=== PATIENT | male | born 1970 | race Caucasian/White ===

== ENCOUNTER 2024-02-09 16:49 | Inpatient (IN) ==
--- NOTE | 2024-02-09 17:11 | ED Triage Note ---
Date of Service February 09, 2024 Provider in Triage Author: Mauricio Patel History of Present Illness This patient was briefly evaluated while in triage. An abbreviated physical exam was performed. This patient is a 54-year-old Male who presents to the ED for evaluation abdominal pain, constipation x 2 weeks only passing gas using stool softeners, laxatives without relief had 2 surgeries this month: 01/25-colonoscopy with polypectomy and 01/31- parathyroidectomy Physical Exam GENERAL: NAD CARDIOVASCULAR: RRR RESPIRATORY: CTA ABDOMEN: BS x 4. Distended, diffusely TTP. Initial orders for labs and / or imaging were placed and patient was placed in the waiting area until a bed is available. Please see further documentation for the full ED course.
[2024-02-09 17:50] LABS: Basophils # (auto) 0.04 K/uL (0.00-0.20); Basophils % (auto) 0.2 %; Eosinophils # (auto) 0.07 K/uL (0.00-0.50); Eosinophils % (auto) 0.4 %; Hematocrit (blood only) 38.1 % (42.0-52.0); Hemoglobin 13.1 g/dl (14.0-18.0); Immature Granulocytes % (auto) 0.5 %; Lymphocytes % (auto) 13.6 %; Mean Corpuscular Hemoglobin 31.1 pg (25.0-34.0); Mean Corpuscular Hgb Conc 34.4 g/dL (32.0-36.0); Mean Corpuscular Volume 90.5 fL (80.0-100.0); Mean Platelet Volume 10.6 fL (9.4-12.4); Monocytes # (auto) 1.53 K/uL (0.11-0.59); Monocytes % (auto) 8.4 %; Neutrophils # (auto) 14.08 K/uL (1.40-6.50); Neutrophils % (auto) 76.9 %; Platelet Count 400 K/uL (130-400); RDW Coefficient of Variation 12.3 % (11.5-14.5); RDW Standard Deviation 40.7 fL (36.4-46.3); Red Blood Count 4.21 M/uL (4.70-6.10); White Blood Count 18.32 K/ul (4.8-10.8)
[2024-02-09 17:57] LABS: Albumin Globulin Ratio 1.3 (0.9-2); BUN Creatinine Ratio 22.1 (10-20); Bilirubin,Total 0.5 mg/dl (0.2-1.0); Calcium 9.7 mg/dl (8.6-10.3); Creatinine Clr Calc Pharmacy 87.6 ml/min; Potassium 3.4 mmol/L (3.5-5.1)
[2024-02-09 18:12] LABS: Thyroid Stimulating Hormone 1.439 uIu/ml (0.300-4.500)
--- NOTE | 2024-02-09 18:37 | XRay Report ---
EXAM: Radiograph of the Abdomen 1 View INDICATION: No bowel movement for 2 weeks. TECHNIQUE: Frontal supine view of the abdomen/pelvis. COMPARISON: 09/20/2015 FINDINGS: Limitations: None. Gastrointestinal tract: Large amounts of stool and redundant loops of right, transverse and proximal descending colon. The majority of the descending and the entire rectosigmoid colon only contains a small amount of gas. Organs: Increased soft tissue density in the pelvis could reflect distention of the urinary bladder. Bones/joints: On 1 view a small linear metallic density which has the appearance of a surgical clip projects over the coccyx. Soft tissues: No abnormality noted. No radiopaque foreign body noted. Vasculature: Stable right pelvic phleboliths. IMPRESSION: Large amounts of formed stool and redundant loops of right, transverse and proximal descending colon. The more distal colon is only filled with a small amount of gas. Developing colonic obstruction should be considered. CT abdomen pelvis with oral and IV contrast recommended. ACT 112: Negative or not required by law. Electronically signed by Ashely Escoto 02-09-2024 6:37 PM
[2024-02-09] MEDS: OPTIRAY 320 100ml IV ONE (18:40)
--- NOTE | 2024-02-09 18:59 | CT Scan Report ---
EXAM: CT Abdomen and Pelvis With Intravenous Contrast INDICATION: Constipation since colonoscopy 2 weeks ago. Polyp removed. TECHNIQUE: Axial computed tomography images of the abdomen and pelvis with intravenous contrast. Sagittal and coronal reformatted images were created and reviewed. This CT exam was performed using one or more of the following dose reduction techniques: automated exposure control, adjustment of the mA and/or kV according to patient size, and/or use of iterative reconstruction technique. CONTRAST: 90ml of Optiray 320 was administered intravenously. COMPARISON: Plain radiographs the same day and CT abdomen pelvis 09/20/2015 FINDINGS: Limitations: None. Lung bases: No abnormality noted. Pleural space: No visualized pleural effusion or pneumothorax. Heart: No abnormality noted. Mediastinum: No abnormality noted. ABDOMEN: Liver: No abnormality noted. Gallbladder and bile ducts: No calcified stones or surrounding fluid. Pancreas: Homogeneous enhancement. No mass, inflammation or ductal dilation. Spleen: No significant abnormality noted. Adrenals: No significant abnormality noted. Kidneys and ureters: There is bilateral heterogeneous renal enhancement and mild perinephric stranding left greater than right. There is mild bilateral hydroureteronephrosis. No stone. No urinary gas. Simple cyst noted in the left kidney. No further assessment required. Stomach and bowel: The collapsed rectum may be mildly thickened and inflamed. No perirectal fluid or gas. Large amounts of stool in the redundant right and transverse colon. The splenic flexure is mildly distended with air. The descending colon is relatively collapsed. Grossly normal appearance of the collapsed stomach suboptimally assessed. No intestinal thickening. No mesenteric inflammation. PELVIS: Appendix: No findings to suggest acute appendicitis. Bladder: The urinary bladder is moderate to severely distended measuring 15.1 cm long by 13.3 cm transverse by 15.4 cm AP. No stones or gas. No. Reproductive: The prostate has enlarged in the interval measuring 6.0 x 6.8 x 5.9 cm. There is a prominent nodule in the median lobe indenting the bladder measuring 1.8 x 2.4 x 1.9 cm. ABDOMEN and PELVIS: Intraperitoneal space: No free air. No significant fluid collection. Bones/joints: No acute changes. Soft tissues: No significant abnormality noted. Vasculature: No abdominal aortic aneurysm. Lymph nodes: No pathologically enlarged lymph nodes. IMPRESSION: 1. Question mild proctitis. 2. Bilateral pyelonephritis and mild hydroureteronephrosis to a moderate to severely distended urinary bladder. The hydronephrosis could reflect increased back pressure from the distended bladder. Correlate with urinalysis. 3. Large amounts of stool in the right and transverse colon without obstructing mass noted. 4. Enlarged prostate with a prominent nodule in the median lobe indenting the bladder. Correlate clinically for neoplasm. ACT 112: Negative or not required by law. Electronically signed by Ashely Escoto 02-09-2024 6:59 PM
[2024-02-09 19:07] LABS: Appearance Urine Clear (Clear); Bacteria Urine Automated None Seen (None Seen); Bilirubin Urine Negative (Negative); Blood Urine 1+ (Negative); Cast Urine Automated 0-2 /lpf (0-2); Color Urine Yellow; Epithelial Cell Urine Auto 0-2 /hpf (0-2); Glucose Urine UA Negative (Negative); Ketones Urine Negative (Negative); Leukocyte Esterase Urine 2+ (Negative); Nitrite Urine Negative (Negative); Protein Urine Negative (Negative); Specific Gravity Urine 1.019 (1.000-1.030); Urobilinogen Urine Negative (Negative); WBC Urine Automated 21-50 /hpf (0-5)
[2024-02-09] MEDS: MAGNESIUM HYDROXIDE SUSP 30 ML UDC PO ONE (19:47)
[2024-02-09] MEDS: cefTRIAXone SODIUM 2,000 MG/50 ML BAG IV STA (21:52)
--- NOTE | 2024-02-09 23:20 | Emergency Department Note ---
Impression & Plan Bladder outlet obstruction, Constipation, Postobstructive diuresis, Acute pyelonephritis ED Provider Note NAME: PARKER GARNER AGE: 54 SEX: M : 1970 ARRIVES VIA: Walk-In INFORMANT: Patient, ED PROVIDER(S): Ganga Hoskins MD CHIEF COMPLAINT: Constipation HPI: This is a 54-year-old male present for constipation. Patient states that he had a colonoscopy done about 2 weeks ago. Since then he has had no significant bowel movement. He had 1 small 1 with a suppository but otherwise no movement with other [id number] medications. He notes he is passing gas otherwise. He notes no trouble urinating. No fever, chills, nausea or vomiting. Does have abdominal pain. ROS: See above HPI for pertinent positives & negatives. A total of 10 systems reviewed and were otherwise negative. PAST MEDICAL HISTORY: See Below PAST SURGICAL HISTORY: See Below FAMILY HISTORY: See Below SOCIAL HISTORY: See Below HOME MEDICATIONS: See Below ALLERGIES: See Below VITALS: See Below PHYSICAL EXAMINATION: General: resting comfortably in no acute distress Head: Normocephalic and atraumatic Eyes: Normal inspection, extraocular muscles intact Ear, nose, throat: Normal external exam Neck: Normal range of motion Respiratory: lungs clear to auscultation bilaterally Cardiovascular: Regular rate/rhythm, no murmur GI: soft, nontender, no guarding or rebound Extremities: nontender, moves all extremities Neuro: The patient awake and alert, appropriately conversive, no focal deficits, symmetric faces Skin: Warm, dry, and intact MEDICAL DECISION MAKING: This is a 54-year-old male present for constipation. Patient has not had a bowel movement in over 2 weeks. KUB ordered at triage which does reveal significant stool burden as interpreted by me. CT imaging already ordered. -Upon independent interpretation the patient has significantly distended bladder. Patient did urinate for urinalysis but was only able to be about half of the urine cup. -Mann catheter placed by nursing staff with immediate 1600 cc returned this is emptied and patient had over 250. CC in the next hour. He has consistent 200 cc of urine per hour over the next 2 hours as well. -Concern for post obstructive diuresis -The CT imaging reveals Mild proctitis, bilateral pyelonephritis with mild hydroureteronephrosis and moderate severely distended urinary bladder. Large amount of stool in the right/transverse colon without obstructing mass. Otherwise there is a large prostate with a nodule which patient was made aware of. -Will give ceftriaxone for the pyelonephritis, urinalysis does confirm signs of UTI -Due to the combination of possible postobstructive diuresis, pyelonephritis bilaterally, elevated white count, will admit to hospital discussed care with Dr. Reid Differential diagnosis: Bowel perforation, bowel obstruction, colitis, diverticulitis, cholecystitis, pancreatitis, Independent History obtained from: [facility] interpreted by me: ECG: None Cardiac Monitoring: An order was placed for continuous cardiac monitoring. The monitor shows a rate of 60 with sinus rhythm. Past Med/Surg History Problem List (Updated 02/10/24 @ 01:04 by Ganga Hoskins MD) Acute pyelonephritis (Acute) Postobstructive diuresis (Acute) Constipation (Acute) Bladder outlet obstruction (Acute) Pyelonephritis Social History (System 12/19/21 @ 08:01 by Abby Mcqueen) Smoking Status: Current every day smoker Feels Safe at Home: Yes Allergies Allergies Allergy/AdvReac Type Severity Reaction Status Date / Time No Known Allergies Allergy Unverified 02/09/24 17:12 Home Meds Home Medications Medication Instructions Recorded Confirmed bisacodyl 10 mg rectal suppository 10 mg AR DAILY PRN Constipation 02/09/24 02/09/24 (Dulcolax (bisacodyl)) docusate sodium 100 mg capsule 100 mg PO UD PRN Constipation 02/09/24 02/09/24 (Colace) magnesium hydroxide 400 mg/5 mL 15 ml PO UD PRN Constipation 02/09/24 02/09/24 oral suspension (Milk of Magnesia) Results & Data (ED) Vital Signs Vital Signs - 24 hr 02/09/24 17:10 02/09/24 18:59 02/09/24 22:00 Temperature 36.4 C L Temperature Source Temporal Artery Scan Pulse Rate 98 H Pulse Rate [Apical] 85 65 Respiratory Rate 16 16 18 Respiratory Effort / Characteristics Non-Labored Spontaneous Respiratory Depth Normal Blood Pressure 155/102 H Blood Pressure [Right Arm] 159/113 H 133/88 Blood Pressure Mean 119 Blood Pressure Mean [Right Arm] 128 103 Blood Pressure Position Sitting Pulse Oximetry 98 98 97 Oxygen Delivery Method Room Air Room Air Sepsis Recent Fever Within 48 Hours No Sepsis New/Unexplained Change in Mental Status N/A Sepsis Action Taken by Nursing No Action Required Laboratory Data 02/09/24 17:22 02/09/24 17:22 Lab Results 02/09/24 Range/Units 17:22 WBC 18.32 H (4.8-10.8) K/ul RBC 4.21 L (4.70-6.10) M/uL Hgb 13.1 L (14.0-18.0) g/dl Hct 38.1 L (42.0-52.0) % MCV 90.5 (80.0-100.0) fL MCH 31.1 (25.0-34.0) pg MCHC 34.4 (32.0-36.0) g/dL RDW Std Deviation 40.7 (36.4-46.3) fL RDW Coeff of [place] 12.3 (11.5-14.5) % Plt Count 400 (130-400) K/uL MPV 10.6 (9.4-12.4) fL Immature Gran % (Auto) 0.5 % Neut % (Auto) 76.9 % Lymph % (Auto) 13.6 % [place] % (Auto) 8.4 % Eos % (Auto) 0.4 % Baso % (Auto) 0.2 % Neut # (Auto) 14.08 H (1.40-6.50) K/uL Lymph # (Auto) 2.50 (1.20-3.40) K/uL [place] # (Auto) 1.53 H (0.11-0.59) K/uL Eos # (Auto) 0.07 (0.00-0.50) K/uL Baso # (Auto) 0.04 (0.00-0.20) K/uL Immature Gran # (Auto) 0.10 (0.01-0.20) K/uL Sodium 138 (136-145) mmol/L Potassium 3.4 L (3.5-5.1) mmol/L Chloride 103 (98-107) mmol/L Carbon Dioxide 26 (21-32) mmol/L Anion Gap 9 (3-11) BUN 19 (6-23) mg/dl Creatinine 0.86 (0.6-1.4) mg/dl Est Cr Clr Drug Dosing 87.6 ml/min eGFR 102.26 BUN/Creatinine Ratio 22.1 H (10-20) Glucose 125 H (70-99(Fasting)) mg/dl Calcium 9.7 (8.6-10.3) mg/dl Total Bilirubin 0.5 (0.2-1.0) mg/dl AST 15 (13-39) U/L ALT 21 (7-52) U/L Alkaline Phosphatase 67 (34-104) U/L Total Protein 7.0 (6.0-8.3) gm/dl Albumin 4.0 (3.4-5.0) gm/dl Globulin 3.0 (2.5-4.0) gm/dl Albumin/Globulin Ratio 1.3 (0.9-2) Lipase 11 (11-82) U/L TSH 1.439 (0.300-4.500) uIu/ml Administered Medications Discontinued Medications Ceftriaxone Sodium (Rocephin) 2,000 mg in 50 mls @ 100 mls/hr IV NOW STA Stop: 02/09/24 21:56 Last Infusion: 02/09/24 22:25 Dose: Infused Documented By: MARIA LUZ Admin: 02/09/24 21:52 Dose: 100 mls/hr Documented By: MARIA LUZ Ioversol (Optiray 320 100ml) 90 ml IV ONCE ONE Stop: 02/09/24 18:40 Last Admin: 02/09/24 18:40 Dose: 90 ml Documented By: GERARD Magnesium Hydroxide (Magnesium Hydroxide Susp 30 Ml Udc) 30 ml PO NOW ONE Stop: 02/09/24 19:35 Last Admin: 02/09/24 19:47 Dose: 30 ml Documented By: MARIA LUZ Imaging Data Radiologist's Impression: Abdomen/Pelvis CT 02/09/24 17:11 EXAM: CT Abdomen and Pelvis With Intravenous Contrast INDICATION: Constipation since colonoscopy 2 weeks ago. Polyp removed. TECHNIQUE: Axial computed tomography images of the abdomen and pelvis with intravenous contrast. Sagittal and coronal reformatted images were created and reviewed. This CT exam was performed using one or more of the following dose reduction techniques: automated exposure control, adjustment of the mA and/or kV according to patient size, and/or use of iterative reconstruction technique. CONTRAST: 90ml of Optiray 320 was administered intravenously. COMPARISON: Plain radiographs the same day and CT abdomen pelvis 09/20/2015 FINDINGS: Limitations: None. Lung bases: No abnormality noted. Pleural space: No visualized pleural effusion or pneumothorax. Heart: No abnormality noted. Mediastinum: No abnormality noted. ABDOMEN: Liver: No abnormality noted. Gallbladder and bile ducts: No calcified stones or surrounding fluid. Pancreas: Homogeneous enhancement. No mass, inflammation or ductal dilation. Spleen: No significant abnormality noted. Adrenals: No significant abnormality noted. Kidneys and ureters: There is bilateral heterogeneous renal enhancement and mild perinephric stranding left greater than right. There is mild bilateral hydroureteronephrosis. No stone. No urinary gas. Simple cyst noted in the left kidney. No further assessment required. Stomach and bowel: The collapsed rectum may be mildly thickened and inflamed. No perirectal fluid or gas. Large amounts of stool in the redundant right and transverse colon. The splenic flexure is mildly distended with air. The descending colon is relatively collapsed. Grossly normal appearance of the collapsed stomach suboptimally assessed. No intestinal thickening. No mesenteric inflammation. PELVIS: Appendix: No findings to suggest acute appendicitis. Bladder: The urinary bladder is moderate to severely distended measuring 15.1 cm long by 13.3 cm transverse by 15.4 cm AP. No stones or gas. No. Reproductive: The prostate has enlarged in the interval measuring 6.0 x 6.8 x 5.9 cm. There is a prominent nodule in the median lobe indenting the bladder measuring 1.8 x 2.4 x 1.9 cm. ABDOMEN and PELVIS: Intraperitoneal space: No free air. No significant fluid collection. Bones/joints: No acute changes. Soft tissues: No significant abnormality noted. Vasculature: No abdominal aortic aneurysm. Lymph nodes: No pathologically enlarged lymph nodes. IMPRESSION: 1. Question mild proctitis. 2. Bilateral pyelonephritis and mild hydroureteronephrosis to a moderate to severely distended urinary bladder. The hydronephrosis could reflect increased back pressure from the distended bladder. Correlate with urinalysis. 3. Large amounts of stool in the right and transverse colon without obstructing mass noted. 4. Enlarged prostate with a prominent nodule in the median lobe indenting the bladder. Correlate clinically for neoplasm. ACT 112: Negative or not required by law. Electronically signed by Ashely Escoto 02-09-2024 6:59 PM KUB X-Ray 02/09/24 17:13 EXAM: Radiograph of the Abdomen 1 View INDICATION: No bowel movement for 2 weeks. TECHNIQUE: Frontal supine view of the abdomen/pelvis. COMPARISON: 09/20/2015 FINDINGS: Limitations: None. Gastrointestinal tract: Large amounts of stool and redundant loops of right, transverse and proximal descending colon. The majority of the descending and the entire rectosigmoid colon only contains a small amount of gas. Organs: Increased soft tissue density in the pelvis could reflect distention of the urinary bladder. Bones/joints: On 1 view a small linear metallic density which has the appearance of a surgical clip projects over the coccyx. Soft tissues: No abnormality noted. No radiopaque foreign body noted. Vasculature: Stable right pelvic phleboliths. IMPRESSION: Large amounts of formed stool and redundant loops of right, transverse and proximal descending colon. The more distal colon is only filled with a small amount of gas. Developing colonic obstruction should be considered. CT abdomen pelvis with oral and IV contrast recommended. ACT 112: Negative or not required by law. Electronically signed by Ashely Escoto 02-09-2024 6:37 PM Discharge Plan Visit Data Chief Complaint: Abdominal Pain Stated Complaint: ABD PAIN, CONSTIPATION, ED Provider: Ganga Hoskins Discharge Problem: Bladder outlet obstruction, Constipation, Postobstructive diuresis, Acute pyelonephritis Discharge Instructions Interventions: ED Discharge Assessment Last Done: 02/09/24 23:55
--- NOTE | 2024-02-09 23:55 | History & Physical Report ---
Date of Service February 09, 2024 Assessment & Plan (1) Pyelonephritis: Plan: 51-year-old male with past medical history significant for primary hyperparathyroidism, parathyroid adenoma, GERD, osteoporosis, ongoing tobacco abuse presents with abdominal pain and constipation. Patient had colonoscopy on January 26, 2024. Patient states since colonoscopy did not moved his bowels. He thinks he is micturating okay. Last few days he is having some pain while m icturating. Denies any blood in the urine. Denies any fevers. He also has abdominal pain which got progressively worse to 8/10 in severity. Has some nausea. No vomiting. Appetite has been down. Denies chest pain or shortness of. No headache. Vision is okay. No runny nose or sore throat. No cough. Hemodynamics are okay. Pyelonephritis 53-year-old male present with abdominal pain, constipation CT scan showing distended bladder and enlarged prostate, bilateral perinephritis and mild hydroureteronephrosis Status post Mann catheter in the ER which drained significant amount of urine UA is positive and has leukocytosis Received Rocephin in the ER Will continue with Zosyn IV fluids Consult urology in a.m. for further recommendations Close monitor Proctitis Constipation possibly from above Empiric Zosyn Patient had colonoscopy on January 26, 2024 and had polypectomy in the rectosigmoid region which showed tubulovillous adenoma with focal surface high- grade dysplasia and plan for repeat colonoscopy 9 months Follow-up with GI History of hyperparathyroidism primary Status post parathyroidectomy Biopsy showed parathyroid adenoma Follow-up with endocrinology and ENT DVT prophylaxis SCDs for now Disposition Medical floor Full code. History of Present Illness Chief Complaint: Constipation and abdominal pain Primary Care Provider: Sylvia Rubin MD 51-year-old male with past medical history significant for primary hyperparathyroidism, parathyroid adenoma, GERD, osteoporosis, ongoing tobacco abuse presents with abdominal pain and constipation. Patient had colonoscopy on January 26, 2024. Patient states since colonoscopy did not moved his bowels. He thinks he is micturating okay. Last few days he is having some pain while micturating. Denies any blood in the urine. Denies any fevers. He also has abdominal pain which got progressively worse to 8/10 in severity. Has some nausea. No vomiting. Appetite has been down. Denies chest pain or shortness of. No headache. Vision is okay. No runny nose or sore throat. No cough. Hemodynamics are okay. Past medical history. As mentioned above Past surgical history. Colonoscopy. EGD. Bilateral parathyroidectomy. Social history. Smokes 0.5 packs a day for last 26 years. No alcohol use currently. No drug use. Family history. Father had diabetes. Allergies Allergy/AdvReac Type Severity Reaction Status Date / Time No Known Allergies Allergy Unverified 02/09/24 17:12 Home Medications Medication Instructions Recorded Confirmed Type bisacodyl 10 mg rectal suppository 10 mg LA DAILY PRN Constipation 02/09/24 02/09/24 History (Dulcolax (bisacodyl)) docusate sodium 100 mg capsule 100 mg PO UD PRN Constipation 02/09/24 02/09/24 History (Colace) magnesium hydroxide 400 mg/5 mL 15 ml PO UD PRN Constipation 02/09/24 02/09/24 History oral suspension (Milk of Magnesia) Past Med/Surg History Problem List (Updated 02/10/24 @ 01:04 by Ganga Hoskins MD) Acute pyelonephritis (Acute) Postobstructive diuresis (Acute) Constipation (Acute) Bladder outlet obstruction (Acute) Pyelonephritis Social History (System 12/19/21 @ 08:01 by Abby Mcqueen) Smoking Status: Light tobacco smoker Tobacco Type: Cigarettes Second Hand Exposure: No; Do You Dip or Chew Tobacco: No; Tobacco Cessation Education Requested by Patient: No Hx Alcohol Use: No Hx Substance Use: No Preferred Language: Serbian Communication Ability: Effective Bin Piler Required: No Beliefs That Will Affect Care: None Current Living Situation: Parent Other Information That Helps Us Care for You: Yes Feels Safe at Home: Yes Safety Concerns: Feels Safe At This Time Assistive Devices: Glasses Review of Systems Review of Systems: All systems reviewed & are unremarkable except as noted in HPI & below Physical Exam Physical Exam: General- Not in distress Head- atraumatic Eyes- PERRL. ENT- oropharynx clear Neck- supple, no JVD. Lungs- clear to auscultation no wheezing or crackles. Heart- regular rhythm; no murmur, no gallop. Abdomen- normal bowel sounds, soft, mild diffuse discomfort, no distension. Extremities- no pretibial edema, no erythema seen. Neuro- alert, oriented , PERRL,no facial palsy; no dysarthria; moves extremi ties. Results & Data Results & Data Vital Signs (Past 12 Hours) Vital Signs Temp Pulse Pulse Resp BP BP Pulse Ox 02/09/24 18:59 85 16 159/113 H 98 02/09/24 17:10 36.4 C L 98 H 16 155/102 H 98 O2 Del Method 02/09/24 18:59 Room Air 02/09/24 17:10 Room Air Diagnostic Findings Laboratory Results WBC 18.32 K/ul (4.8-10.8) H 02/09/24 17:22 RBC 4.21 M/uL (4.70-6.10) L 02/09/24 17:22 Hgb 13.1 g/dl (14.0-18.0) L 02/09/24 17:22 Hct 38.1 % (42.0-52.0) L 02/09/24 17:22 MCV 90.5 fL (80.0-100.0) 02/09/24 17:22 MCH 31.1 pg (25.0-34.0) 02/09/24 17:22 MCHC 34.4 g/dL (32.0-36.0) 02/09/24 17:22 RDW Std Deviation 40.7 fL (36.4-46.3) 02/09/24 17:22 RDW Coeff of Lavon 12.3 % (11.5-14.5) 02/09/24 17:22 Plt Count 400 K/uL (130-400) 02/09/24 17:22 MPV 10.6 fL (9.4-12.4) 02/09/24 17:22 Immature Gran % (Auto) 0.5 % 02/09/24 17:22 Neut % (Auto) 76.9 % 02/09/24 17:22 Lymph % (Auto) 13.6 % 02/09/24 17:22 [place]bach % (Auto) 8.4 % 02/09/24 17:22 Eos % (Auto) 0.4 % 02/09/24 17:22 Baso % (Auto) 0.2 % 02/09/24 17:22 Neut # (Auto) 14.08 K/uL (1.40-6.50) H 02/09/24 17:22 Lymph # (Auto) 2.50 K/uL (1.20-3.40) 02/09/24 17:22 [place] # (Auto) 1.53 K/uL (0.11-0.59) H 02/09/24 17:22 Eos # (Auto) 0.07 K/uL (0.00-0.50) 02/09/24 17:22 Baso # (Auto) 0.04 K/uL (0.00-0.20) 02/09/24 17:22 Immature Gran # (Auto) 0.10 K/uL (0.01-0.20) 02/09/24 17:22 Sodium 138 mmol/L (136-145) 02/09/24 17:22 Potassium 3.4 mmol/L (3.5-5.1) L 02/09/24 17:22 Chloride 103 mmol/L (98-107) 02/09/24 17:22 Carbon Dioxide 26 mmol/L (21-32) 02/09/24 17:22 Anion Gap 9 (3-11) 02/09/24 17:22 BUN 19 mg/dl (6-23) 02/09/24 17:22 Creatinine 0.86 mg/dl (0.6-1.4) 02/09/24 17:22 Est Cr Clr Drug Dosing 87.6 ml/min 02/09/24 17:22 eGFR 102.26 02/09/24 17:22 BUN/Creatinine Ratio 22.1 (10-20) H 02/09/24 17:22 Glucose 125 mg/dl (70-99(Fasting)) H 02/09/24 17:22 Calcium 9.7 mg/dl (8.6-10.3) 02/09/24 17:22 Total Bilirubin 0.5 mg/dl (0.2-1.0) 02/09/24 17:22 AST 15 U/L (13-39) 02/09/24 17:22 ALT 21 U/L (7-52) 02/09/24 17:22 Alkaline Phosphatase 67 U/L (34-104) 02/09/24 17:22 Total Protein 7.0 gm/dl (6.0-8.3) 02/09/24 17:22 Albumin 4.0 gm/dl (3.4-5.0) 02/09/24 17:22 Globulin 3.0 gm/dl (2.5-4.0) 02/09/24 17:22 Albumin/Globulin Ratio 1.3 (0.9-2) 02/09/24 17:22 Lipase 11 U/L (11-82) 02/09/24 17:22 TSH 1.439 uIu/ml (0.300-4.500) 02/09/24 17:22 Urine Color Yellow 02/09/24 Unknown Urine Appearance Clear (Clear) 02/09/24 Unknown Urine pH 5.0 (4.5-7.5) 02/09/24 Unknown Ur Specific Mohawk 1.019 (1.000-1.030) 02/09/24 Unknown Urine Protein Negative (Negative) 02/09/24 Unknown Urine Glucose (UA) Negative (Negative) 02/09/24 Unknown Urine Ketones Negative (Negative) 02/09/24 Unknown Urine Blood 1+ (Negative) H 02/09/24 Unknown Urine Nitrite Negative (Negative) 02/09/24 Unknown Urine Bilirubin Negative (Negative) 02/09/24 Unknown Urine Urobilinogen Negative (Negative) 02/09/24 Unknown Ur Leukocyte Esterase 2+ (Negative) H 02/09/24 Unknown Urine WBC (Auto) 21-50 /hpf (0-5) H 02/09/24 Unknown Urine RBC (Auto) 3-5 /hpf (0-2) H 02/09/24 Unknown U Hyaline Cast (Auto) 0-2 /lpf (0-2) 02/09/24 Unknown U Epithel Cells (Auto) 0-2 /hpf (0-2) 02/09/24 Unknown Urine Bacteria (Auto) None Seen (None Seen) 02/09/24 Unknown Impressions Abdomen/Pelvis CT 02/09/24 17:11 EXAM: CT Abdomen and Pelvis With Intravenous Contrast INDICATION: Constipation since colonoscopy 2 weeks ago. Polyp removed. TECHNIQUE: Axial computed tomography images of the abdomen and pelvis with intravenous contrast. Sagittal and coronal reformatted images were created and reviewed. This CT exam was performed using one or more of the following dose reduction techniques: automated exposure control, adjustment of the mA and/or kV according to patient size, and/or use of iterative reconstruction technique. CONTRAST: 90ml of Optiray 320 was administered intravenously. COMPARISON: Plain radiographs the same day and CT abdomen pelvis 09/20/2015 FINDINGS: Limitations: None. Lung bases: No abnormality noted. Pleural space: No visualized pleural effusion or pneumothorax. Heart: No abnormality noted. Mediastinum: No abnormality noted. ABDOMEN: Liver: No abnormality noted. Gallbladder and bile ducts: No calcified stones or surrounding fluid. Pancreas: Homogeneous enhancement. No mass, inflammation or ductal dilation. Spleen: No significant abnormality noted. Adrenals: No significant abnormality noted. Kidneys and ureters: There is bilateral heterogeneous renal enhancement and mild perinephric stranding left greater than right. There is mild bilateral hydroureteronephrosis. No stone. No urinary gas. Simple cyst noted in the left kidney. No further assessment required. Stomach and bowel: The collapsed rectum may be mildly thickened and inflamed. No perirectal fluid or gas. Large amounts of stool in the redundant right and transverse colon. The splenic flexure is mildly distended with air. The descending colon is relatively collapsed. Grossly normal appearance of the collapsed stomach suboptimally assessed. No intestinal thickening. No mesenteric inflammation. PELVIS: Appendix: No findings to suggest acute appendicitis. Bladder: The urinary bladder is moderate to severely distended measuring 15.1 cm long by 13.3 cm transverse by 15.4 cm AP. No stones or gas. No. Reproductive: The prostate has enlarged in the interval measuring 6.0 x 6.8 x 5.9 cm. There is a prominent nodule in the median lobe indenting the bladder measuring 1.8 x 2.4 x 1.9 cm. ABDOMEN and PELVIS: Intraperitoneal space: No free air. No significant fluid collection. Bones/joints: No acute changes. Soft tissues: No significant abnormality noted. Vasculature: No abdominal aortic aneurysm. Lymph nodes: No pathologically enlarged lymph nodes. IMPRESSION: 1. Question mild proctitis. 2. Bilateral pyelonephritis and mild hydroureteronephrosis to a moderate to severely distended urinary bladder. The hydronephrosis could reflect increased back pressure from the distended bladder. Correlate with urinalysis. 3. Large amounts of stool in the right and transverse colon without obstructing mass noted. 4. Enlarged prostate with a prominent nodule in the median lobe indenting the bladder. Correlate clinically for neoplasm. ACT 112: Negative or not required by law. Electronically signed by Ashely Escoto 02-09-2024 6:59 PM KUB X-Ray 02/09/24 17:13 EXAM: Radiograph of the Abdomen 1 View INDICATION: No bowel movement for 2 weeks. TECHNIQUE: Frontal supine view of the abdomen/pelvis. COMPARISON: 09/20/2015 FINDINGS: Limitations: None. Gastrointestinal tract: Large amounts of stool and redundant loops of right, transverse and proximal descending colon. The majority of the descending and the entire rectosigmoid colon only contains a small amount of gas. Organs: Increased soft tissue density in the pelvis could reflect distention of the urinary bladder. Bones/joints: On 1 view a small linear metallic density which has the appearance of a surgical clip projects over the coccyx. Soft tissues: No abnormality noted. No radiopaque foreign body noted. Vasculature: Stable right pelvic phleboliths. IMPRESSION: Large amounts of formed stool and redundant loops of right, transverse and proximal descending colon. The more distal colon is only filled with a small amount of gas. Developing colonic obstruction should be considered. CT abdomen pelvis with oral and IV contrast recommended. ACT 112: Negative or not required by law. Electronically signed by Ashely Escoto 02-09-2024 6:37 PM Code Status & VTE Plan VTE Prophylaxis Plan VTE Prophylaxis will be ordered: Yes
[2024-02-10] MEDS ORDERED: ONDANSETRON INJ 2 MG/ML 2 ML VIAL IV PRN (01:59)
[2024-02-10] MEDS ORDERED: POLYETHYLENE (MIRALAX) 17 GM PACK PO PRN (01:59)
[2024-02-10] MEDS ORDERED: ACETAMINOPHEN 325 MG TAB PO PRN (01:59)
[2024-02-10] MEDS ORDERED: MoRPHine SULFATE 4 MG/ML 1 ML CARP\\VIAL IV PRN (01:59)
[2024-02-10] MEDS: PIPERACILLIN/TAZOBACTAM 4.5 GM/100 ML BAG IV SCH (02:34)
[2024-02-10] MEDS: SODIUM CHLORIDE 0.9% 1,000 ML IV SCH (02:34)
[2024-02-10] MEDS: POTASSIUM CHLORIDE CRTAB 20 MEQ TABCR PO STA (02:54)
[2024-02-10 05:49] LABS: Basophils # (auto) 0.03 K/uL (0.00-0.20); Basophils % (auto) 0.3 %; Eosinophils # (auto) 0.18 K/uL (0.00-0.50); Eosinophils % (auto) 1.9 %; Hemoglobin 11.5 g/dl (14.0-18.0); Immature Granulocytes # (auto) 0.04 K/uL (0.01-0.20); Immature Granulocytes % (auto) 0.4 %; Lymphocytes % (auto) 30.3 %; Mean Corpuscular Hemoglobin 30.9 pg (25.0-34.0); Mean Corpuscular Hgb Conc 33.8 g/dL (32.0-36.0); Mean Corpuscular Volume 91.4 fL (80.0-100.0); Mean Platelet Volume 10.4 fL (9.4-12.4); Monocytes % (auto) 9.4 %; Neutrophils # (auto) 5.52 K/uL (1.40-6.50); Neutrophils % (auto) 57.7 %; Platelet Count 361 K/uL (130-400); RDW Coefficient of Variation 12.4 % (11.5-14.5); RDW Standard Deviation 41.4 fL (36.4-46.3); Red Blood Count 3.72 M/uL (4.70-6.10); White Blood Count 9.57 K/ul (4.8-10.8)
[2024-02-10 06:04] LABS: Calcium 8.8 mg/dl (8.6-10.3); Creatinine Clr Calc Pharmacy 95.3 ml/min; Potassium 3.6 mmol/L (3.5-5.1)
--- OUTSIDE RECORDS SUMMARY | 2024-02-10 08:51 | External Medical Summary | Summary of Care ---
Author Name Unknown Organization [facility] Address [address] [facility] [place] [address] Phone [phone] Care Team Providers Care Steward/Stewardess Name Role Phone Sylvia Andino MD Primary Care Prov ider Reason for Visit * Reason Onset Date Comments Test Results 02/08/2024 Encounter Details Date Type Department Care Team (Late st Contact Info) Description 02/08/2024 Telephone Otolaryngology [facility] [address] [place] [address] Elliot Marti DO [address] [place] [id number] Test Results Allergies No known active allergiesdocumented as of this encounter (statuses as of 02/08/2024) Medications No known medicationsdocumented as of this encounter (statuses as of 02/08/2024) Active Problems Problem Noted Date Diagnosed Date Hyperparathyroidism, primary 12/14/2023 Parathyroid adenoma 12/07/2023 Other osteoporosis without current pathological fracture 12/07/2023 IgG Gliadin antibody positive 05/26/2023 Bloating 05/26/2023 Gastroesophageal reflux disease without esophagi tis 11/12/2014 Tobacco use disorder documented as of this encounter (statuses as of 02/08/2024) Resolved Problems Problem Noted Date Diagnosed Date Resolved Date ADVANCE DIRECTIVE INFORMATION 02/09/2005 12/27/2023 Overview (02/09/2005): No, Advance Directive brochure given to patient. documented as of this encounter (statuses as of 02/08/2024) Immunizations Name Administration Dates Next Due Pneumococcal Polysaccharide PPV23 (Pneumovax) 05/05/2012,09/03/2008(Deferred: Patient Refused) Seasonal Influenza Vac., MDV , IM, 0.5 mL (Fluzone) 11/12/2014,11/05/2008 TDAP (age 10 and older)(Boostrix) 05/26/2023 TDAP, Age 7 and older, IM (Adacel) 03/13,09/03/2008(Deferred: Patient Refused) Zoster Vaccine Recombinant (Shingrix) 05/26/2023 documented as of this encounter Social History Tobacco Use Types Packs/Day Years Used Date Smoking Tobacco: Every Day Cigarettes 0.5 26 Smokeless Tobacco: Never Comments:age 16 Alcohol Use Standard Drinks/Week Comments Not Currently 0 (1 standard drink = 0.6 oz pur e alcohol) quit 5 years ago ( 2018) Hunger Vital Sign Answer Date Recorded Within the past 12 months, y ou worried that your food would run out before you got the money to buy more. Never true 05/19/19 24 Within the past 12 months, t he food you bought just didn't last and you didn't have money to get more. Never true 05/19/2023 Childcare Answer Date Recorded Do you feel overwhelmed with taking care of a child, family member or friend? No 05/19/2023 Does your family need help f inding childcare? (Household - for ages 0-17 years) Not on file 05/19/2023 Clothing Answer Date Recorded Have you been unable to get clothing when it was really needed? No 05/19/2023 Is your family able to get c lothes or diapers when needed? (Household - for ages 0-17 years) Not on file 05/19/2023 Personal Safety Answer Date Recorded Do you feel unsafe or have concerns for your saf ety? No 05/19/2023 Do you have concerns for you r family's safety? (Household - for ages 0-17 years) Not on file 05/19/2023 Utilities Answer Date Recorded Do you have trouble paying y our heating, water, or electric bill? No 05/19/2023 Is your family able to pay t he heat, water, or electric bill? (Household - for ages 0-17 years) Not on file 05/19/2023 Does your family have access to good internet? (Household - for ages 0-17 years) Not on file 05/19/2023 Employment Status Answer Date Recorded Are you unemployed or without regular income? No 05/19/2023 Does the household have a re gular source of income? (Household - for ages 0-17 years) Not on file 05/19/2023 Social Connections Answer Date Recorded How often do you feel lonely or isolated from th ose around you? Never 05/19/2023 Financial Resource Strain Answer Date R ecorded Do you have any trouble payi ng for your medications, or do you think you might in the future? No 05/19/2023 Does your family have troubl e paying for medicine? (Household - for ages 0-17 years) Not on file 05/19/2023 Transportation Needs Answer Date Record ed READ ONLY Do you have troubl e getting a ride to medical visits or work? Never True 05/19/2023 Does your family have a hard time getting a ride to doctors visits? (Household - for ages 0-17 years) Not on file 05/19/2023 Has lack of transportation k ept you from medical appointments, meetings, work, or from getting things needed for daily living? Check all that apply. (Adult - for ages 18 years and over) Not on file 05/19/2023 Do you (or your family) have trouble finding or paying for a ride (transportation)? (Household - for ages 0-17 years) Not on file 05/19/2023 Housing Stability Answer Date Recorded Do you currently live in a s helter or have no steady place to sleep at night? No 05/19/2023 READ ONLY Do you think you a re at risk of becoming homeless? No 05/19/2023 Does your family worry about paying for your home or becoming homeless? (Household - for ages 0-17 years) Not on file 0 05/19/2023 Are you homeless or worried that you might be in the future? (Adult - for ages 18 years and over) Not on file Are you (or your family) dolores eless or worried that you might be in the future? (Household - for ages 0-17 years) Not on file Food Insecurity Answer Date Recorded Do you need food for this week? No 05/19/2023 Are you able to get enough f ood for your family? (Household - for ages 0-17 years) Not on file 05/19/2023 Does your family need food t his week? (Household - for ages 0-17 years) Not on file 05/19/2023 Do you always have enough fo od for your family? 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 Pt voiced understanding. * Telephone Encounter - Mili Kraft LPN - 02/08/2024 1:12 PM EST LMOM for pt to return call. * Telephone Encounter - Elliot Marti DO - 02/08/2024 12:53 PM EST Please let patient know his calcium is actually slightly high. He can stop taking the Tums. Thanks Elliot Marti DO, [facility] Coding Compliance Specialist, Department of Otolaryngology-Head and Neck Surgery [facility], [place] 02/08/2024 12:53 PM documented in this encounter Plan of Treatment Upcoming Encounters Date Type Department Care Team (Late st Contact Info) Description 05/31/2024 11:00 AM EDT Office Visit Family Medicine [address] [place] [phone] Sylvia Andino MD [address] [place] [address] [place] [phone] Health Maintenance Due Date Last Done Comments Hepatitis B Vaccine (1 of 3 - 19+ 3-dose series) 02/03/1988 Pneumococcal Vaccine: Pediatrics (0 to 5 Years) and At-Risk Patients (6 to 64 Years) (2 of 2 - PCV) 05/05/2013 05/05/2012 Cologuard 2014 Fecal Occult Blood Test 2014 Sigmoidoscopy 2014 Depression Screening 12/01/2015 11/30/2014 Zoster Vaccines (2 of 2) 07/21/2023 05/26/2023 COVID-19 Vaccine (1 - 2023-2 5 season) 2023 Influenza Vaccine (FLU shot) (#1) 2023 11/12/2014, 11/05/2008 *BISPHONATE OR OTHER ACCEPTABLE MEDICATION NEEDED FOR OSTEOPOROSIS (REFER TO SMARTSET #1146) 12/10/2023 DXA Scan 12/05/2025 12/06/2023, 12/06/2023 Lipid Panel 05/25/2028 05/26/2023, 05/05/2012, 02/09/2005 DTap/Tdap Vaccines (3 - Td o r Tdap) 05/25/2033 05/26/2023, 03/13/2011 Colonoscopy 01/25/2034 01/26/2024, 11/01/2023, 11/01/2023 Colorectal Cancer Screening 01/25/2034 VITAMIN D LEVEL ONCE IN A LIFETIME-USE SMARTSET# 11052 Completed 06/28/2023 HPV (Gardasil) Vaccine Aged Out No lo nger eligible based on patient's age to complete this topic MENINGOCOCCAL (MENACTRA/MENVEO) Aged Out No longer eligible b ased on patient's age to complete this topic documented as of this encounter Medical Devices Not on filedocumented as of this encounter Care Teams Steward/Stewardess Relationship Specialty Start Date End Date Sylvia Andino MD [address] [place] [address] [place] [phone] PCP - General Family Medicine 05/26/23 documented as of this encounter
--- OUTSIDE RECORDS SUMMARY | 2024-02-10 08:52 | External Medical Summary | Summary of Care ---
Author Name Unknown Organization [facility] Address [address] [facility] [place] [address] Phone [phone] Care Team Providers Care Kiln Worker Name Role Phone Sylvia Andino MD Primary Care Prov ider Reason for Visit * Reason Comments Outpatient Testing Encounter Details Date Type Department Care Team (Late st Contact Info) Description 02/08/2024 12:00 PM EST Laboratory Laboratory, [facility] [address] [place] [id number] [facility] [address] [place] [address] Hyperparathyroidism, primary (HCC) Allergies No known active allergiesdocumented as of [...] 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 Not on file Not on fi le documented as of this encounter Plan of Treatment Upcoming Encounters Date Type Department Care Team (Late st Contact Info) Description 05/31/2024 11:00 AM EDT Office Visit Family Medicine [address] [phone] Sylvia Andino MD [address] [place] [address] [place] [phone] Pending Results Name Type Priority Associated Diagnoses Date /Time CALCIUM Lab Routine Hyperparathyroidism, primary (HCC) 02/08/2024 11:43 AM EST PTH Lab Routine Hyperparathyroidism, primary (HCC) 02/08/2024 11:43 AM EST Health Maintenance Due Date Last Done Comments [...] D LEVEL ONCE IN A LIFETIME-USE SMARTSET# 13128 Completed 06/28/2023 HPV (Gardasil) Vaccine Aged Out No lo nger eligible based on patient's age to complete this topic MENINGOCOCCAL (MENACTRA/MENVEO) Aged Out No longer eligible b ased on patient's age to complete this topic documented as of this encounter Medical Devices Not on filedocumented as of this encounter Visit Diagnoses Diagnosis Hyperparathyroidism, primary (HCC) Primary hyperparathyroidism documented in this encounter Care Teams Kiln Worker Relationship Specialty Start Date End Date Sylvia Andino MD [address] [place] [address] [place] [phone] PCP - General Family Medicine 05/26/23 documented as of this encounter
--- OUTSIDE RECORDS SUMMARY | 2024-02-10 08:52 | External Medical Summary ---
Author Name Unknown Address Unknown Organization K[place] [place] [address] [place] [address] Laboratory Report Ordering Provider Test Date Status JANIYA SAEED 02/01/2024 09:07:00 Final Observation Date Value Abnormality Reference (Units ) Status Parathyrin.intact [Mass/volume] in Serum or Plasma 02/01/2024 09:07:00 90 Above high normal 10-65 (pg/mL) Final Told OR18 at 0918 Performing Location [facility] [place] [address] [place] [id number]
--- OUTSIDE RECORDS SUMMARY | 2024-02-10 08:52 | External Medical Summary | Summary of Care ---
Author Name Unknown Organization [facility] Address [address] [place] [address] Phone [phone] Care Team Providers Care Manager Material Name Role Phone Sylvia Andino MD Primary Care Prov ider Encounter Details Date Type Department Care Team (Late st Contact Info) Description 01/27/2024 Orders Only Endocrinology Matthew Castillo [place] [address] [place] [address] Liam Kimble MD [address] [place] [address] Allergies No known active allergiesdocumented as of this encounter (statuses as of 01/27/2024) Medications No known medicationsdocumented as of this encounter (statuses as of 01/27/2024) Active Problems Problem Noted Date Diagnosed Date Hyperparathyroidism, primary 12/14/2023 Parathyroid adenoma 12/07/2023 Other osteoporosis without current pathological fracture 12/07/2023 IgG Gliadin antibody positive 05/26/2023 Bloating 05/26/2023 Gastroesophageal reflux disease without esophagi tis 11/12/2014 Tobacco use disorder documented as of this encounter (statuses as of 01/27/2024) Resolved Problems Problem Noted Date Diagnosed Date Resolved Date ADVANCE DIRECTIVE INFORMATION 02/09/2005 12/27/2023 Overview (02/09/2005): No, Advance Directive brochure given to patient. 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 Thanks documented in this encounter Plan of Treatment Upcoming Encounters Date Type Department Care Team (Latest Contact Info) Description 02/01/2024 7:30 AM EST Hospital Encounter [facility], OPERATING ROOM [facility] [address] [facility] [place] [address] Elliot Marti, [address] [place] [id number] 02/01/2024 7:30 AM EST - 02/01/2024 9:52 AM EST Surgery OR [facility], OPERATING ROOM [facility] [address] [facility] [place] [address] Elliot Marti, [address] [place] [id number] PARATHYROIDECTOMY 02/08/2024 11:45 AM EST Office Visit Otolaryngology [facility] [address] [place] [address] Elliot Marti DO [address] [place] [id number] 05/31/2024 11:00 AM EDT Office Visit Family Medicine [address] [place] [phone] Sylvia Andino MD [address] [place] [address] [place] [address] Scheduled Procedures Name Priority Associated Diagnoses Date/Ti me PARATHYROIDECTOMY Hyperparathyroidism, primary (HCC) 02/01/2024 7:30 AM EST Health Maintenance Due Date Last [...] D LEVEL ONCE IN A LIFETIME-USE SMARTSET# [id number] Completed 06/28/2023 HPV (Gardasil) Vaccine Aged Out No lo nger eligible based on patient's age to complete this topic MENINGOCOCCAL (MENACTRA/MENVEO) Aged Out No longer eligible b ased on patient's age to complete this topic documented as of this encounter Medical Devices Not on filedocumented as of this encounter Care Teams Manager Material Relationship Specialty Start Date End Date Sylvia Andino MD [address] [place] [address] [place] [address] PCP - General Family Medicine 05/26/23 documented as of this encounter
--- OUTSIDE RECORDS SUMMARY | 2024-02-10 08:52 | External Medical Summary | Summary of Care ---
Author Name Unknown Organization [facility] Address [address] [place] [address] Phone [phone] Care Team Providers Care Supervisor [employer] Name Role Phone Sylvia Andino MD Primary Care Prov ider Reason for Visit * Auth/Cert Specialty Diagnoses / Procedures Referred By Contac t Referred To Contact Diagnoses Hyperparathyroidism, primary (HCC) Hyperparathyroidism, primary (HCC) [E21.0] Procedures EXPLORE PARATHYROID GLANDS PARATHYROIDECTOMY Elliot Marti DO [address] [place] [address] Phone: tel: fax: [facility] [address] [facility] [place] [address] Phone: tel: Referral ID Status Reason Start Date Expiration Date Visits Re quested Visits Authorized [id number] Encounter Details Date Type Department Care Team (Latest Contact Info) Description 02/01/2024 5:45 AM EST - 02/01/2024 11:41 AM EST Hospital Encounter [facility], O[facility]ATING [facility] [address] [facility] [place] [address] Elliot Marti DO [address] [place] [address] Discharge Disposition: Home - Self Care Allergies No known active allergiesdocumented as of this encounter (statuses as of 02/01/2024) Medications oxyCODONE HCl 5 MG Oral Tablet (Oxy IR) Take 1 Tablet by mouth every 4 hours as needed for Pain, Severe. 11 Tablet 02/01/2024 Active documented as of this encounter (statuses as of 02/01/2024) Active Problems Problem Noted Date Diagnosed Date Hyperparathyroidism, primary 12/14/2023 Parathyroid adenoma 12/07/2023 Other osteoporosis without current pathological fracture 12/07/2023 IgG Gliadin antibody positive 05/26/2023 Bloating 05/26/2023 Gastroesophageal reflux disease without esophagi tis 11/12/2014 Tobacco use disorder documented as of this encounter (statuses as of 02/01/2024) Resolved Problems Problem Noted Date Diagnosed Date Resolved Date ADVANCE DIRECTIVE INFORMATION 02/09/2005 12/27/2023 Overview (02/09/2005): No, Advance Directive brochure given to patient. documented as of this encounter (statuses as of 02/01/2024) Immunizations Name Administration Dates Next Due Pneumococcal [...] 05/19/2023 Does the household have a re lar source of income? 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 file Not on file Not on fi le documented as of this encounter Last Filed Vital Signs Vital Sign Reading Time Taken Comments Blood Pressure 131/87 02/01/2024 11:15 AM EST Pulse 86 02/01/2024 11:30 AM EST Temperature 36.5 C (97.7 F) 02/01/2024 10:[address] Respiratory Rate 17 02/01/2024 11:30 AM EST Oxygen Saturation 98% 02/01/2024 11:30 AM EST Inhaled Oxygen Concentration - - Weight 68.2 kg (150 lb 4.8 oz) 02/01/2024 5:57 A M EST Height 167.6 cm (5' 6") 02/01/2024 5:57 AM EST Body Mass Index 24.26 02/01/2024 5:57 AM EST documented in this encounter Discharge Instructions * Discharge Instr - AVS* Zane Lantigua MD - 02/01/2024 9:56 AM EST You may call Dr. Marti of the department of ENT at [phone] during business hours for any questions or test results. For after-hours emergencies call [phone] and have your doctor paged. The information below provides you with the instructions and the list of medications you need to betaking following discharge from the hospital. If you have any questions, please ask before leaving.Please carry this letter with you when you see your doctor in the clinic. If you have questions, you can reach us at the numbers above. Diet: Regular diet, as tolerated If nausea should occur, have clear liquids only until stomach has settled. Activity: Rest today and tomorrow, and then increase activity as tolerated. No strenuous activity for 3 weeks. Driving: One week and no driving within 24 hours of taking narcotic pain medication Date you may return to work or school: Two weeks These follow-up appointments have been scheduled or are in the process of being scheduled. If you have questions about your appointments, please call . When asked to state the name of the physician, please say "Hospital Discharge". Follow up in one week with Dr. Marti. Special Instructions: Post-Op Instructions - Thyroidectomy/Parathyroidectomy Contact our clinic at the number listed above for any of the following concerns: Bleeding in Your Neck - Some bruising is normal but you should not have rapid or excess bruising and this may be owing to bleeding in your neck. If this is severe or you are panicked owing to troublebreathing, sudden swelling in your throat, or are unable to swallow, call 911 immediately. Low Calcium - If you develop numbness and tingling in your face, lips, fingertips, or toes take twoadditional doses of calcium carbonate (TUMS). The symptoms should go away in 15 to 30 minutes. If the symptoms persist, at 30 minutes you can repeat this. If the symptoms do still do not go away, call the ENT clinic. Infection - If you have a temperature above 100.4F by mouth for 2 readings taken 4 hours apart, increased redness and/or warmth at the incision site, puslike drainage, or pain not relieved by pain pills, there may be an infection in your neck. Please call your the ENT clinic. Care for the Surgical Site You may shower, but pat incision dry with a clean towel. Do NOT apply any ointment or lotion to the incision. Do NOT remove the surgical tape covering your incision. You will be provided with instructions on how to remove the tape gradually after your follow up appointment. documented in this encounter H&P Notes * Zane Lantigua MD - 02/01/2024 7:03 AM EST History & Physical - Otolaryngology [address] [address] Name: Beau Schmidt Location: [facility] Date: 02/01/2024 Time: 7:03 AM CC: Primary hyperparathyroidism HPI: The patient presents today for scheduled surgery. He denies any changes to health since last clinic visit. Denies recent illness. Denies use of aspirin, NSAIDs, or other anticoagulants. Medications: No current outpatient medications Medical History: Patient Active Problem List Diagnosis Tobacco use disorder Gastroesophageal reflux disease without esophagitis IgG Gliadin antibody positive Bloating Parathyroid adenoma Other osteoporosis without current pathological fracture Hyperparathyroidism, primary (HCC) Past Medical History: Diagnosis Date Fracture of ulna, open Gastric ulcer Gastroesophageal reflux disease without esophagitis 11/12/2014 Gluten intolerance 05/05/12 Gliadin IGA elevated Strep throat 03/13/11 Tobacco use disorder Past Surgical History: Procedure Laterality Date ABD / PELVIS CT WITH IV CONTRAST (NO PO) 09/20/2015 heterogenous material in bladder, no inflammatory process COLONOSCOPY WITH SUBMUCOSAL DISSECTION (ESD) N/A 01/26/2024 Colonoscopy with Submucosal Dissection (ESD) performed by Nanda Riggs MD at [facility] COLONOSCOPY, DIAGNOSTIC (RECTUM) 11/01/2023 biopsies show tubulovillous adenoma/COLONOSCOPY FLEXIBLE PROXIMAL DIAGNOSTIC performed by Jackie Ann MD at ENDOSCOPY [facility] EGD, FLEXIBLE, DIAGNOSTIC 11/01/2023 esophagogastric landmarks/biopsies normal/ESOPHAGOGASTRODUODENOSCOPY (EGD), FLEXIBLE, TRANSORAL, DIAGNOSTIC performed by Jackie Ann MD at ENDOSCOPY [facility] Review of patient's allergies indicates: No Known Allergies Social History Tobacco Use Smoking status: Every Day Current packs/day: 0.50 Average packs/day: 0.5 packs/day for 26.0 years (13.0 ttl pk-yrs) Types: Cigarettes Smokeless tobacco: Never Tobacco comments: age 16 Substance Use Topics Alcohol use: Not Currently Comment: quit 5 years ago ( 2017) Vaping/E-Cigarette Use Vaping/E-Cigarette Substances Vaping/E-Cigarette Devices Family History Problem Relation Name Age of Onset Diabetes Father Review of Systems: Negative unless otherwise indicated in HPI. Physical Exam: Vital Signs: BP: 115 mmHg/78 mmHg (02/01/24621) Pulse: 69 (02/01/24621) Resp: 17 (02/01/24621) Temp: 36.89 C (02/01/24621) Temp Summary: Temp Min: 36.9 C (98.4 F) Max: 36.9 C (98.4 F) SpO2: 97 % (02/01/24621) O2 flow rate: Supplemental O2 Delivery: Room Air, None (02/01/24621) No acute distress Regular rate and rhythm without murmur Lungs clear to auscultation bilaterally No hoarseness Impression: Beau Schmidt is a 53 year old male who presents with the above diagnosis for scheduled surgery. Plan: NPO SCDs No antibiotics Proceed with parathyroidectomy Zane Lantigua MD Otolaryngology Resident Cosigned by Elliot Marti DO at 02/01/2024 9:11 AM EST documented in this encounter Nursing Notes * Kira Kelly RN - 02/01/2024 11:30 AM EST Reviewed calcium and PTH results with Dr Lantigua who approved discharge to home * Kira Kelly RN - 02/01/2024 10:15 AM EST Dual Licensed Skin Assessment completed by madeline and Leticia GARCIA. The patient is/has a N/A Skin Breakdown (includes non blanchable erythema): Yes - Surgical/Procedural changes only. ' * Manuel Colvin RN - 02/01/2024 6:42 AM EST Dual Licensed Skin Assessment completed by RADHA Michel and RADHA Varma. The patient is/has a N/A Skin Breakdown (includes non blanchable erythema): No, small burn on right hand 2nd finger knuckle * Sylvain Kendall RN - 01/27/2024 3:10 PM EST NO ANESTHESIA EVAL REQUESTED PER CASE DOCUMENTATION. PREOP PATIENT INFORMATION AND EDUCATION: MEDICATION INSTRUCTIONS: The day of surgery/procedure, you may TAKE the following medications with a sip of water up to 2 hours prior to your arrival time: None STOP taking the following medications the noted number of days prior to surgery/procedure unless otherwise specified by your surgeon: Please follow surgeon's instructions regarding use of Aspirin, Coumadin, Plavix, Eliquis, and any other blood thinner including NSAIDs (non-steroidal anti- inflammatory drugs, eg, Advil, Ibuprofen, Motrin, Aleve, Naproxen); if you have any questions regarding your anticoagulation therapy please contact your surgeon's clinic. Please verify any proposed stoppage of your anticoagulation therapy with the agent's prescribing provider. 10 days prior to surgery/procedure Stop all Herbal supplements, Green Tea, Turmeric, Melatonin, CBD, THC, etc. Stop all Vitamins (including Vitamin E) 24 hours prior to surgery/procedure DO NOT consume any alcohol. DO NOT use medical marijuana. DO NOT smoke or use tobacco products of any kind after midnight prior to surgery. *Using any of these products may increase your risks of procedural complications. IF IT IS LESS THAN RECOMMENDED STOPPAGE TIME PLEASE STOP AT TIME OF NOTIFICATION. FASTING RECOMMENDATIONS: To reduce risk, it is important for all elective surgery patients to follow the specific fasting guidelines listed below. If you have received more stringent guidelines, please follow the MOST RESTRICTIVE guidelines that you have been provided. DO NOT EAT after midnight on the night prior to your surgery date. You are allowed to drink clear liquids up to two hours prior to arrival time to the hospital or surgery center. Examples of clear liquids include water, clear fruit juice without pulp, clear carbonated beverages, clear tea, and black coffee. Any drinks given by your surgical service take as directed. /pediatric patients who currently drink breast milk, infant formula, and non-human milk must not eat after midnight. These patients are allowed to drink only the liquids listed below up to two hours prior to arrival time to the hospital or surgery center: Ingested Material Minimum Fasting Time Clear liquid After midnight up to 2 hours prior to arrival time Breast milk Up to 4 hours prior to arrival time Infant formula Up to 6 hours prior to arrival time Non-human milk Up to 6 hours prior to arrival time THE DAY BEFORE YOUR SURGERY: -Drink plenty of fluid the day before your surgery. Contact your surgeon's office if you develop any of the following within 2 weeks of surgery: A cold Infection Fever Shingles Chicken pox or exposure to chicken pox Open areas such as scrapes, cuts, munguia or other skin conditions Rashes GENERAL INSTRUCTIONS FOR PREPARING FOR SURGERY: BATHING INSTRUCTIONS: Bathe the evening prior to and the morning of surgery/procedure. Cleanse your body using ONLY anti-bacterial soap (eg, Dial, Safeguard) or any specific soap/cleansers and instructions provided by your surgeon (eg, Chlorhexidine). -You should brush your teeth the morning of surgery. Do NOT apply any lotions, powders, sprays, creams, oils, make-up, or deodorants after bathing. No hairspray, or nail guyanese on fingers or toes. Day of surgery/procedure do not use tampons. If you wear contacts wear your eyeglasses if available otherwise bring your contact supplies with you to remove them prior to your surgery/procedure. If you wear glasses or dentures, please bring cases in which you can store them during your surgery. Please remove all piercings and jewelry and leave them at home. Wear comfortable and loose clothing. -Please leave all valuables at home. -If you use a CPAP and are staying overnight, please bring your mask and tubing with you to the hospital. -If you use an assistive mobility device (walker, cane, etc), please label it with your name and bring to hospital. -An escort wrecker driver is required if you are being discharged the same day of the surgery. You should have a responsible adult over the age of 18 [address] you home. This person should be present with youin the hospital at the time of discharge and for the first 24 hours after the surgery to support your needs. If you are taking a taxi home, you must have your responsible republican accompany you in the taxi ride home at the time of discharge. OR times subject to change. Please check [employer] messages the day/evening before your surgery forany updates. PRE-OP: You will be taken to the pre-op area where your vital signs (blood pressure, pulse and temperature)will be taken. Any preparations that need to be done will be done there. When it is time for your surgery, you will be taken to the operating room. PARENTS OF PEDIATRIC PATIENTS WILL BE ALLOWED TO STAY WITH THEIR CHILDREN UNTIL THEY ARE ESCORTED TO THE OPERATING ROOM OUTPATIENT SURGERY PATIENTS: After your surgery you will be taken to the Same Day Surgery Unit when you are awake and will go home from there. You will get instructions about your home care before you leave. Arrange to have someone drive you home from the hospital. You may not drive for 24 hours after anesthesia. You must havean adult stay with you at home for 24 hours after your operation. This is very important. If you are not able to comply with these guidelines, your Short Stay surgery cannot be done. ADMISSION PATIENTS: After your stay in the recovery area, you will be taken to your room. Your family may visit you in your room based on current visitation policy. If a next day discharge is expected, it is important to make arrangements for a wrecker driver to take you home. Please be aware our visitation policies are subject to change Professionals, attendants, caregivers or family members are allowable visitors for patients with intellectual, developmental or cognitive disabilities, communication barriers or behavioral concerns. Because patients' and families' needs vary, they will be taken into account when applying visitation restrictions. [facility]: Contact # [phone] Directions to Surgical Suite in from the Jag Entrance The Surgical Waiting Room can be found in the [facility]. Enter through Main Lobby Entrance and the Waiting Room is directly in front of you. Proceed to check in and give them your name. Directions to Surgical Suite from the East Entrance Enter the East entrance and follow the hallway to the J elevator. Take the J elevator up to Level 1. Continue down the long hallway to the main [facility] Lobby. The Surgical Waiting Room will be on your Right. Proceed to check in and give them your Name. Directions to Surgical Suite from the Parking Garage Enter the [facility] lobby and proceed down the west to the left. At the end of the west, turn right. Continue down the long hallway to the main [facility] Lobby. The Surgical Waiting Room will be on your Right. Proceed to check in and give them your Name. Pre-operative chart review completed-instructions provided based on current medication list in [facility] Presurgery instructions sent to patient via [employer] message. documented in this encounter OR Notes * OR Surgeon - Elliot Marti DO - 02/01/2024 9:16 AM EST OPERATIVE RECORD [place], [place] [address] Beau Schmidt MR # [id number] OUTPATIENT LOCATION: [place] [facility] ([facility] Room 18) SERVICE: Otolaryngology - Head & Neck Surgery - Facial Plastic Surgery DATE OF PROCEDURE: 02/01/2024 9:16 AM PRE-OP DIAGNOSIS: Hyperparathyroidism POST-OP DIAGNOSIS: Same PROCEDURE: Parathyroid exploration SURGEON: Elliot Marti DO, CLIFF ASSISTANTS: Zane Lantigua MD ANESTHESIA: General endotracheal anesthesia OPERATIVE FINDINGS: see below DRAINS and/or PACKS: None ESTIMATED BLOOD LOSS: 5 ML FLUIDS: 1500mL URINE: 0mL SPECIMEN(s) OBTAINED and DISPOSITION: right descended superior parathyroid gland sent for frozen consistent with parathyroid adenoma INDICATIONS & HISTORY: 53 yo male with hyperparathyroidism DESCRIPTION OF OPERATION: A timeout was held and the patient was identified and the procedure verified. The patient was identified as Beau Schmidt and a formal time-out was held. With the patient in the supine position, general anesthesia was induced via an orally placed endotracheal tube with nerve integrity monitor leads. Bilateral lower extremity sequential compression device stockings were placed. Patient's neck was extended. The positioning of the endotracheal tube was verified after positioningwith a Glidescope. Patient was prepped and draped in the usual fashion for anterior neck surgery. Aperipheral preoperative blood draw was performed which reported a rapid parathyroid hormone level of 392. A low Maxwell incision was delineated on the neck. This was subsequently injected with 1% lidocaine with 1:100,000 epinephrine. It was then incised with a cold knife and the incision deepened using Bovie electrocautery. Superior and inferior subplatysmal flaps were then carefully elevated. Themidline raphe was identified. The right sternohyoid muscle was elevated and retracted laterally. The sternothyroid muscle on the right was then identified and carefully elevated off the thyroid capsule. The sternothyroid was not split as good exposure was obtained. The thyroid gland was carefully inspected and palpated. The parathyroid of interest was identified in a descended right superior position. This was carefully freed from the adjacent tissue and appeared consistent with a parathyroid adenoma. The right recurrent nerve was plastered to the parathyroid adenoma and was meticulously dissected off the gland with blunt dissection and the harmonic. The mass was sent for frozen section analysis which did report a parathyroid tissue, which was noted to be hypercellular by the pathologist.A 15- minute postexcision rapid parathyroid hormone level reported a level of 90. The wound was irrigated. Hemostasis was assured. The right recurrent nerve had a brisk stimulation at the end of the case. There was no significant bleeding during the case. Snow hemostatic agent was applied to the wound. The incision was then closed in a multilayered fashion using 3-0 Vicryl deeps, 5-0 monocryl suture for the subcuticular layer and Dermabond on the skin. A steri strip was placed. The patient was allowed to emerge from anesthesia and taken to the In and Out Care Unit in stable condition DISPOSITION: The patient was transferred to the In & Out Surgery. APPARENT INTRAOPERATIVE COMPLICATIONS: none PATIENT CONDITION: stable ATTESTATION: I performed the procedure Elliot Marti DO, [facility] Funeral Service Manager, Department of Otolaryngology-Head and Neck Surgery [facility], [place] 02/01/2024 9:23 AM cc: Professional Reimbursement and Compliance documented in this encounter Plan of Treatment Upcoming Encounters Date Type Department Care Team (Late st Contact Info) Description 02/08/2024 11:45 AM EST Office Visit Otolaryngology [facility] [address] [place] [address] Elliot Marti DO [address] [place] [address] 05/31/2024 11:00 AM EDT Office Visit Family [address] [phone] Sylvia Andino MD [address] [place] [address] [place] [address] Pending Results Name Type Priority Associated Diagnoses Date /Time SURGICAL PATHOLOGY Pathology Routine Hyperparathyroidism, primary (HCC) 02/01/2024 8:50 AM EST Scheduled Orders Name Type Priority Associated Diagnoses Order Schedule GLUCOSE METER, POINT OF CARE (COMMUNICATION ORDER) Point of Care Testing STAT Perform Now for 1 Occurrences starting 02/01/2024 until 02/01/2024 SURGICAL PATHOLOGY Pathology Routine Hyperparathyroidism , primary (HCC) Release Upon Ordering for 1 Occurrences starting 02/01/2024 Scheduled Procedures Name Priority Associated Diagnoses Date/Ti me PARATHYROIDECTOMY Hyperparathyroidism, primary (HCC) 02/01/2024 7:00 AM EST Health Maintenance Due Date Last [...] D LEVEL ONCE IN A LIFETIME-USE SMARTSET# [id number] Completed 06/28/2023 HPV (Gardasil) Vaccine Aged Out No lo nger eligible based on patient's age to complete this topic MENINGOCOCCAL (MENACTRA/MENVEO) Aged Out No longer eligible b ased on patient's age to complete this topic documented as of this encounter Medical Devices Not on filedocumented as of this encounter Procedures Procedure Name Priority Date/Time Associated Diagnosis Comments PTH STAT 02/01/2024 10:17 AM EST CALCIUM STAT 02/01/2024 10:17 AM EST PTH, INTRAOPERATIVE ([facility] ONLY) Routine 02/01/2024 9:07 AM EST Hyperparathyroidis m, primary (HCC) PTH, INTRAOPERATIVE ([facility] ONLY) Routine 02/01/2024 7:48 AM EST Hyperparathyroidis m, primary (HCC) GLUCOSE METER, POINT OF CARE HUNTER 02/01/2024 6:30 AM EST GLUCOSE METER, POINT OF CARE HUNTER 01/26/2024 10:56 AM EST documented in this encounter Results * CALCIUM (02/01/2024 10:17 AM EST) CALCIUM 9.4 8.4 - 10.2 mg/dL 02/01/2024 10:46 AM EST LABORATORY [facility] Blood Venous blood specimen / Unknown Venipuncture / Unknown 02/01/2024 10:17 AM EST 02/01/2024 10:26 AM EST Zane Lantigua MD LAB BLOOD ORDERABLES Final Result Performing Organization Address [facility]/ZIP Co de [place] [address] * PTH (02/01/2024 10:17 AM EST) Pathologist [facility] PTH 19 15 - 65 pg/mL 02/01/2024 11:18 AM EST LABORATORY [facility] Blood Venous blood specimen / Unknown Venipuncture / Unknown 02/01/2024 10:17 AM EST 02/01/2024 10:26 AM EST Zane Lantigua MD LAB BLOOD ORDERABLES Final Result Performing Organization Address [facility] Co de [place] [address] * (ABNORMAL) PTH, INTRAOPERATIVE ([facility] ONLY) (02/01/2024 9:07 AM EST) PTH, Intraoperative 90(H) 10 - 65 pg/mL 02/01/2024 9:18 AM EST LABORATORY [facility] Comment:Told OR18 at 0918 Blood Venous blood specimen / Unknown Venipuncture / Unknown 02/01/2024 9:07 AM EST 02/01/2024 9:09 AM EST Elliot Marti DO LAB BLOOD ORDERABLES Final Result Performing Organization Address City/[facility] Co de Phone Number LABORATORY [facility] [address] [place] [address] * (ABNORMAL) PTH, INTRAOPERATIVE ([facility]) (02/01/2024 7:48 AM EST) PTH, Intraoperative 392(H) 10 - 65 pg/mL 02/01/2024 8:31 AM EST LABORATORY [facility] Comment:Told OR18 at 0831 Blood Venous blood specimen / Unknown Venipuncture / Unknown 02/01/2024 7:48 AM EST 02/01/2024 8:22 AM EST Elliot Marti DO LAB BLOOD ORDERABLES Final Result Performing Organization Address [facility] Co de Phone Number [facility] [address] [place] [address] * GLUCOSE METER, POINT OF CARE (02/01/2024 6:30 AM EST) Pathologist [facility] GLUCOSE - POCT 109 70 - 120 mg/dL 02/01/2024 6:48 AM EST [employer] [facility] Blood Whole blood specimen / Unknown 02/01/2024 6:30 AM EST 02/01/2024 6:48 AM EST Elliot Marti DO LAB POINT OF CARE T EST DOCKED DEVICE UNSOLICITED RESULTS Final Result Performing Organization Address [facility] Co de Phone Number [facility] [address] [place] [address] * GLUCOSE METER, POINT OF CARE (01/26/2024 10:56 AM EST) GLUCOSE - POCT 104 70 - 120 mg/dL 01/26/2024 10:58 AM EST [facility] Blood Whole blood specimen / Unknown 01/26/2024 10:56 AM EST 01/26/2024 10:58 AM EST Elliot Marti DO LAB POINT OF CARE T EST DOCKED DEVICE UNSOLICITED RESULTS Final Result [facility] [address] [place] [address] documented in this encounter Visit Diagnoses Diagnosis Hyperparathyroidism, primary (HCC)- Primary Primary hyperparathyroidism documented in this encounter Administered Medications Inactive Administered Medications - up to 3 most recent administrations Medication Order MAR Action Action Date Dose Rate Site fentaNYL (PF) inj 25 mcg 25 mcg, IV Push, Q5 MIN PRN Pain, Moderate, Pain, Severe, Starting on Wed02/01/24 at 0918, Until Wed02/01/24 at 1541, For 4 doses, Administer up to a total of 100 mcg. Administer only postop in PACU When given IV Push its recommended that the dose be given over 3 to 5 minutes., PACU Haloperidol Lactate (Haldol) 5 MG/ML inj 1 mg 1 mg, IV Push, ONCE PRN Other, nausea, vomiting, Starting on Wed02/01/24 at 0919, Until Wed02/01/24 at 1541, For 1 dose, PACU Isolyte-S pH 7.4 infusion Intravenous, at 25 mL/hr, All Patients EXCEPT Dialysis patients Plasma-LYTE 148, isolyte-S, and isolyte-S pH 7.4 are considered equivalent - including for MAR barcode scanning., CONTINUOUS, Starting on Wed02/01/24 at 0645, Until Wed02/01/24 at 1541, Pre-Op lidocaine 1 % inj 1 mg 1 mg (0.1 mL), Percutaneous, ONCE PRN Other, Difficult IV starts requiring > 20 guage catheter and/ or by patient request, Starting on Wed02/01/24 at 0610, Until Wed02/01/24 at 1541, For 1 dose, Pre-Op oxygen GAS Inhalation, OXYGEN, First dose on Wed02/01/24 at 1000, Until Discontinued, Device/Managed by: Low Flow Device, Goal SPO2 (%): 91-95, Starting Device: Nasal Cannula, Initial Flow Rate (LPM): 2, Lowest Support: Nasal Cannula: Flow 0-6 LPM. Titrate up/down by 1 LPM., Higher Support: Non-Rebreather (NRB) Mask: Minimum of 10 LPM. Titrate to maintain bag inflation., Titration Interval: Q2 minutes and as needed., Notify Provider: Other, Notify Provider [other]: If SpO2 less than 88% or NOT maintaining SpO2 greater than 92% notify physician immediately., Until awake OR SpO2 greater than 95% for 15 minutes, then Titrate O2 flow rate down to maintain SpO2 greater than 92% If SpO2 is less than 88% place patient on NRB mask at 10 LPM documented in this encounter Active and Recently Administered Medications Times are shown in EST. Scheduled Medication Order 01/30/2024 01/31/2024 02/01/2024 oxygen GAS Inhalation, OXYGEN, First dose on Wed02/01/24 at 1000, Until Discontinued, Device/Managed by: Low Flow Device, Goal SPO2 (%): 91-95, Starting Device: Nasal Cannula, Initial Flow Rate (LPM): 2, Lowest Support: Nasal Cannula: Flow 0-6 LPM. Titrate up/down by 1 LPM., Higher Support: Non-Rebreather (NRB) Mask: Minimum of 10 LPM. Titrate to maintain bag inflation., Titration Interval: Q2 minutes and as needed., Notify Provider: Other, Notify Provider [other]: If SpO2 less than 88% or NOT maintaining SpO2 greater than 92% notify physician immediately., Until awake OR SpO2 greater than 95% for 15 minutes, then Titrate O2 flow rate down to maintain SpO2 greater than 92% If SpO2 is less than 88% place patient on NRB mask at 10 LPM 1000 (Due) Continuous Medication Order 01/30/2024 01/31/2024 02/01/2024 Isolyte-S pH 7.4 infusion Intravenous, at 25 mL/hr, All Patients EXCEPT Dialysis patients Plasma-LYTE 148, isolyte-S, and isolyte-S pH 7.4 are considered equivalent - including for MAR barcode scanning., CONTINUOUS, Starting on Wed02/01/24 at 0645, Until Wed02/01/24 at 1541, Pre-Op 0645 (Due) PRN Medication Order 01/30/2024 01/31/2024 02/01/2024 EPINEPHrine 2 mg in sodium chloride 0.9 % 10 mL (CANCELED) ONCE PRN INTRA PROCEDURE, Starting on Wed02/01/24 at 0827, Until Wed02/01/24 at 0950, Intra-Op 0827 (Given - Provid er: Elliot Levy Harlor, DO - Comment: PRN to cottonoids) fentaNYL (PF) inj 25 mcg 25 mcg, IV Push, Q5 MIN PRN Pain, Moderate, Pain, Severe, Starting on Wed02/01/24 at 0918, Until Wed02/01/24 at 1541, For 4 doses, Administer up to a total of 100 mcg. Administer only postop in PACU When given IV Push its recommended that the dose be given over 3 to 5 minutes., PACU Haloperidol Lactate (Haldol) 5 MG/ML inj 1 mg 1 mg, IV Push, ONCE PRN Other, nausea, vomiting, Starting on Wed02/01/24 at 0919, Until Wed02/01/24 at 1541, For 1 dose, PACU lidocaine 1 % inj 1 mg 1 mg (0.1 mL), Percutaneous, ONCE PRN Other, Difficult IV starts requiring > 20 guage catheter and/ or by patient request, Starting on Wed02/01/24 at 0610, Until Wed02/01/24 at 1541, For 1 dose, Pre-Op Lidocaine-EPINEPHrine 1 %-1:[id number] inj (CANCELED) ONCE PRN INTRA PROCEDURE, Starting on Wed02/01/24 at 0827, Until Wed02/01/24 at 0950, Intra-Op 0827 (Given - Provid er: Elliot Marti DO) sodium chloride IR 0.9 % irrigation (CANCELED) ONCE PRN INTRA PROCEDURE, Starting on Wed02/01/24 at 0828, Until Wed02/01/24 at 0950, Intra-Op 0828 (Given - Provid er: Elliot Marti DO) documented in this encounter Care Teams Supervisor Major Appliance Assembly Relationship Specialty Start Date End Date Sylvia Andino MD [address] [place] [address] [place] [phone] PCP - General Family Medicine 05/26/23 documented as of this encounter
--- OUTSIDE RECORDS SUMMARY | 2024-02-10 08:52 | External Medical Summary | Summary of Care ---
Author Name Unknown Organization [facility] Address [address] [place] [address] Phone [phone] Care Team Providers Care Landscape Maintenance Internship Name Role Phone Sylvia Andino MD Primary Care Prov ider Encounter Details Date Type Department Care Team (Late st Contact Info) Description 12/13/2023 Telephone Endocrinology, [place] [address], [place] [phone] Liam Kimble MD [address] [place], [place] [phone] Allergies No known active allergiesdocumented as of this encounter (statuses as of 12/20/2023) Medications No known medicationsdocumented as of this encounter (statuses as of 12/20/2023) Active Problems Problem Noted Date Diagnosed Date Hyperparathyroidism, primary 12/14/2023 Parathyroid adenoma 12/07/2023 Other osteoporosis without current pathological fracture 12/07/2023 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 Tobacco use disorder documented as of this encounter (statuses as of 12/20/2023) Immunizations Name Administration Dates Next Due Pneumococcal [...] Assigned at Male 05/19/2023 10:16 AM EDT Gender Identity Male 05/19/2023 10:16 AM EDT Sexual Orientation Grant 05/19/2023 10 :28 AM EDT Job Start Date Occupation Industry Not on file Not on file Not on file documented as of this encounter Miscellaneous Notes * Telephone Encounter - Carmina De La Cruz LPN - 12/13/2023 7:46 AM EDT Pt with severe osteoporosis and will be undergoing parathyroid surgery soon. I will like to start him on once yearly IV Reclast atleast for 2 infusions post parathyroidectomy. We can tentatively schedule him in about 3 months from now ( anticipating that his parathyroid surgery will be done by then) Reminder placed for 3 months from today to ensure pt is scheduled post parathyroidectomy' Carmina De La Cruz LPN 12/13/2023 7:49 AM documented in this encounter Plan of Treatment Upcoming Encounters Date Type Department Care Team (Latest Contact Info) Description 01/26/2024 9:48 AM EST Hospital Encounter OR [facility], Operating Room, [facility] - 4th Floor [address] [place] [phone] Nanda Riggs MD [address] [place] [address] 01/26/2024 9:48 AM EST - 01/26/2024 11:48 AM EST Surgery OR [facility], Operating Room, [facility] - 4th Floor [address] [place] [phone] Nanda Riggs MD [address] [place] [address] COLONOSCOPY, FLEXIBLE; WITH ENDOSCOPIC MUCOSAL RESECTION 02/01/2024 7:30 AM EST Hospital Encounter [place] [facility] OPER[place] ROOM [facility] [address] [facility] [place] [phone] Elliot Marti, DO [address] [place] [address] 02/01/2024 7:30 AM EST - 02/01/2024 10:12 AM EST Surgery OR [facility] OPER[place] ROOM [facility] [address] [facility] [place], [place] [phone] Elliot Marti, DO [address] [place] [address] PARATHYROIDECTOMY 02/08/2024 11:45 AM EST Office Visit Otolaryngology [facility] [address] [place] [address] Elliot Marti, DO [address] [place] [address] 05/31/2024 11:00 AM EDT Office Visit Family Medicine [address] [place] [phone] Sylvia Andino MD [address] [place] [address] [place] [phone] Scheduled Orders Name Type Priority Associated Diagnoses Orde r Schedule BASIC METABOLIC PANEL Lab Routine Other osteoporosis without current pathological fracture Expected: 12/14/2023 (Approximate), Expires: 12/13/2024 25-HYDROXY VITAMIN D Lab Routine Other osteoporosis without current pathological fracture Expected: 12/14/2023 (Approximate), Expires: 12/13/2024 Scheduled Procedures Name Priority Associated Diagnoses Date/Ti me COLONOSCOPY, FLEXIBLE; WITH ENDOSCOPIC MUCOSAL RESECTION Colon polyp 01/26/2024 9:48 AM EST PARATHYROIDECTOMY Hyperparathyroidism, primary (HCC) 02/01/2024 7:30 AM [...] o r Tdap) 05/25/2033 05/26/2023, 03/13/2011 Colonoscopy 10/31/2033 11/01/2023, 11/01/2023 Colorectal Cancer Screening 10/31/2033 VITAMIN D LEVEL ONCE IN A LIFETIME-USE SMARTSET# [id number] Completed 06/28/2023 HPV (Gardasil) Vaccine Aged Out No lo nger eligible based on patient's age to complete this topic MENINGOCOCCAL (MENACTRA/MENVEO) Aged Out No longer eligible b ased on patient's age to complete this topic documented as of this encounter Medical Devices Not on filedocumented as of this encounter Visit Diagnoses Diagnosis Other osteoporosis without current pathological fracture- Primary Colon polyp Benign neoplasm of colon Hyperparathyroidism, primary (HCC) Primary hyperparathyroidism documented in this encounter Care Teams Landscape Maintenance Internship Relationship Specialty Start Date End Date Sylvia Andino MD [address] [place] [address] [place] [phone] PCP - General Family Medicine 05/26/23 documented as of this encounter
--- OUTSIDE RECORDS SUMMARY | 2024-02-10 08:52 | External Medical Summary ---
Author Name Unknown Address Unknown Organization : Laboratory Report Ordering Provider Test Date Status LATHA PATEL 01/26/2024 07:40:53 Final Observation Date Value Abnormality Reference (Units ) Status Glucose Point of Care 01/26/2024 07:40:53 95 70-120 (mg/dL) Final Performing Location
--- OUTSIDE RECORDS SUMMARY | 2024-02-10 08:52 | External Medical Summary | Summary of Care ---
Author Name Unknown Organization [facility] Address [address] [facility] [address] Phone [phone] Care Team Providers Care Wader Boot Top Assembler Name Role Phone Sylvia Andino MD Primary Care Prov ider Reason for Visit * Reason Onset Date Comments Advice 2024 Encounter Details Date Type Department Care Team (Late st Contact Info) Description 2024 Telephone Otolaryngology [facility] [address] [place] [address] Elliot Marti DO [address] [place] [address] Advice Allergies No known active allergiesdocumented as of this encounter (statuses as of 2024) Medications oxyCODONE HCl 5 MG Oral Tablet (Oxy IR) Take 1 Tablet by mouth every 4 hours as needed for Pain, Severe. 11 Tablet 02/01/2024 Active documented as of this encounter (statuses as of 2024) Active Problems Problem Noted Date Diagnosed Date Hyperparathyroidism, primary 12/14/2023 Parathyroid adenoma 12/07/2023 Other osteoporosis without current pathological fracture 12/07/2023 IgG Gliadin antibody positive 05/26/2023 Bloating 05/26/2023 Gastroesophageal reflux disease without esophagi tis 11/12/2014 Tobacco use disorder documented as of this encounter (statuses as of 2024) Resolved Problems Problem Noted Date Diagnosed Date Resolved Date ADVANCE DIRECTIVE INFORMATION 02/09/2005 12/27/2023 Overview (02/09/2005): No, Advance Directive brochure given to patient. 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 He klelie colace. He has only ate one time since surgery- scrambled eggs. He has sensation of fullness. Hehas been burping not passing gas. Spoke to Dr. Marti he advised to follow what he is doing and can add reflux medication if needed. Anesthesia can slow down the GI system some. Patient verbalized understanding. documented in this encounter Plan of Treatment Upcoming Encounters Date Type Department Care Team (Late st Contact Info) Description 02/08/2024 11:45 AM EST Office Visit Otolaryngology [address] [place] [address] Elliot Marti, DO [address] [place] [address] 05/31/2024 11:00 AM EDT Office Visit Family Medicine [address] [place] [phone] Sylvia Andino MD [address] [place] [address] [place] [phone] Health Maintenance Due Date Last Done Comments [...] D LEVEL ONCE IN A LIFETIME-USE SMARTSET# [id number] Completed 06/28/2023 HPV (Gardasil) Vaccine Aged Out No lo nger eligible based on patient's age to complete this topic MENINGOCOCCAL (MENACTRA/MENVEO) Aged Out No longer eligible b ased on patient's age to complete this topic documented as of this encounter Medical Devices Not on filedocumented as of this encounter Care Teams Wader Boot Top Assembler Relationship Specialty Start Date End Date Sylvia Andino MD [address] [place] [address] [place] [phone] PCP - General Family Medicine 05/26/23 documented as of this encounter
--- OUTSIDE RECORDS SUMMARY | 2024-02-10 08:52 | External Medical Summary | Summary of Care ---
Author Name Unknown Organization [facility] Address [address] [place] [address] Phone [phone] Care Team Providers Care Software Verification Engineer Name Role Phone Sylvia Andino MD Primary Care Prov ider Encounter Details Date Type Department Care Team (Late st Contact Info) Description 12/13/2023 Telephone Endocrinology, [place] [address] [place], [place] [phone] Liam Kimble MD [address] [place], [place] [phone] Allergies No known active allergiesdocumented as of this encounter (statuses as of 12/21/2023) Medications No known medicationsdocumented as of this encounter (statuses as of 12/21/2023) Active Problems Problem Noted Date Diagnosed Date Hyperparathyroidism, primary 12/14/2023 Parathyroid adenoma 12/07/2023 Other osteoporosis without current pathological fracture 12/07/2023 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 Tobacco use disorder documented as of this encounter (statuses as of 12/21/2023) Immunizations Name Administration Dates Next Due Pneumococcal [...] - Carmina De La Cruz LPN - 12/21/2023 9:48 AM EDT Spoke to patient. He is aware he will be scheduled for Reclast infusion 6-8 weeks after 6-8 weeks after the parathyroid surgery. Surgery date 02/01/2024. Reminder placed to ensure he is scheduled 6-8 week after surgery. Carmina De La Cruz LPN 12/21/2023 9:50 AM * Telephone Encounter - Carmina De La [...] 01/26/2024 9:48 AM EST Hospital Encounter OR [facility], Operating Room, [facility] - 4th Floor [address] [place] [phone] Nanda Riggs MD [address] [place] [address] 01/26/2024 9:48 AM EST - 01/26/2024 11:48 AM EST Surgery OR [facility], Operating Room, [facility] - 4th Floor [address] [place] [facility] [phone] Nanda Riggs MD [address] [place] [address] COLONOSCOPY, FLEXIBLE; WITH ENDOSCOPIC MUCOSAL RESECTION 02/01/2024 7:30 AM EST Hospital Encounter OR [facility], OPERATING ROOM [facility] [address] [place] [facility] [place] [phone] Elliot Marti, [address] [place] [address] 02/01/2024 7:30 AM EST - 02/01/2024 10:12 AM EST Surgery OR [facility], OPERATING ROOM [facility] [address] [place] [facility] [place] [phone] Elliot Marti, [address] [place] [address] PARATHYROIDECTOMY 02/08/2024 11:45 AM EST Office Visit Otolaryngology [facility] [address] [place] [address] Elliot Marti, [address] [place] [address] 05/31/2024 11:00 AM EDT Office Visit Family Medicine [address] [place] [phone] Sylvia Andino MD [address] [place] [address] [place] [phone] Scheduled Orders Name Type Priority Associated Diagnoses [...] D LEVEL ONCE IN A LIFETIME-USE SMARTSET# [id number] Completed 06/28/2023 HPV (Gardasil) Vaccine Aged Out No lo nger eligible based on patient's age to complete this topic MENINGOCOCCAL (MENACTRA/MENVEO) Aged Out No longer eligible b ased on patient's age to complete this topic documented as of this encounter Medical Devices Not on filedocumented as of this encounter Visit Diagnoses Diagnosis Other osteoporosis without current pathological fracture- Primary Hyperparathyroidism, primary (HCC)- Primary Primary hyperparathyroidism Colon polyp Benign neoplasm of colon Hyperparathyroidism, primary (HCC) Primary hyperparathyroidism documented in this encounter Care Teams Software Verification Engineer Relationship Specialty Start Date End Date Sylvia Andino MD [address] [place] [address] [place] [phone] PCP - General Family Medicine 05/26/23 documented as of this encounter
--- OUTSIDE RECORDS SUMMARY | 2024-02-10 08:52 | External Medical Summary | Summary of Care ---
Author Name Unknown Organization [facility] Address [address] [place] [address] Phone [phone] Care Team Providers Care Ela Teacher Name Role Phone Sylvia Andino MD Primary Care Prov ider Reason for Visit * Reason Onset Date Comments Medication Pre-auth 12/14/2023 Reclast Encounter Details Date Type Department Care Team (Late st Contact Info) Description 12/14/2023 Telephone Hematology/Oncology Treatment, [place] [address] [place] [address] Liam Kimble MD [address] [place] [address] Medication Pre-auth (Reclast) Allergies No known active allergiesdocumented as of [...] encounter Miscellaneous Notes * Telephone Encounter - Dylan Hendricks RN - 12/20/2023 1:[address] Kimble routing comment: "Yes, okay to hold off on starting Reclast till parathyroid surgery is done on 02/01/2024 Start him on Reclast about 6-8 weeks after parathyroid surgery Proposed duration of use: 2 years Thanks " Will pend encounter until 02/01 and will plan for treatment 6-8 weeks after surgery if completed on01/31 as scheduled. * Telephone Encounter - Dylan Hendricks RN - 12/15/2023 3:56 PM EDT Per PFC review with patient: "Does patient want to be scheduled? (Y/N) YES, HOWEVER PATIENT STATES HE HAS TO HAVE HIS PARATHYROID REMOVED PRIOR TO RECLAST INFUSION. PROCEDURE SCHEDULED FOR 02/01/2024. " Dr. Kimble- daja, ok to wait until after surgery to schedule? * Telephone Encounter - Allison Metcalf RN - 12/14/2023 4:25 PM EDT Referral entered, waiting for PFC review. * Telephone Encounter - Ina Carrero LPN - 12/14/2023 12:54 PM EDT Order received for Reclast [place] plan built and routed to provider Awaiting provider signature, completed lab results, and prior authorization before scheduling patient. documented in this encounter Plan of Treatment Upcoming Encounters Date Type Department Care Team (Latest Contact Info) Description 01/26/2024 9:48 AM EST Hospital Encounter OR [facility], Operating Room, [facility] - 4th Floor [address] [facility] [phone] Nanda Riggs MD [address] [place] [address] 01/26/2024 9:48 AM EST - 01/26/2024 11:48 AM EST Surgery OR [facility], Operating Room, [facility] - 4th Floor [address] [place] [phone] Nanda Riggs MD [address] [place] [address] COLONOSCOPY, FLEXIBLE; WITH ENDOSCOPIC MUCOSAL RESECTION 02/01/2024 7:30 AM EST Hospital Encounter OR [facility], OPERATING ROOM [facility] [address] [facility] [place] [phone] Elliot Marti, [address] [place] [address] 02/01/2024 7:30 AM EST - 02/01/2024 10:12 AM EST Surgery OR [facility], OPERATING ROOM [facility] [address] [facility] [place] [phone] Elliot Marti, [address] [place] [address] PARATHYROIDECTOMY 02/08/2024 11:45 AM EST Office Visit Otolaryngology [facility] [address] [place] [address] Elliot Marti, [address] [place] [address] 05/31/2024 11:00 AM EDT Office Visit Family Medicine [address] [place] [phone] Sylvia Andino MD [address] [place] [address] [place] [address] Scheduled Procedures Name Priority Associated Diagnoses Date/Ti [...] D LEVEL ONCE IN A LIFETIME-USE SMARTSET# [id number] Completed 06/28/2023 HPV (Gardasil) Vaccine Aged Out No lo nger eligible based on patient's age to complete this topic MENINGOCOCCAL (MENACTRA/MENVEO) Aged Out No longer eligible b ased on patient's age to complete this topic documented as of this encounter Medical Devices Not on filedocumented as of this encounter Care Teams Ela Teacher Relationship Specialty Start Date End Date Sylvia Andino MD [address] [place] [address] [place] [phone] PCP - General Family Medicine 05/26/23 documented as of this encounter
--- OUTSIDE RECORDS SUMMARY | 2024-02-10 08:52 | External Medical Summary ---
Author Name Unknown Address Unknown Organization : Laboratory Report Ordering Provider Test Date Status JANIYA SAEED 01/26/2024 10:56:10 Final Observation Date Value Abnormality Reference (Units ) Status Glucose Point of Care 01/26/2024 10:56:10 104 70-120 (mg/dL) Final Performing Location
--- OUTSIDE RECORDS SUMMARY | 2024-02-10 08:52 | External Medical Summary | Summary of Care ---
Author Name Unknown Organization [facility] Address [address] [place] [address] Phone [phone] Care Team Providers Care Piano Mechanic Name Role Phone Sylvia Andino MD Primary Care Prov ider Reason for Visit * Auth/Cert Specialty Diagnoses / Procedures Referred By Contkristie t Referred To Contact Diagnoses Colon polyp Colon polyp [K63.5] Procedures COLONOSCOPY, FLEX, W/ ENDOSCOPIC MUCOSAL RESECTION COLONOSCOPY, FLEXIBLE; WITH ENDOSCOPIC MUCOSAL RESECTION Nanda Riggs MD [address] [place] [address] Phone: tel: fax: [facility] [address] [place] [address] Phone: tel: Referral ID Status Reason Start Date Expiration Date Visits Re quested Visits Authorized [id number] Encounter Details Date Type Department Care Team (Latest Contact Info) Description 01/26/2024 7:20 AM EST - 01/26/2024 12:13 PM EST Hospital Encounter OR [facility], Operating Room, [facility] - 4th Floor [address] [facility] [place] [address] Nanda Riggs MD [address] [place] [address] Colonoscopy Discharge Disposition: Home - Self Care Allergies [...] No 05/19/2023 Does the household have a [facility] source of income? 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 Not on file Not on fi le documented as of this encounter Last Filed Vital Signs Vital Sign Reading Time Taken Comments Blood Pressure 107/73 01/26/2024 11:58 AM EST Pulse 59 01/26/2024 11:58 AM EST Temperature 36.3 C (97.3 F) 01/26/2024 11:[address] Respiratory Rate 16 01/26/2024 11:58 AM EST Oxygen Saturation 94% 01/26/2024 11:58 AM EST Inhaled Oxygen Concentration - - Weight 69.4 kg (153 lb) 01/26/2024 7:32 AM EST Height 170.2 cm (5' 7") 01/26/2024 7:32 AM EST Body Mass Index 23.96 01/26/2024 7:32 AM EST documented in this encounter H&P Notes * Nanda Riggs MD - 01/26/2024 8:37 AM EST Endoscopy Pre-Procedure Assessment Name: Beau Schmidt Date: 01/26/2024 Time: 8:37 AM Procedure(s): Colonoscopy; with Indication(s) of resection of colon polyp Endoscopy Pre-Procedure Assessment: Prior to the procedure, the patient was identified. The patient's history, medications and allergies were reviewed as per the Anesthesia Assessment. The patient is competent. The risks and benefits of the proposed procedure and the planned sedation were discussed with the patient. All questions were answered and informed consent for the procedure was obtained. BP 131/90 | Pulse 66 | Temp 36.3 C (97.3 F) (Temporal Artery) | Resp 18 | Ht 1.702 m (5' 7") | Wt 69.4 kg (153 lb) | SpO2 98% | BMI 23.96 kg/m | BSA 1.81 m Review of patient's allergies indicates: No Known Allergies Prior to Admission medications Not on File Physical Exam: Mental Status Examination: alert and oriented. Airway Examination: normal oropharyngeal airway and neck mobility. Respiratory Examination: clear to auscultation. CV Examination: Regular rate and rythm, no murmurs. ASA Grade: II - A patient with mild systemic disease. After reviewing the risks and benefits, the patient was deemed in satisfactory condition to undergothe procedure. The anesthesia plan was to use general anesthesia. Patient was explained in detail regarding risks, benefits, limitations and alternatives of the above endoscopic procedure. Risks of intravenous sedation used for procedure were also explained. Risks include, but not limited to perforation, bleeding, infection, respiratory distress, cardiac arrest and . Risk of acute pancreatitis and necrosis if ERCP is done. Patient is also aware about the possibility of missed lesion. Patient's questions were answered. The patient verbalized understandingthe information and agreed to undergo the procedure. Discussed with the patient that he/she is at an explicit higher risk for complications in comparison to other patients Patient with a complex colon polyp requiring endoscopic resection, utilizing any of the potential modalities of EMR, ESD or FTRD. The proposed procedure was discussed in detail with the patient and family. All feasible options were reviewed with the appropriate indications and expected outcomes. While the usual outcome of elective endoscopic polyp resection is an uncomplicated procedure, advancedpolypectomy is not without risk to the patient. This procedure is considered of a significantly higher risk of complications. The technique of EMR, ESD and FTRD was discussed. The benefit of the procedure is to remove the polyp which otherwise could potentially turn into invasive malignancy. The alternative options including to not perfrom the procedure were discussed. The option of referral to surgery with segmental, love or total coloctomy with or without need for colostomy was discussed. The risks including but not limited to: Immediate and delayed perforation requiring repeat endoscopy, urgent or nonurgent surgical intervention with colonic resection and creation of a colostomy and need for multiple surgical interventions, immediate and delayed bleeding causing hemodynamic instability requiring blood transfusion or consulting with IR for embolization, infections, postpolypectomysyndrome, leakage requiring IR drain placement, admission to the hospital, recurrence of the polyp (non-therapeutic procedure), chronic pain syndromes and problems associated with perforation causingpneumoperitoneum such as shoulder pain, pneumothorax, hypercarbia or air embolis. After thorough consideration of the above, the patient and/or the appropriate legal circulation representative gave written and verbal informed consent to the procedure. Nanda Riggs MD 01/26/2024 documented in this encounter Procedure Notes * Sylvia Andino MD - 01/26/2024 8:37 AM ESTAssociated Order(s): COLONOSCOPY [facility] Patient Name: Beau Schmidt Procedure Date: 01/26/2024 8:37 AM Date of : 1970 Admit Type: Outpatient Note Status: Finalized Date of : 1970 Admit Type: Outpatient Age: 53 Room: OR 5 Gender: Male Note Status: Finalized Procedure: Colonoscopy Indications: Therapeutic procedure for colon polyps Providers: Nanda Riggs MD (Doctor), Didi Espinosa RN Referring MD: Sylvia Martinez, Jackie Ann MD Medicines: General Anesthesia Complications: No immediate complications. Procedure: Pre-Anesthesia Assessment: - Prior to the procedure, a History and Physical was performed, and patient medications, allergies and sensitivities were reviewed. The patient's tolerance of previous anesthesia was reviewed. - The risks and benefits of the procedure and the sedation options and risks were discussed with the patient. All questions were answered and informed consent was obtained. - Patient identification and proposed procedure were verified prior to the procedure by the physician and the nurse. The procedure was verified in the procedure room. - Pre-procedure physical examination revealed no contraindications to sedation. After I obtained informed consent, the scope was passed under direct vision. All instruments were visually inspected immediately before and after removal from the patient to ensure they are fully intact. Throughout the procedure, the patient's blood pressure, pulse, and oxygen saturations were monitored continuously. The was introduced through the anus and advanced to the sigmoid colon to examine a mass. This was the intended extent. The colonoscopy was performed without difficulty. The patient tolerated the procedure well. The quality of the bowel preparation was good. Findings & Specimens: A greater than 50 mm polyp was found in the recto-sigmoid colon at 12 cm proximal to the anus. The polyp was multi-lobulated, Daniella classification Is (protruding, sessile), Daniella classification IIa (superficial, elevated) and mixed lateral spreading and and found to be Kudo Pit Pattern Type IV (as viewed with Narrow Band Imaging). Preparations were made for endoscopic submucosal dissection. Chromoscopy with indigo carmine using irrigation chromoendoscopy technique was done to rachana the borders of the lesion. Demarcation of the lesion was performed to clearly identify boundaries of the lesion. 50 mL of a 1:40,000 solution of epinephrine with indigo carmine was injected with adequate lift of the lesion from the muscularis propria. A circumferential incision around the lesion into the submucosawas performed with a Hybrid Flex knife. The lesion was then dissected from the underlying deep layers with the electrocautery knife and retrieved with a snare. Resection and retrieval were complete. Verification of patient identification for the specimen was done by the physician and nurse using the patient's name and date. The pathology specimen was placed into Bottle A. There was an area of adherence to the MP in the center of the lesion, likely fibrosis however this was resected full thickness with a snare and cap technique. The pathology specimen was placed into Bottle B. The decision was made to use sutures to close a defect after mucosal resection. The endoscope was removed, the OverStitch device was attached to the proximal and distal ends of the endoscope. The scope was reinserted. The device was loaded with 2.0 polypropylene suture. A total of one sutures in a running fashion were placed with cinches on both ends. Excellent tissue approximation was noted. Area was tattooed with an injection of 1 mL of Spot (carbon black). Impression: - One 70 mm polyp at the recto-sigmoid colon at 12 cm proximal to the anus, removed with endoscopic submucosal dissection. Resected and retrieved. Endoscopic suturing performed. Tattooed. Recommendation: - Discharge patient to home. - Await pathology results. - Repeat colonoscopy for surveillance based on pathology results. - Soft diet for 3 days. - No aspirin, ibuprofen, naproxen, or other non-steroidal anti-inflammatory drugs for 5 days. - Colace capsule(s) orally BID for 2 weeks. - Return to referring physician. Nanda Riggs MD 01/26/2024 11:26:27 AM This report has been signed electronically. Estimated Blood Loss: Estimated blood loss: none. documented in this encounter Nursing Notes * Mary Green RN - 01/26/2024 11:06 AM EST Colonoscopy with ESD completed in [facility] OR5. Pt ji procedure well. Sedated by LOG CHIPPER. See anesthesia record for VS and medications given. Abd soft. Airway patent. Pt to recovery on L side with HOB elevated. Report to recovery room nurse. Bedside cleaning done. documented in this encounter Plan of Treatment Upcoming Encounters Date Type Department Care Team (Latest Contact Info) Description 02/01/2024 7:30 AM EST Hospital Encounter OR [facility], OPERATING ROOM [facility], [facility] [address] [place] [facility] [place] [address] Elliot Marti, DO [address] [place] [address] 02/01/2024 7:30 AM EST - 02/01/2024 10:12 AM EST Surgery OR [facility], OPERATING ROOM [facility], [facility] [address] [facility] [place] [address] Elliot Marti, DO [address] [place] [address] PARATHYROIDECTOMY 02/08/2024 11:45 AM EST Office Visit Otolaryngology [facility] [address] [place] [address] Elliot Marti, [address] [place] [address] 05/31/2024 11:00 AM EDT Office Visit Family Medicine [address] [phone] Sylvia Andino MD [address] [place] [address] [place] [address] Pending Results Name Type Priority Associated Diagnoses Date /Time SURGICAL PATHOLOGY Pathology Routine 2023 10:48 AM EST Scheduled Orders Name Type Priority Associated Diagnoses Order Schedule GLUCOSE METER, POINT OF CARE (COMMUNICATION ORDER) Point of Care Testing STAT Perform Now for 1 Occurrences starting 01/26/2024 until 01/26/2024 SURGICAL PATHOLOGY Pathology Routine One Ti me for 1 Occurrences starting 01/26/2024 until 01/26/2024, 1 completed Scheduled Procedures Name Priority Associated Diagnoses Date/Ti [...] D LEVEL ONCE IN A LIFETIME-USE SMARTSET# [id number] Completed 06/28/2023 HPV (Gardasil) Vaccine Aged Out No lo nger eligible based on patient's age to complete this topic MENINGOCOCCAL (MENACTRA/MENVEO) Aged Out No longer eligible b ased on patient's age to complete this topic documented as of this encounter Medical Devices Not on filedocumented as of this encounter Procedures Procedure Name Priority Date/Time Associated Diagnosis Comments COLONOSCOPY 01/26/2024 8:37 AM EST GLUCOSE METER, POINT OF CARE HUNTER 01/26/2024 7:40 AM EST documented in this encounter Results * COLONOSCOPY (01/26/2024 8:37 AM EST) 01/26/2024 8:37 AM EST Narrative Procedure Note Sylvia Andino MD - 01/26/2024 8:37 AM EST [facility] Patient Name: Beau Schmidt Procedure Date: 01/26/2024 8:37 AM Date of : 1970 Admit Type: Outpatient Note Status:Finalized Date of : 1970 Admit Type: Outpatient Age: 53 Room: OR 5 Gender: Male Note Status: Finalized Procedure: Colonoscopy Indications: Therapeutic procedure for colon polyps Providers: Nanda Riggs MD (Doctor), Didi Espinosa RN Referring MD: Sylvia Martinez, Jackie Ann MD Medicines: General Anesthesia Complications: No immediate complications. Procedure: Pre-Anesthesia Assessment: - Prior to the procedure, a History and Physicalwas performed, and patient medications, allergies and sensitivities werereviewed. The patient's tolerance of previous anesthesia was reviewed. - The risks and benefits of the procedure and thesedation options and risks were discussed with the patient. All questions wereanswered and informed consent was obtained. - Patient identification and proposed procedurewere verified prior to the procedure by the physician and the nurse. The procedure wasverified in the procedure room. - Pre-procedure physical examination revealed nocontraindications to sedation. After I obtained informed consent, the scope waspassed under direct vision. All instruments were visually inspected immediatelybefore and after removal from the patient to ensure they are fully intact. Throughout the procedure, the patient's bloodpressure, pulse, and oxygen saturations were monitored continuously. The was introducedthrough the anus and advanced to the sigmoid colon to examine a mass. This was theintended extent. The colonoscopy was performed without difficulty. The patient toleratedthe procedure well. The quality of the bowel preparation was good. Findings & Specimens: A greater than 50 mm polyp was found in the recto-sigmoid colon at 12cm proximal to the anus. The polyp was multi-lobulated, Daniella classification Is (protruding,sessile), Daniella classification IIa (superficial, elevated) and mixed lateral spreading and and found sumaya Kudo Pit Pattern Type IV (as viewed with Narrow Band Imaging). Preparations were made forendoscopic submucosal dissection. Chromoscopy with indigo carmine using irrigation chromoendoscopytechnique was done to rachana the borders of the lesion. Demarcation of the lesion was performed to clearlyidentify boundaries of the lesion. 50 mL of a 1:40,000 solution of epinephrine with indigo carmine wasinjected with adequate lift of the lesion from the muscularis propria. A circumferential incision aroundthe lesion into the submucosa was performed with a Hybrid Flex knife. The lesion was then dissectedfrom the underlying deep layers with the electrocautery knife and retrieved with a snare. Resection andretrieval were complete. Verification of patient identification for the specimen was done bythe physician and nurse using the patient's name and date. The pathology specimen was placed intoBottle A. There was an area of adherence to the MP in the center of the lesion, likely fibrosishowever this was resected full thickness with a snare and cap technique. The pathology specimen wasplaced into Bottle B. The decision was made to use sutures to close a defect after mucosal resection.The endoscope was removed, the OverStitch device was attached to the proximal and distal ends of theendoscope. The scope was reinserted. The device was loaded with 2.0 polypropylene suture. Atotal of one sutures in a running fashion were placed with cinches on both ends. Excellent tissueapproximation was noted. Area was tattooed with an injection of 1 mL of Spot (carbon black). Impression: - One 70 mm polyp at the recto-sigmoid colon at 12cm proximal to the anus, removed with endoscopic submucosal dissection. Resected andretrieved. Endoscopic suturing performed. Tattooed. Recommendation: - Discharge patient to home. - Await pathology results. - Repeat colonoscopy for surveillance based onpathology results. - Soft diet for 3 days. - No aspirin, ibuprofen, naproxen, or othernon-steroidal anti-inflammatory drugs for 5 days. - Colace capsule(s) orally BID for 2 weeks. - Return to referring physician. Nanda Riggs MD 01/26/2024 11:26:27 AM This report has been signed electronically. Estimated Blood Loss: Estimated blood loss: none. Sylvia Martinez MD GASTRO LOWER Fi nal Result * GLUCOSE METER, POINT OF CARE (01/26/2024 7:40 AM EST) GLUCOSE - POCT 95 70 - 120 mg/dL 01/26/2024 7:48 AM EST [facility] Blood Whole blood specimen / Unknown 01/26/2024 7:40 AM EST 01/26/2024 7:48 AM EST us Nanda Riggs MD LAB POINT OF CARE T EST DOCKED DEVICE UNSOLICITED RESULTS Final Result [facility] [address] [facility] [place] [address] documented in this encounter Administered Medications Inactive Administered Medications - up to 3 most recent administrations Medication Order MAR Action Action Date Dose Rate Site Isolyte-S pH 7.4 infusion Intravenous, at 25 mL/hr, All Patients EXCEPT Dialysis patients Plasma-LYTE 148, isolyte-S, and isolyte-S pH 7.4 are considered equivalent - including for MAR barcode scanning., CONTINUOUS, Starting on Wed01/26/24 at 0800, Until Wed01/26/24 at 1613, Pre-Op New Bag 01/26/2024 8:50 AM EST documented in this encounter Active and Recently Administered Medications Times are shown in EST. Scheduled Medication Order 01/24/2024 01/25/2024 01/26/2024 cefOXitin in dextrose (Mefoxin) ivpb 2 g (COMPLETED) 2 g, IV Piggyback, ONCE, 1 dose, On Wed01/26/24 at 0915 0857 (Given - Provid er: Shay Boles CRNA) Continuous Medication Order 01/24/2024 01/25/2024 01/26/2024 Isolyte-S pH 7.4 infusion Intravenous, at 25 mL/hr, All Patients EXCEPT Dialysis patients Plasma-LYTE 148, isolyte-S, and isolyte-S pH 7.4 are considered equivalent - including for MAR barcode scanning., CONTINUOUS, Starting on Wed01/26/24 at 0800, Until Wed01/26/24 at 1613, Pre-Op 0850 (New Bag - Prov ider: Shay Boles CRNA - Comment: IV insitu)1113 (Stopped - Provider: Shay Boles CRNA) documented in this encounter Care Teams Piano Mechanic Relationship Specialty Start Date End Date Sylvia Andino MD [address] [place] [address] [place] [address] PCP - General Family Medicine 05/26/23 documented as of this encounter
--- OUTSIDE RECORDS SUMMARY | 2024-02-10 08:52 | External Medical Summary ---
Author Name Unknown Address Unknown Organization K0G:[facility] [place] [address] [place] [id number] Laboratory Report Ordering Provider Test Date Status JANIYA SAEED 02/08/2024 11:43:10 Final Observation Date Value Abnormality Reference (Units ) Status Calcium 02/08/2024 11:43:10 10.4 Above high normal 8. 4-10.2 (mg/dL) Final Performing Location [facility] [place] [address] [place] [id number]
--- OUTSIDE RECORDS SUMMARY | 2024-02-10 08:52 | External Medical Summary | Summary of Care ---
Author Name Unknown Organization [facility] Address [address] [place] [address] Phone [phone] Care Team Providers Care Electronic Engineering Draftsperson Name Role Phone Sylvia Andino MD Primary Care Prov ider Reason for Visit * Reason Onset Date Comments Medication Pre-auth 12/14/2023 Reclast Encounter Details Date Type Department Care Team (Late st Contact Info) Description 12/14/2023 Telephone Hematology/Oncology Treatment, [facility] [address] [place] [address] Liam Kimble MD [address] [place] [address] Medication Pre-auth (Reclast) Allergies No known active allergiesdocumented as of this encounter (statuses as of 12/15/2023) Medications No known medicationsdocumented as of this encounter (statuses as of 12/15/2023) Active Problems Problem Noted Date Diagnosed Date Hyperparathyroidism, primary 12/14/2023 Parathyroid adenoma 12/07/2023 Other osteoporosis without current pathological fracture 12/07/2023 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 Tobacco use disorder documented as of this encounter (statuses as of 12/15/2023) Immunizations Name Administration Dates Next Due Pneumococcal [...] INFUSION. PROCEDURE SCHEDULED FOR 02/01/2024. " Dr. Ignacio farnsworth, ok to wait until after surgery to schedule? * Telephone Encounter - Allison Metcalf RN - 12/14/2023 4:25 PM EDT Referral entered, waiting for PFC review. * Telephone Encounter - Ina Carrero LPN - 12/14/2023 12:54 PM EDT Order received for Reclast [place] plan built and routed to provider Awaiting provider signature, completed lab results, and prior authorization before scheduling patient. documented in this encounter Plan of Treatment Upcoming Encounters Date Type Department Care Team (Latest Contact Info) Description 01/26/2024 9:48 AM EST Hospital Encounter OR [facility], Operating Room, [facility] - 4th Floor [address] [place] [address] Nanda Riggs MD [address] [place] [address] 01/26/2024 9:48 AM EST - 01/26/2024 11:48 AM EST Surgery OR [facility], Operating Room, [facility] - 4th Floor [address] [place] [address] Nanda Riggs MD [address] [place] [address] COLONOSCOPY, FLEXIBLE; WITH ENDOSCOPIC MUCOSAL RESECTION 02/01/2024 7:30 AM EST Hospital Encounter OR [facility], OPERATING ROOM [facility] [address] [place] [facility] [place] [phone] Elliot Marti, [address] [place] [address] 02/01/2024 7:30 AM EST - 02/01/2024 10:12 AM EST Surgery OR [facility], OPERATING ROOM [facility], [facility] [address] [facility] [place] [address] Elliot Marti DO [address] [place] [address] PARATHYROIDECTOMY 02/08/2024 11:45 AM EST Office Visit Otolaryngology [facility] [address] [place] [address] Elliot Marti DO [address] [place] [address] 05/31/2024 11:00 AM EDT Office Visit Family Medicine [address] [phone] Sylvia Andino MD [address] [place] [address] [place] [address] Scheduled Procedures Name Priority Associated Diagnoses Date/Ti [...] TO SMARTSET #1146) 12/10/2023 DXA Scan 12/05/2025 12/06/2023 Lipid Panel 05/25/2028 05/26/2023, 05/05/2012, 02/09/2005 DTap/Tdap Vaccines (3 - Td o r Tdap) 05/25/2033 05/26/2023, 03/13/2011 Colonoscopy 10/31/2033 11/01/2023, 11/01/2023 Colorectal Cancer Screening 10/31/2033 VITAMIN D LEVEL ONCE IN A LIFETIME-USE SMARTSET# [id number] Completed 06/28/2023 HPV (Gardasil) Vaccine Aged Out No lo nger eligible based on patient's age to complete this topic MENINGOCOCCAL (MENACTRA/MENVEO) Aged Out No longer eligible b ased on patient's age to complete this topic documented as of this encounter Medical Devices Not on filedocumented as of this encounter Care Teams Electronic Engineering Draftsperson Relationship Specialty Start Date End Date Sylvia Andino MD [address] [place] [address] [place] [address] PCP - General Family Medicine 05/26/23 documented as of this encounter
--- OUTSIDE RECORDS SUMMARY | 2024-02-10 08:52 | External Medical Summary ---
Author Name Unknown Address Unknown Organization : Laboratory Report Ordering Provider Test Date Status JANIYA SAEED 02/01/2024 06:30:23 Final Observation Date Value Abnormality Reference (Units ) Status Glucose Point of Care 02/01/2024 06:30:23 109 70-120 (mg/dL) Final Performing Location
--- OUTSIDE RECORDS SUMMARY | 2024-02-10 08:52 | External Medical Summary ---
Author Name Unknown Address Unknown Organization [id number]:[facility] - [address] [place] [address] Laboratory Report Ordering Provider Test Date Status ANA TOLEDO 02/01/2024 10:17:00 Final Observation Date Value Abnormality Reference (Units ) Status Parathyrin.intact [Mass/volume] in Serum or Plasma 02/01/2024 10:17:00 19 15-65 (pg/mL) Final Performing Location [facility] - [address] [place] [address]
--- OUTSIDE RECORDS SUMMARY | 2024-02-10 08:52 | External Medical Summary ---
Author Name Unknown Address Unknown Organization [id number]:[facility] [place] [address] [place] [address] Laboratory Report Ordering Provider Test Date Status JANIYA SAEED 02/08/2024 11:43:10 Final Observation Date Value Abnormality Reference (Units ) Status Parathyrin.intact [Mass/volume] in Serum or Plasma 02/08/2024 11:43:10 27 15-65 (pg/mL) Final Performing Location [facility] [place] [address] [place] [address]
--- OUTSIDE RECORDS SUMMARY | 2024-02-10 08:52 | External Medical Summary ---
Author Name Unknown Address Unknown Organization [id number]:[facility] - [address] [place] [address] Laboratory Report Ordering Provider Test Date Status ANA TOLEDO 02/01/2024 10:17:00 Final Observation Date Value Abnormality Reference (Units ) Status Calcium 02/01/2024 10:17:00 9.4 8.4-10.2 ( mg/dL) Final Performing Location [facility] - [address] [place] [address]
--- OUTSIDE RECORDS SUMMARY | 2024-02-10 08:52 | External Medical Summary ---
Author Name Unknown Address Unknown Organization [id number]:[facility] [place] [address] [place] [address] Laboratory Report Ordering Provider Test Date Status JANIYA SAEED 02/01/2024 07:48:00 Final Observation Date Value Abnormality Reference (Units ) Status Parathyrin.intact [Mass/volume] in Serum or Plasma 02/01/2024 07:48:00 392 Above high normal 10-65 (pg/mL) Final Told OR18 at 0831 Performing Location [facility] [place] [address] [place] [address]
--- OUTSIDE RECORDS SUMMARY | 2024-02-10 08:52 | External Medical Summary | Summary of Care ---
Author Name Unknown Organization [facility] Address [address] [address] Phone [phone] Care Team Providers Care Pilot Fuel Engineer Name Role Phone Sylvia Andino MD Primary Care Prov ider Reason for Visit * Reason Comments Post-Op Encounter Details Date Type Department Care Team (Late st Contact Info) Description 02/08/2024 11:45 AM EST Office Visit Otolaryngology [facility] [address] [place] [address] Elliot Marti DO [address] [place] [address] Hyperparathyroidism, primary ([facility])* Allergies No known active allergiesdocumented as of this encounter (statuses as of 02/08/2024) Medications oxyCODONE HCl 5 MG Oral Tablet (Oxy IR) Take 1 Tablet by mouth every 4 hours as needed for Pain, Severe. 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 Not on file Not on fi le documented as of this encounter Last Filed Vital Signs Vital Sign Reading Time Taken Comments Blood Pressure - - Pulse - - Temperature 36.6 C (97.8 F) 02/08/2024 11:[address] Respiratory Rate - - Oxygen Saturation - - Inhaled Oxygen Concentration - - Weight 68.3 kg (150 lb 9.6 oz) 02/08/2024 11:12 AM EST Height 167.6 cm (5' 6") 02/08/2024 11:12 AM EST Body Mass Index 24.31 02/08/2024 11:12 AM EST documented in this encounter Progress Notes * Elliot Marti, - 02/08/2024 11:13 AM EST ENT Post Op Clinic Note 02/08/2024 Beau Schmidt is a 54 year old male who presents to clinic for post surgical follow up. The patient denies any problems with his neck since discharge. Denies numbness, tingling, parasthesia, or signs of infection. Has been constipated. Is taking MiraLax and stool softener. Also has had issues with his taste since surgery Physical Exam: Gen: Good voice quality HEENT: Incision is clean, dry, and intact without evidence of infection or fluid collection Procedure: Due to patient's inability to cooperate with mirror exam or concern for structures otherwise not evaluated, fiberoptic examination of the larynx was performed. The nose was first topically decongested with topical oxymetazoline 0.05% spray and topically anesthetized with topical Lidocaine 4% spray. Nasopharynx was visualized and was without masses or lesions. Fiberoptic examination revealed no mass lesions. Vocal cord mobility was normal without paralysis or paresis. There was no significant edema or erythema of the larynx. No vocal cord masses were visualized. Exam was negative for post cricoid or pyriform sinuses lesions. The patient tolerated the procedure well. Patient should refrain from eating or drinking for 30-45 minutes due to anesthesia of the pharynx and possible interference with swallowing. Path: parathyroid adenoma Assessment: S/p PTX Plan: - Pathology reviewed and all questions answered. - May now shower and drive as long as not on pain medication. - No strenuous activity for one more week. - Scar formation was discussed. Advised to avoid sun exposure to the healing wound for up to a year. Also recommended that six weeks after surgery to massage the wound with Cocco butter or Vitamin E cream to soften the healing scar. - reassurance provided his parathyroid surgery should have no anatomic or physiologic effect on histaste. - discuss bowel regimen with PCP - follow up with endocrinology - PTH and calcium today - RTC PRN Elliot Marti DO, [facility] Rural Health Consultant, Department of Otolaryngology-Head and Neck Surgery [facility], [place] 02/08/2024 11:50 AM documented in this encounter Nursing Notes * Mili Kraft LPN - 02/08/2024 11:09 AM EST Patient presents today for post op. Pt notes having altered taste, can only eat a little at a time as it causes nausea. States still having trouble with going to the bathroom, taking colace. No pain medication needed. Left foot only has been going numb, is using tums for this. No numbness or tingling in hands or face. DATE OF PROCEDURE: 02/01/2024 9:16 AM PRE-OP DIAGNOSIS: Hyperparathyroidism POST-OP DIAGNOSIS: Same PROCEDURE: Parathyroid exploration SURGEON: Elliot Marti DO, FACS documented in this encounter Plan of Treatment Upcoming Encounters Date Type Department Care Team (Late st Contact Info) Description 05/31/2024 11:00 AM EDT Office Visit Family [address] [place] [address] Sylvia Andino MD [address] [place] [address] [place] [address] Pending Results Name Type Priority Associated Diagnoses Date /Time CALCIUM Lab Routine Hyperparathyroidism, primary (HCC) 02/08/2024 11:43 AM EST PTH Lab Routine Hyperparathyroidism, primary (HCC) 02/08/2024 11:43 AM EST Scheduled Orders Name Type Priority Associated Diagnoses Orde r Schedule CALCIUM Lab Routine Hyperparathyroidism, primary (HCC) Expected: 02/08/2024, Expires: 02/07/2025 PTH Lab Routine Hyperparathyroidism, primary (HCC) Expected: 02/08/2024, Expires: 02/07/2025 Health Maintenance Due Date Last Done Comments [...] D LEVEL ONCE IN A LIFETIME-USE SMARTSET# [id number] Completed 06/28/2023 HPV (Gardasil) Vaccine Aged Out No lo nger eligible based on patient's age to complete this topic MENINGOCOCCAL (MENACTRA/MENVEO) Aged Out No longer eligible b ased on patient's age to complete this topic documented as of this encounter Medical Devices Not on filedocumented as of this encounter Visit Diagnoses Diagnosis Hyperparathyroidism, primary (HCC)- Primary Primary hyperparathyroidism documented in this encounter Care Teams Pilot Fuel Engineer Relationship Specialty Start Date End Date Sylvia Andino MD [address] [place] [address] [place] [phone] PCP - General Family Medicine 05/26/23 documented as of this encounter
--- OUTSIDE RECORDS SUMMARY | 2024-02-10 08:52 | External Medical Summary | Summary of Care ---
Author Name Unknown Organization [facility] Address [address] [facility] [place] [address] Phone [phone] Care Team Providers Care Acid Crane Operator Name Role Phone Sylvia Andino MD Primary Care Prov ider Reason for Visit * Reason Onset Date Comments Medication Pre-auth 12/14/2023 Reclast Encounter Details Date Type Department Care Team (Late st Contact Info) Description 12/14/2023 Telephone Hematology/Oncology Treatment, [place] [address] [place] [address] Liam Kimble MD [address] [place] [address] Medication Pre-auth (Reclast) Allergies No known active allergiesdocumented as of this encounter (statuses as of 2024) Medications No known medicationsdocumented as of this [...] 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 * Telephone Encounter - Dylan Hendricks RN [...] 12:54 PM EDT Order received for Reclast [place] plan built and routed to provider Awaiting provider signature, completed lab results, and prior authorization before scheduling patient. documented in this encounter Plan of Treatment Upcoming Encounters Date Type Department Care Team (Late st Contact Info) Description 02/08/2024 11:45 AM EST Office Visit Otolaryngology [facility] [address] [facility] [place] [address] Elliot Marti DO [address] [place] [address] 05/31/2024 11:00 AM EDT Office Visit Family Medicine [address] [place] [phone] Sylvia Andino MD [address] [place] [address] [place] [address] Health Maintenance Due Date Last Done Comments [...] D LEVEL ONCE IN A LIFETIME-USE SMARTSET# [id number] Completed 06/28/2023 HPV (Gardasil) Vaccine Aged Out No lo nger eligible based on patient's age to complete this topic MENINGOCOCCAL (MENACTRA/MENVEO) Aged Out No longer eligible b ased on patient's age to complete this topic documented as of this encounter Medical Devices Not on filedocumented as of this encounter Care Teams Acid Crane Operator Relationship Specialty Start Date End Date Sylvia Andino MD [address] [place] [address] [place] [phone] PCP - General Family Medicine 05/26/23 documented as of this encounter
--- OUTSIDE RECORDS SUMMARY | 2024-02-10 08:53 | External Medical Summary | Summary of Care ---
Author Name Unknown Organization [facility] Address [address] [facility] [place] [address] Phone [phone] Care Team Providers Care Cigarette Machine Operator Name Role Phone Sylvia Andino MD Primary Care Prov ider Reason for Visit * Reason Comments Follow Up Encounter Details Date Type Department Care Team (Late st Contact Info) Description 12/14/2023 1:00 PM EDT Office Visit Otolaryngology [facility] [address] [place] [address] Elliot Marti DO [address] [place] [address] Hyperparathyroidism, primary ([facility])* Allergies No known active allergiesdocumented as of [...] on file documented as of this encounter Last Filed Vital Signs Vital Sign Reading Time Taken Comments Blood Pressure - - Pulse - - Temperature - - Respiratory Rate - - Oxygen Saturation - - Inhaled Oxygen Concentration - - Weight 69.5 kg (153 lb 3.2 oz) 12/14/2023 12:33 PM EDT Height 170.2 cm (5' 7") 12/14/2023 12:33 PM EDT Body Mass Index 23.99 12/14/2023 12:33 PM EDT documented in this encounter Progress Notes * Elliot Marti, DO - 12/14/2023 12:33 PM EDT Otolaryngology Head and Neck Surgery 12/14/2023 Patient returns today for recheck of his hyperparathyroidism. He does have severe osteoporosis noted on a recent DEXA scan. His 4D CT scan revealed a likely right-sided adenoma. This coincides with his nuclear med parathyroid scan in his ultrasound of the neck. Endocrinology has recommended proceeding with surgery. Problem List Patient Active Problem List Diagnosis ADVANCE DIRECTIVE INFORMATION Tobacco use disorder Gastroesophageal reflux disease without esophagitis IgG Gliadin antibody positive Bloating Parathyroid adenoma Other osteoporosis without current pathological fracture Past Medical History: Diagnosis Date Fracture of ulna, open Gastric ulcer Gastroesophageal reflux disease without esophagitis 11/12/2014 Gluten intolerance 05/05/12 Gliadin IGA elevated Strep throat 03/13/11 Tobacco use disorder Past Surgical History: Procedure Laterality Date ABD / PELVIS CT WITH IV CONTRAST (NO PO) 09/20/2015 heterogenous material in bladder, no inflammatory process COLONOSCOPY, DIAGNOSTIC (RECTUM) 11/01/2023 biopsies show tubulovillous adenoma/COLONOSCOPY FLEXIBLE PROXIMAL DIAGNOSTIC performed by Jackie Ann MD at [facility] EGD, FLEXIBLE, DIAGNOSTIC 11/01/2023 esophagogastric landmarks/biopsies normal/ESOPHAGOGASTRODUODENOSCOPY (EGD), FLEXIBLE, TRANSORAL, DIAGNOSTIC performed by Jackie Ann MD at [facility] Medications No current outpatient medications on file. No current facility-administered medications for this visit. Allergies Review of patient's allergies indicates: No Known Allergies Family History Family History Problem Relation Name Age of Onset Diabetes Father Social History Social History Tobacco Use Smoking status: Every Day Current packs/day: 0.50 Average packs/day: 0.5 packs/day for 26.0 years (13.0 ttl pk-yrs) Types: Cigarettes Smokeless tobacco: Never Tobacco comments: age 16 Substance Use Topics Alcohol use: Not Currently Comment: quit 5 years ago ( 2018) Vaping/E-Cigarette Use Vaping/E-Cigarette Substances Vaping/E-Cigarette Devices Review of Systems Negative for constitutional, eyes, cardiac, pulmonary, hepatic, renal, digestive, hematologic, epileptic, syncopal, musculo-skeletal, mental health, integumentary, hypertensive, lipid, arthritic, diabetic, thyroid, or neurologic disorders (except as listed in the PMH and Problem List). Physical Examination: There were no vitals taken for this visit. PHYSICAL EXAM General: This is a healthy appearing male who appears his stated age. The patient is alert and appropriately verbally conversant without hoarseness. Face: The face was inspected and no cutaneous masses or lesions were visualized. There was no erythema or edema noted. Facial movement was symmetric without weakness. Eyes: Extra-ocular muscle function was intact. No nystagmus was observed. Pupils were equal. Cranial Nerves: Cranial nerves II, III, IV, and were noted to be intact via extra-ocular muscle movement testing. Cranial nerve VII noted to be intact and symmetric by facial movement. Neck: Visualization and palpation of the neck revealed no mass lesions, no thyromegaly or thyroid masses. No skin lesions or inflammatory processes were detected. The cervical musculature was normal to palpation. Lymphatics (cervical): There were no palpable lymph nodes in the posterior triangle, submandibular triangle, jugulodigastric region, or central neck. Procedure: Due to patient's inability to cooperate [...] the pharynx and possible interference with swallowing. ASSESSMENT: Primary Hyperparathyroidism PLAN: We discussed that parathyroid exploration is warranted at this time (scan directed). We discussed the procedure extensively with him including risk of postoperative hypocalcemia, recurrent laryngeal nerve palsy, general anesthesia, bleeding, infection, and scarring of an excessive nature. He verbalized understanding of the procedure and gave informed consent. He was consulted to avoid ibuprofen or aspirin products for ten days prior to surgery. He will be called the night before surgery for a time to arrive. I spent a total of 30 minutes on the date of service in preparation, delivery, and documentation ofthe care provided to the above patient, excluding any time spent on the performance of any procedures or separately billable services. Elliot Marti DO, [facility] Executive Secretary, Department of Otolaryngology-Head and Neck Surgery [facility] [place], [place] 12/14/2023 1:14 PM documented in this encounter Nursing Notes * Mili Kraft LPN - 12/14/2023 12:35 PM EDT Chief Complaint Patient presents with Follow Up Patient returns today to discuss imaging. Pt has seen endocrinology and had further testing. CT NECK 12/07/23 IMPRESSION: 12 mm orthotopic right superior parathyroid adenoma. Plan: Recommend 4D CT scan for better anatomic evaluation of the neck prior to consideration of surgery. Endocrinology referral placed for further workup of possible familial versus MEN syndrome prior to surgical intervention. I will see him back after the scan and the Endocrinology evaluation. Elliot Marti DO, [facility] Executive Secretary, Department of Otolaryngology-Head and Neck Surgery [facility] [place], [place] 11/05/2023 1:21 PM documented in this encounter Plan of Treatment Upcoming Encounters Date Type Department Care Team (Latest Contact Info) Description 01/26/2024 9:48 AM EST Hospital Encounter OR [facility], Operating Room, [facility] - 4th Floor [address] [place] [address] Nanda Riggs MD [address] [place] [address] 01/26/2024 9:48 AM EST - 01/26/2024 11:48 AM EST Surgery OR [facility], Operating Room, [facility] - 4th Floor [address] [place] [address] Nanda Riggs MD [address] [place] [address] COLONOSCOPY, FLEXIBLE; WITH ENDOSCOPIC MUCOSAL RESECTION 02/08/2024 11:45 AM EST Office Visit Otolaryngology [facility] [address] [address] Elliot Marti DO [address] [place] [address] 05/31/2024 11:00 AM EDT Office Visit Family Medicine [address] [place] [phone] Sylvia Andino MD [address] [place] [address] [place] [address] Scheduled Procedures Name Priority Associated Diagnoses Date/Ti me COLONOSCOPY, FLEXIBLE; WITH ENDOSCOPIC MUCOSAL RESECTION Colon polyp 01/26/2024 9:48 AM EST PARATHYROIDECTOMY Hyperparathyroidism, primary (HCC) Health Maintenance Due Date Last Done Comments [...] D LEVEL ONCE IN A LIFETIME-USE SMARTSET# [id number] Completed 06/28/2023 HPV (Gardasil) Vaccine Aged Out No lo nger eligible based on patient's age to complete this topic MENINGOCOCCAL (MENACTRA/MENVEO) Aged Out No longer eligible b ased on patient's age to complete this topic documented as of this encounter Medical Devices Not on filedocumented as of this encounter Visit Diagnoses Diagnosis Hyperparathyroidism, primary (HCC)- Primary Primary hyperparathyroidism Colon polyp Benign neoplasm of colon documented in this encounter Care Teams Cigarette Machine Operator Relationship Specialty Start Date End Date Sylvia Andino MD [address] [place] [address] [place] [phone] PCP - General Family Medicine 05/26/23 documented as of this encounter
--- OUTSIDE RECORDS SUMMARY | 2024-02-10 08:53 | External Medical Summary | Summary of Care ---
Author Name Unknown Organization [facility] Address [address] [place] [address] Phone [phone] Care Team Providers Care Lift Truck Mechanic Name Role Phone Sylvia Andino MD Primary Care Prov ider Reason for Visit * Reason Onset Date Comments Medication Pre-auth 12/14/2023 Reclast Encounter Details Date Type Department Care Team (Late st Contact Info) Description 12/14/2023 Telephone Hematology/Oncology Treatment, [place] [address] [place] [address] Liam Kimble MD [address] [place] [address] Medication Pre-auth (Reclast) Allergies No known active allergiesdocumented as of this encounter (statuses as of 12/14/2023) Medications No known medicationsdocumented as of this encounter (statuses as of 12/14/2023) Active Problems Problem Noted Date Diagnosed Date Parathyroid adenoma 12/07/2023 Other osteoporosis without current pathological fracture 12/07/2023 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 Tobacco use disorder documented as of this encounter (statuses as of 12/14/2023) Immunizations Name Administration Dates Next Due Pneumococcal [...] encounter Miscellaneous Notes * Telephone Encounter - Ina Carrero LPN - 12/14/2023 12:54 PM EDT Order received for Reclast [place] plan built and routed to provider Awaiting provider signature, completed lab results, and prior authorization before scheduling patient. documented in this encounter Plan of Treatment Upcoming Encounters Date Type Department Care Team (Latest Contact Info) Description 01/26/2024 9:48 AM EST Hospital Encounter OR [facility], Operating Room, [facility] - 4th Floor [address] [place] [address] Nanda Riggs MD [address] [place] [address] 01/26/2024 9:48 AM EST - 01/26/2024 11:48 AM EST Surgery OR [facility], Operating Room, [facility] - 4th Floor [address] [place] [address] Nanda Riggs MD [address] [place] [address] COLONOSCOPY, FLEXIBLE; WITH ENDOSCOPIC MUCOSAL RESECTION 02/08/2024 11:45 AM EST Office Visit Otolaryngology [facility] [address] [place] [address] Elliot Marti, [address] [place] [address] 05/31/2024 11:00 AM EDT Office Visit Family Medicine [address] [place] [phone] Sylvia Andino MD [address] [place] [address] [place] [address] Scheduled Procedures Name Priority Associated Diagnoses Date/Ti me COLONOSCOPY, FLEXIBLE; WITH ENDOSCOPIC MUCOSAL RESECTION Colon polyp 01/26/2024 9:48 AM EST Health Maintenance Due Date Last [...] D LEVEL ONCE IN A LIFETIME-USE SMARTSET# [id number] Completed 06/28/2023 HPV (Gardasil) Vaccine Aged Out No lo nger eligible based on patient's age to complete this topic MENINGOCOCCAL (MENACTRA/MENVEO) Aged Out No longer eligible b ased on patient's age to complete this topic documented as of this encounter Medical Devices Not on filedocumented as of this encounter Care Teams Lift Truck Mechanic Relationship Specialty Start Date End Date Sylvia Andino MD [address] [place] [address] [place] [phone] PCP - General Family Medicine 05/26/23 documented as of this encounter
--- OUTSIDE RECORDS SUMMARY | 2024-02-10 08:53 | External Medical Summary | Summary of Care ---
Author Name Unknown Organization [facility] Address [address] [place] [address] Phone [phone] Care Team Providers Care Client Delivery Specialist Name Role Phone Sylvia Andino MD Primary Care Prov ider Encounter Details Date Type Department Care Team (Late st Contact Info) Description 12/14/2023 Orders Only Endocrinology [facility] [place] [address] [place] [address] Liam Kimble MD [address] [place] [address] OP plan signed. Allergies No known active allergiesdocumented as of [...] on file documented as of this encounter Progress Notes * Liam Kimble MD - 12/14/2023 1:23 PM EDT OP plan signed. documented in this encounter Plan of Treatment Upcoming Encounters Date Type Department Care Team (Latest Contact Info) Description 01/26/2024 9:48 AM EST Hospital Encounter OR [facility], Operating Room, [facility] - 4th Floor [address] [place] [phone] Nanda Riggs MD [address] [place] [address] 01/26/2024 9:48 AM EST - 01/26/2024 11:48 AM EST Surgery OR [facility], Operating Room, [facility] - 4th Floor [address] [place] [phone] Nanda Riggs MD [address] [place] [address] COLONOSCOPY, FLEXIBLE; WITH ENDOSCOPIC MUCOSAL RESECTION 02/08/2024 11:45 AM EST Office Visit Otolaryngology [facility] [address] [place] [address] Elliot Marti DO [address] [place] [address] 05/31/2024 11:00 AM EDT Office Visit Family Medicine [address] [place] [phone] Sylvia Andino MD [address] [place] [address] [place] [address] Scheduled Procedures Name Priority Associated Diagnoses Date/Ti [...] D LEVEL ONCE IN A LIFETIME-USE SMARTSET# 00302 Completed 06/28/2023 HPV (Gardasil) Vaccine Aged Out No lo nger eligible based on patient's age to complete this topic MENINGOCOCCAL (MENACTRA/MENVEO) Aged Out No longer eligible b ased on patient's age to complete this topic documented as of this encounter Medical Devices Not on filedocumented as of this encounter Care Teams Client Delivery Specialist Relationship Specialty Start Date End Date Sylvia Andino MD [address] [place] [address] [place] [address] PCP - General Family Medicine 05/26/23 documented as of this encounter
--- OUTSIDE RECORDS SUMMARY | 2024-02-10 08:53 | External Medical Summary | Summary of Care ---
Author Name Unknown Organization [facility] Address [address] [place] [address] Phone [phone] Care Team Providers Care Powder Blender And Pourer Name Role Phone Sylvia Andino MD Primary Care Prov ider Reason for Visit * Reason Onset Date Comments Medication Pre-auth 12/14/2023 Reclast Encounter Details Date Type Department Care Team (Late st Contact Info) Description 12/14/2023 Telephone Hematology/Oncology Treatment, [facility] [address] [place] [address] Liam Kimble MD [address] [place] [address] Medication Pre-auth (Reclast) Allergies No [...] encounter Miscellaneous Notes * Telephone Encounter - Allison Metcalf RN - 12/14/2023 4:25 PM EDT Referral entered, waiting for PFC review. * Telephone Encounter - Ina Carrero LPN - 12/14/2023 12:54 PM EDT Order received for Reclast [place] plan built and routed to provider Awaiting provider signature, completed lab results, and prior authorization before scheduling patient. documented in this encounter Plan of Treatment Upcoming Encounters Date Type Department Care Team (Latest Contact Info) Description 01/26/2024 9:48 AM EST Hospital Encounter OR [facility], Operating Room, [facility] - 4th Floor [address] [phone] Nanda Riggs MD [address] [place] [address] 01/26/2024 9:48 AM EST - 01/26/2024 11:48 AM EST Surgery OR [facility], Operating Room, [facility] - 4th Floor [address] [phone] Nanda Riggs MD [address] [place] [address] COLONOSCOPY, FLEXIBLE; WITH ENDOSCOPIC MUCOSAL RESECTION 02/08/2024 11:45 AM EST Office Visit Otolaryngology [facility] [address] [place] [address] Elliot Marti DO [address] [place] [address] 05/31/2024 11:00 AM EDT Office Visit Family [address] [phone] Sylvia Andino MD [address] [place], [place] [address] [address] Scheduled Procedures Name Priority Associated Diagnoses Date/Ti [...] D LEVEL ONCE IN A LIFETIME-USE SMARTSET# 78058 Completed 06/28/2023 HPV (Gardasil) Vaccine Aged Out No lo nger eligible based on patient's age to complete this topic MENINGOCOCCAL (MENACTRA/MENVEO) Aged Out No longer eligible b ased on patient's age to complete this topic documented as of this encounter Medical Devices Not on filedocumented as of this encounter Care Teams Powder Blender And Pourer Relationship Specialty Start Date End Date Sylvia Andino MD [address] [place] [address] [place] [address] PCP - General Family Medicine 05/26/23 documented as of this encounter
--- OUTSIDE RECORDS SUMMARY | 2024-02-10 08:53 | External Medical Summary | Summary of Care ---
Author Name Unknown Organization [facility] Address [address] [facility] [place] [address] Phone [phone] Care Team Providers Care Advanced Practice Professional Name Role Phone Sylvia Andino MD Primary Care Prov ider Reason for Visit * Reason Comments Follow Up Encounter Details Date Type Department Care Team (Late st Contact Info) Description 12/14/2023 1:00 PM EDT Office Visit Otolaryngology [facility] [address] [place] [address] Elliot Marti DO [address] [place] [address] Hyperparathyroidism, primary ([facility])* Allergies No known active allergiesdocumented as of [...] performed by Jackie Ann MD at ENDOSCOPY [facility] EGD, FLEXIBLE, DIAGNOSTIC 11/01/2023 esophagogastric landmarks/biopsies normal/ESOPHAGOGASTRODUODENOSCOPY (EGD), FLEXIBLE, TRANSORAL, DIAGNOSTIC performed by Jackie Ann MD at ENDOSCOPY [facility] Medications No current outpatient medications on file. [...] or separately billable services. Elliot Marti DO, [facility] Grain Oilseed Or Pasture Grower, Department of Otolaryngology-Head and Neck Surgery [facility], [place] 12/14/2023 1:14 PM documented in this encounter [...] and the Endocrinology evaluation. Elliot Marti DO, [facility] [employer] Or Pasture Grower, Department of Otolaryngology-Head and Neck Surgery [facility], [place] 11/05/2023 1:21 PM documented in this encounter Miscellaneous Notes * Addendum Note - Patricia Rg PA-C - 12/15/2023 9:02 AM EDTAddended by: PATRICIA RG on: 12/15/2023 09:02 AM Modules accepted: Orders documented in this encounter Plan of Treatment Upcoming Encounters Date Type Department Care Team (Latest Contact Info) Description 01/26/2024 9:48 AM EST Hospital Encounter OR [facility], Operating Room, [facility] - 4th Floor [address] [place] [phone] Nanda Riggs MD [address] [place] [address] 01/26/2024 9:48 AM EST - 01/26/2024 11:48 AM EST Surgery OR [facility], Operating Room, [facility] - 4th Floor [address] [place] [address] Nanda Riggs MD [address] [place] [address] COLONOSCOPY, FLEXIBLE; WITH ENDOSCOPIC MUCOSAL RESECTION 02/08/2024 11:45 AM EST Office Visit Otolaryngology [facility] [address] [address] Elliot Marti DO [address] [place] [address] 05/31/2024 11:00 AM EDT Office Visit Family Medicine [address] [place] [phone] Sylvia Andino MD [address] [place] [address] [place] [address] Scheduled Procedures Name Priority [...] D LEVEL ONCE IN A LIFETIME-USE SMARTSET# 14120 Completed 06/28/2023 HPV (Gardasil) Vaccine Aged Out [...] colon documented in this encounter Care Teams Advanced Practice Professional Relationship Specialty Start Date End Date Sylvia Andino MD [address] [place] [address] [place] [phone] PCP - General Family Medicine 05/26/23 documented as of this encounter
--- OUTSIDE RECORDS SUMMARY | 2024-02-10 08:53 | External Medical Summary | Summary of Care ---
Author Name Unknown Organization [facility] Address [address] [facility] [place] [address] Phone [phone] Care Team Providers Care Barrel Washer Machine Name Role Phone Sylvia Andino MD Primary Care Prov ider Reason for Visit * Reason Comments Follow Up Encounter Details Date Type Department Care Team (Late st Contact Info) Description 12/14/2023 1:00 PM EDT Office Visit Otolaryngology [facility] [address] [place] [address] Elliot Marti DO [address] [place] [address] Hyperparathyroidism, primary (H[facility])* Allergies No known active allergiesdocumented as of [...] performed by Jackie Ann MD at ENDOSCOPY [facility] EGD, FLEXIBLE, DIAGNOSTIC 11/01/2023 esophagogastric landmarks/biopsies normal/ESOPHAGOGASTRODUODENOSCOPY (EGD), FLEXIBLE, TRANSORAL, DIAGNOSTIC performed by Jackie Ann MD at ENDOSCOPY [facility] Medications No current outpatient medications on [...] or separately billable services. Elliot Marti DO, [facility] Piano Stringer, Department of Otolaryngology-Head and Neck Surgery [facility], [place] 12/14/2023 1:14 PM documented in this [...] and the Endocrinology evaluation. Elliot Marti DO, [facility] Piano Stringer, Department of Otolaryngology-Head and Neck Surgery [facility], [place] 11/05/2023 1:21 PM documented in this encounter Plan of Treatment Upcoming Encounters Date Type Department Care Team (Latest Contact Info) Description 01/26/2024 9:48 AM EST Hospital Encounter OR [facility], Operating Room, [facility] - 4th Floor [address] [place] [phone] Nanda Riggs MD [address] [place] [address] 01/26/2024 9:48 AM EST - 01/26/2024 11:48 AM EST Surgery OR [facility], Operating Room, [facility] - 4th Floor [address] [place] [phone] Nanda Riggs MD [address] [place] [address] COLONOSCOPY, FLEXIBLE; WITH ENDOSCOPIC MUCOSAL RESECTION 02/08/2024 11:45 AM EST Office Visit Otolaryngology [facility] [address] [place] [address] Elliot Marti DO [address] [place] [address] 05/31/2024 11:00 AM EDT Office Visit Family Medicine [address] [place] [phone] Sylvia Andino MD [address] [place] [address] [place] [address] Scheduled Procedures Name Priority Associated Diagnoses Date/Ti [...] D LEVEL ONCE IN A LIFETIME-USE SMARTSET# 16258 Completed 06/28/2023 HPV (Gardasil) Vaccine Aged Out [...] colon documented in this encounter Care Teams Barrel Washer Machine Relationship Specialty Start Date End Date Sylvia Andino MD [address] [place] [address] [place] [address] PCP - General Family Medicine 05/26/23 documented as of this encounter
--- OUTSIDE RECORDS SUMMARY | 2024-02-10 08:53 | External Medical Summary | Summary of Care ---
Author Name Unknown Organization [facility] [address] [facility] [address] Phone [phone] Care Team Providers Care Home Theater Expert Name Role Phone Sylvia Andino MD Primary Care Prov ider Reason for Visit * Reason Onset Date Comments Appointment 12/07/2023 Encounter Details Date Type Department Care Team (Late st Contact Info) Description 12/07/2023 Telephone [address]illary [address] [place] [phone] Sylvia Andino MD [address] [place] [address] [place] [phone] Appointment Allergies No known active allergiesdocumented as of [...] encounter Miscellaneous Notes * Telephone Encounter - Felicia Newton RN - 12/14/2023 1:16 PM EDT Patient Saw ENT * Telephone Encounter - Sylvia Andino MD - 12/07/2023 1:11 PM EDT Please call patient. 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 He should follow up withENT to discuss surgical resection of the overactive parathyroid gland. Once that is done, we will recommend starting IV Reclast once a year for 2 years to improve his bone density. Please advise him to contact me or Dr Kimble (endocrinology) after he has met with ENT Dr Marti. * Telephone Encounter - Sylvia Andino MD - 12/07/2023 10:35 AM EDT This patient has an abnormal DEXA result, indicating osteoporosis. He is also being evaluated for hyperparathoidism 2/2 hypercalcemia. Would you advise treating the osteoporosis with a bisphosphonate, or rather recommend surgical excision of the problematic parathyroid gland and observation? documented in this encounter Plan of Treatment Upcoming Encounters Date Type Department Care Team (Latest Contact Info) Description 01/26/2024 9:48 AM EST Hospital Encounter OR [facility], Operating Room, [facility] - 4th Floor [address] [address] [phone] Nanda Riggs MD [address] [place] [address] 01/26/2024 9:48 AM EST - 01/26/2024 11:48 AM EST Surgery OR [facility], Operating Room, [facility] - 4th Floor [address] [phone] Nanda Riggs MD [address] [place] [address] COLONOSCOPY, FLEXIBLE; WITH ENDOSCOPIC MUCOSAL RESECTION 02/08/2024 11:45 AM EST Office Visit Otolaryngology [facility] [address] [place] [address] Elliot Marti DO [address] [place] [address] 05/31/2024 11:00 AM EDT Office Visit Family Medicine [address] [place] [phone] Sylvia Andino MD [address] [place] [address] [place] [address] Scheduled Procedures Name Priority Associated Diagnoses Date/Ti [...] D LEVEL ONCE IN A LIFETIME-USE SMARTSET# 43015 Completed 06/28/2023 HPV (Gardasil) Vaccine Aged Out No lo nger eligible based on patient's age to complete this topic MENINGOCOCCAL (MENACTRA/MENVEO) Aged Out No longer eligible b ased on patient's age to complete this topic documented as of this encounter Medical Devices Not on filedocumented as of this encounter Care Teams Home Theater Expert Relationship Specialty Start Date End Date Sylvia Andino MD [address] [place] [address] [place] [address] PCP - General Family Medicine 05/26/23 documented as of this encounter
--- OUTSIDE RECORDS SUMMARY | 2024-02-10 08:54 | External Medical Summary ---
Author Name Unknown Address Unknown Organization : Laboratory Report Ordering Provider Test Date Status GUSTAVO RODRIGUEZ 11/22/2023 08:42:24 Final Observation Date Value Abnormality Reference (Units ) Status Metanephrine Free [Mass/volume] in Serum or Plasma 11/22/2023 08:42:24 33 <=57 (pg/mL) Final This test was developed and its analytical performance
characteristics have been determined by [facility] [employer] [place], [place]. It has
not been cleared or approved by the U.S. Food and Drug
Administration. This assay has been validated pursuant
to the CLIA regulations and is used for clinical
purposes. Normetanephrine Free [Mass/v olume] in Serum or Plasma 11/22/2023 08:42:24 64 <=148 (pg/mL) Eula l This test was developed and its analytical performance
characteristics have been determined by [facility] [place] It has
not been cleared or approved by the U.S. Food and Drug
Administration. This assay has been validated pursuant
to the CLIA regulations and is used for clinical
purposes. Metanephrines 11/22/2023 08:42:24 97 <=205 (pg/mL) Final For additional information, please refer to
http://[email or web address].[email or web address]/MetFractFree
(This link is being provided for informational/educatio
informational/educational purposes only.)
Elevations >4-fold upper reference range: strongly
suggestive of a pheochromocytoma(1).
Elevations >1- 4-fold upper reference range:
significant but not diagnostic, may be due to
medications or stress. Suggest running 24 hr urine
fractionated metanephrines and/or serum Chromagranin A
for confirmation.
Reference:
(1)Santi Loera et al, Plasma Chromogranin A
or Urine Fractionated Metanephrines Follow-Up Testing
Improves the Diagnostic Accuracy of Plasma Fractionated
Metanephrines for Pheochromocytoma. The Journal of
Clinical Endocrinology # Metabolism 93(1), 91-95, 2008.
This test was developed and its analytical performance
characteristics have been determined by [facility] [place] It has
not been cleared or approved by the U.S. Food and Drug
Administration. This assay has been validated pursuant
to the CLIA regulations and is used for clinical
purposes.

Test Performed at:
[facility]
[address] [facility]
[place] [address]
Dylan Dupree M.D., Ph.D.,Director of Laboratories Performing Location
--- OUTSIDE RECORDS SUMMARY | 2024-02-10 08:54 | External Medical Summary | Summary of Care ---
Author Name Unknown Organization [facility] Address [address] [facility] [place] [address] Phone [phone] Care Team Providers Care Preschool Head Teacher Name Role Phone Sylvia Andino MD Primary Care Prov ider Reason for Visit * Auth/Cert Specialty Diagnoses / Procedures Referred By Contac t Referred To Contact Diagnoses Screening for colon cancer Screening for colon cancer [Z12.11] Procedures COLONOSCOPY, DIAGNOSTIC (RECTUM) EGD, FLEXIBLE, DIAGNOSTIC COLONOSCOPY FLEXIBLE PROXIMAL DIAGNOSTIC ESOPHAGOGASTRODUODENOSCOPY (EGD), FLEXIBLE, TRANSORAL, DIAGNOSTIC Jackie Ann MD [address] [place] [id number] [facility] [address] [facility] [place] [address] Referral ID Status Reason Start Date Expiration Date Visits Re quested Visits Authorized [id number] [phone] Encounter Details Date Type Department Care Team (Latest Contact Info) Description 11/01/2023 9:31 AM EDT - 11/01/2023 11:45 AM EDT Hospital Encounter [facility], Endoscopy Room [facility] [address] [place] [phone] Jackie Ann MD [address] [place] [id number] Various: G[place]OL[place],UGI Discharge Disposition: Home - Self Care Allergies No known active allergiesdocumented as of this encounter (statuses as of 11/01/2023) Medications No known medicationsdocumented as of this encounter (statuses as of 11/01/2023) Active Problems Problem Noted Date Diagnosed Date 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 Tobacco use disorder documented as of this encounter (statuses as of 11/01/2023) Immunizations Name Administration Dates Next Due Pneumococcal Polysaccharide PPV23 (Pneumovax) 05/05/2012,09/03/2008(Deferred: Patient Refused) Seasonal Influenza, Trivalen t, (IIV3), with Preserv, (Fluzone) 11/12/2014,11/05/2008 TDAP (age 10 and older)(Boostrix) [...] Sign Reading Time Taken Comments Blood Pressure 98/63 11/01/2023 11:31 AM EDT Pulse 61 11/01/2023 11:31 AM EDT Temperature 36.2 C (97.1 F) 11/01/2023 11:16 AM E DT Respiratory Rate 17 11/01/2023 11:31 AM EDT Oxygen Saturation 100% 11/01/2023 11:31 AM EDT Inhaled Oxygen Concentration - - Weight 71.2 kg (157 lb) 11/01/2023 11:31 AM EDT Height 170.2 cm (5' 7") 11/01/2023 11:31 AM EDT Body Mass Index 24.59 11/01/2023 11:31 AM EDT documented in this encounter H&P Notes * Jackie Ann MD - 11/01/2023 10:37 AM EDT Endoscopy Pre-Procedure Assessment Name: Beau Schmidt Date: 11/01/2023 Time: 10:37 AM Procedure(s): Colonoscopy; with Indication(s) of average risk screening Upper GI Endoscopy; with Indication(s) of gliadin ab + Endoscopy Pre-Procedure Assessment: Prior to the procedure, the patient is identified. The patient's history, medications and allergieshave been reviewed. The patient is competent. The risks and benefits of the proposed procedure and the planned sedation have been discussed with the patient. All questions have been answered and informed consent for the procedure has been obtained. Prior to Admission medications Not on File Review of patient's allergies indicates: No Known Allergies BP 111/70 | Pulse 65 | Temp 36.3 C (97.3 F) (Tympanic) | Resp 20 | Ht 1.702 m (5' 7") | Wt 71.2kg (157 lb) | SpO2 99% | BMI 24.59 kg/m | BSA 1.83 m Physical Exam: Mental Status Examination: alert and oriented. Resp: normal CV normal ASA Grade: II - A patient with mild systemic disease. Abdomen: soft This patient has undergone a preprocedural evaluation. A determination has been made to proceed with the planned procedure under [facility] procedural guidelines and the [facility] Non-Emergent, Elective Medical Services and Treatment Recommendations (published on 05-30-19). The community and hospital prevalence of COVID-19 has been discussed as well as this patient's specific risks associated with SARS-CoV-19 infection. Based upon the clinical acuity and patient-specific care considerations, this procedure is deemed a Tier III - Procedures at little or no risk for clinical deterioration (example - cosmetic). After reviewing the risks and benefits, the patient is deemed in satisfactory condition to undergo the procedure. The anesthesia plan is to use general anesthesia. Jackie Ann MD 11/01/2023 documented in this encounter Procedure Notes * Sylvia Andino MD - 11/01/2023 10:35 AM EDTAssociated Order(s): COLONOSCOPY [facility] Patient Name: Beau Schmidt Procedure Date: 11/01/2023 10:35 AM Date of : 1970 Admit Type: Outpatient Note Status: Finalized Date of : 1970 Admit Type: Outpatient Age: 53 Room: Endo 3 Gender: Male Note Status: Finalized Procedure: Colonoscopy Indications: High risk screening: family history of colon polyps in a first- degree relative (dad and brothers) Providers: Jackie Ann MD Patient Profile: Last Colonoscopy: none. The patient's first colonoscopy is today. Referring MD: Sylvia Martinez Medicines: See the Anesthesia note for documentation of the administered medications Complications: No immediate complications. Procedure: Pre-Anesthesia Assessment: - Patient identification and proposed procedure were verified prior to the procedure by the physician, the nurse and the anesthesiologist. The procedure was verified in the pre-procedure area. - Prior to the procedure, a History and Physical was performed, and patient medications, allergies and sensitivities were reviewed. The patient's tolerance of previous anesthesia was reviewed. - The risks and benefits of the procedure and the sedation options and risks were discussed with the patient. All questions were answered and informed consent was obtained. - The medication list for this patient has been reviewed prior to the procedure and has been determined that the patient may proceed with the planned study. Any medication changes made as a result of the findings of this procedure have been discussed with the patient and/or ocean import representative at the time of discharge from the department. - After I obtained informed consent, the scope was passed under direct vision. All instruments were visually inspected immediately before and after removal from the patient to ensure they are fully intact. Throughout the procedure, the patient's blood pressure, pulse, and oxygen saturations were monitored continuously. The CF-CM500O Colonoscope ([id number]) was introduced through the anus and advanced to the terminal ileum. The colonoscopy was performed without difficulty. The patient tolerated the procedure well. The quality of the bowel preparation was adequate to identify polyps 6 mm and larger in size. Findings & Specimens: The examined terminal ileum appeared normal. The examiend colon appeared normal. A 30 mm sessile polyp was found at 15 cm proximal to the anus - the area was examined under NBI. Biopsies were taken with a cold forceps for histology. The pathology specimen was placed into Bottle Number 1. Verification of patient identification for the specimen was done by the physician and nurse using the patient's name and medical record number. The exam was otherwise without abnormality on direct and retroflexion views. Impression: - The examined portion of the terminal ileum appeared normal. - The examined colon appeared normal. - One 30 mm polyp at 15 cm proximal to the anus. Biopsied. - The examination was otherwise normal on direct and retroflexion views. Recommendation: - Await pathology results. - Advanced removal of the large polyp will be scheduled. Jackie Ann MD 11/01/2023 11:17:18 AM This report has been signed electronically. * Sylvia Andino MD - 11/01/2023 10:33 AM EDTAssociated Order(s): UPPER GI ENDOSCOPY [facility] Patient Name: Beau Schmidt Procedure Date: 11/01/2023 10:33 AM Date of : 1970 Admit Type: Outpatient Note Status: Finalized Date of : 1970 Admit Type: Outpatient Age: 53 Room: [facility] 3 Gender: Male Note Status: Finalized Procedure: Upper GI endoscopy Indications: Positive celiac serologies - gliadian Ab + Providers: Jackie Ann MD Referring MD: Sylvia Martinez Medicines: See the Anesthesia note for documentation of the administered medications Complications: No immediate complications. Procedure: Pre-Anesthesia Assessment: - Patient identification and proposed procedure were verified prior to the procedure by the physician, the nurse and the anesthesiologist. The procedure was verified in the pre-procedure area. - Prior to the procedure, a History and Physical was performed, and patient medications, allergies and sensitivities were reviewed. The patient's tolerance of previous anesthesia was reviewed. - The risks and benefits of the procedure and the sedation options and risks were discussed with the patient. All questions were answered and informed consent was obtained. - The medication list for this patient has been reviewed prior to the procedure and has been determined that the patient may proceed with the planned study. Any medication changes made as a result of the findings of this procedure have been discussed with the patient and/or ocean import representative at the time of discharge from the department. - After obtaining informed consent, the endoscope was passed under direct vision. All instruments were visually inspected immediately before and after removal from the patient to ensure they are fully intact. Throughout the procedure, the patient's blood pressure, pulse, and oxygen saturations were monitored continuously. The GIF-H180 Endoscope ([id number]) was introduced through the mouth and advanced to the second part of duodenum. The upper GI endoscopy was accomplished without difficulty. The patient tolerated the procedure well. Findings & Specimens: The examined esophagus appeared normal. Esophagogastric landmarks were identified: the gastroesophageal junction was found at 35 cm from the incisors and appeared normal. The examined stomach appeared normal. Biopsies were taken with a cold forceps for Helicobacter pylori testing. The pathology specimen was placed into Bottle Number 2. The duodenal bulb and second portion of the duodenum appeared normal. Biopsies for histology were taken with a cold forceps for evaluation of celiac disease and histology. The pathology specimen was placed into Bottle Number 1. Verification of patient identification for the specimen was done by the physician and nurse using the patient's name and medical record number. Impression: - Normal esophagus. - Esophagogastric landmarks identified. Normal GE junction. - Normal stomach. Biopsied. - Normal duodenal bulb and second portion of the duodenum. Biopsied. Recommendation: - Await pathology results. - Proceed to colonoscopy. Jackie Ann MD 11/01/2023 11:18:17 AM This report has been signed electronically. documented in this encounter Nursing Notes * Dipak Gracia RN - 11/01/2023 11:28 AM EDT Patient is alert, pain free, passing flatus and tolerating po fluids prior to discharge. Patient has been visited by Dr. Ann. Patient has received and demonstrates understanding of discharge instructions. Patient is transported via w/c to private auto accompanied by endo staff. * Zane Donaldson RN - 11/01/2023 11:16 AM EDT See anesthesia record for medication administered during procedure. Zane Donaldson RN Specimen(s) and location(s) verified with physician post procedure 11:17 AM Zane Donaldson RN Pt ji EGD w/ bx well. Abd soft post proc. To recovery lying on L side w/ HOB elevated. Pre cleaning of scope at the bedside started by facilities operations technician. Pt ji colonoscopy w/ polyp biopsy well. No Abd pressure applied to assist w/ advancement of the scope. Abd soft post proc. To recovery lying on L side. Pre cleaning of scope at the bedside started by facilities operations technician. * Pao Velasco RN - 11/01/2023 10:22 AM EDT The following pt discharge instructions reviewed with pt prior to prodedure: No driving today. No alcohol today. No signing of legal documents. Rest as much as possible today and can return to normal activities tomorrow. No operating any heavy equipment today. Diet as tolerated. Pt verbalized understanding. documented in this encounter Plan of Treatment Upcoming Encounters Date Type Department Care Team (Latest Contact Info) Description 11/17/2023 8:30 AM EDT Office Visit Otolaryngology [facility] [address] [place] [address] Elliot Marti DO [address] [place] [address] 12/06/2023 3:30 PM EDT Imaging Radiology, [address] [place] [address] 01/26/2024 9:07 AM EST Hospital Encounter [facility], Operating Room, [facility] - 4th Floor [address] [place] [address] Nanda Riggs MD [address] [place] [address] 01/26/2024 9:07 AM EST - 01/26/2024 11:07 AM EST Surgery [facility], Operating Room, [facility] - 4th Floor [address] [place] [address] Nanda Riggs MD [address] [place] [address] COLONOSCOPY, FLEXIBLE; WITH ENDOSCOPIC MUCOSAL RESECTION 05/30/2024 11:00 AM EDT Office Visit [address] [phone] Sylvia Andino MD [address] [place], [place] [address] [phone] Pending Results Name Type Priority Associated Diagnoses Date /Time SURGICAL PATHOLOGY Pathology Routine Screening for colon cancer 11/01/2023 11:15 AM EDT Scheduled Orders Name Type Priority Associated Diagnoses Orde r Schedule SURGICAL PATHOLOGY Pathology Routine Screening for colon cancer Release Upon Ordering for 1 Occurrences starting 11/01/2023, 1 completed Scheduled Procedures Name Priority Associated Diagnoses Date/Ti me COLONOSCOPY FLEXIBLE PROXIMA L DIAGNOSTIC Screening for colon cancer 11/01/2023 10:46 AM EDT ESOPHAGOGASTRODUODENOSCOPY ( EGD), FLEXIBLE, TRANSORAL, DIAGNOSTIC Screening for colon cancer 11/01/2023 10:46 AM EDT COLONOSCOPY, FLEXIBLE; WITH ENDOSCOPIC MUCOSAL RESECTION Colon polyp 01/26/2024 9:07 AM EST Health Maintenance Due Date Last [...] 2) 07/21/2023 05/26/2023 COVID-19 Vaccine (1 - 2022-2 4 season) 2023 Influenza Vaccine (FLU shot) (#1) 2023 11/12/2014, 11/05/2008 Lipid Panel 05/25/2028 05/26/2023, 05/05/2012, 02/09/2005 DTap/Tdap Vaccines (3 - Td o r Tdap) 05/25/2033 05/26/2023, 03/13/2011 Colonoscopy 10/31/2033 11/01/2023 Colorectal Cancer Screening 10/31/2033 HPV (Gardasil) Vaccine Aged Out No lo nger eligible based on patient's age to complete this topic MENINGOCOCCAL (MENACTRA/MENVEO) Aged Out No longer eligible b ased on patient's age to complete this topic documented as of this encounter Medical Devices Not on filedocumented as of this encounter Procedures Procedure Name Priority Date/Time Associated Diagnosis Comments COLONOSCOPY 11/01/2023 10:35 AM EDT UPPER GI ENDOSCOPY 11/01/2023 10 :33 AM EDT documented in this encounter Results * COLONOSCOPY (11/01/2023 10:35 AM EDT) 11/01/2023 10:3 5 AM EDT Narrative Procedure Note Sylvia Andino MD - 11/01/2023 10:35 AM EDT [facility] Patient Name: Beau Schmidt Procedure Date: 11/01/2023 10:35 AM Date of : 1970 Admit Type: Outpatient Note Status:Finalized Date of : 1970 Admit Type: Outpatient Age: 53 Room: [facility] 3 Gender: Male Note Status: Finalized Procedure: Colonoscopy Indications: High risk screening: family history of colon polypsin a first- degree relative (dad and brothers) Providers: Jackie Ann MD Patient Profile: Last Colonoscopy: none. The patient's firstcolonoscopy is today. Referring MD: Sylvia Martinez Medicines: See the Anesthesia note for documentation of theadministered medications Complications: No immediate complications. Procedure: Pre-Anesthesia Assessment: - Patient identification and proposed procedurewere verified prior to the procedure by the physician, the nurse and theanesthesiologist. The procedure was verified in the pre-procedure area. - Prior to the procedure, a History and Physicalwas performed, and patient medications, allergies and sensitivities werereviewed. The patient's tolerance of previous anesthesia was reviewed. - The risks and benefits of the procedure and thesedation options and risks were discussed with the patient. All questions wereanswered and informed consent was obtained. - The medication list for this patient has beenreviewed prior to the procedure and has been determined that the patient may proceed with the plannedstudy. Any medication changes made as a result of the findings of this procedure have beendiscussed with the patient and/or ocean import representative at the time of discharge from the[facility] medical center. - After I obtained informed consent, the scope waspassed under direct vision. All instruments were visually inspected immediatelybefore and after removal from the patient to ensure they are fully intact. Throughout the procedure, the patient's bloodpressure, pulse, and oxygen saturations were monitored continuously. The CF-[id number] ([id number]) was introduced through the anus and advanced to the terminalileum. The colonoscopy was performed without difficulty. The patient tolerated theprocedure well. The quality of the bowel preparation was adequate to identify polyps 6mm and larger in size. Findings & Specimens: The examined terminal ileum appeared normal. The examiend colon appeared normal. A 30 mm sessile polyp was found at 15 cm proximal to the anus - thearea was examined under NBI. Biopsies were taken with a cold forceps for histology. The pathologyspecimen was placed into Bottle Number 1. Verification of patient identification for the specimen wasdone by the physician and nurse using the patient's name and medical record number. The exam was otherwise without abnormality on direct and retroflexionviews. Impression: - The examined portion of the terminal ileumappeared normal. - The examined colon appeared normal. - One 30 mm polyp at 15 cm proximal to the anus.Biopsied. - The examination was otherwise normal on directand retroflexion views. Recommendation: - Await pathology results. - Advanced removal of the large polyp will bescheduled. Jackie Ann MD 11/01/2023 11:17:18 AM This report has been signed electronically. Sylvia Martinez MD [facility] * UPPER GI ENDOSCOPY (11/01/2023 10:33 AM EDT) 11/01/2023 10:3 3 AM EDT Narrative Procedure Note Sylvia Andino MD - 11/01/2023 10:33 AM EDT [facility] Patient Name: Beau Schmidt Procedure Date: 11/01/2023 10:33 AM Date of : 1970 Admit Type: Outpatient Note Status:Finalized Date of : 1970 Admit Type: Outpatient Age: 53 Room: [facility] 3 Gender: Male Note Status: Finalized Procedure: Upper GI endoscopy Indications: Positive celiac serologies - gliadian Ab + Providers: Jackie Ann MD Referring MD: Sylvia Martinez Medicines: See the Anesthesia note for documentation of theadministered medications Complications: No immediate complications. Procedure: Pre-Anesthesia Assessment: - Patient identification and proposed procedurewere verified prior to the procedure by the physician, the nurse and theanesthesiologist. The procedure was verified in the pre-procedure area. - Prior to the procedure, a History and Physicalwas performed, and patient medications, allergies and sensitivities werereviewed. The patient's tolerance of previous anesthesia was reviewed. - The risks and benefits of the procedure and thesedation options and risks were discussed with the patient. All questions wereanswered and informed consent was obtained. - The medication list for this patient has beenreviewed prior to the procedure and has been determined that the patient may proceed with the plannedstudy. Any medication changes made as a result of the findings of this procedure have beendiscussed with the patient and/or ocean import representative at the time of discharge from thenea medical center. - After obtaining informed consent, the endoscopewas passed under direct vision. All instruments were visually inspected immediatelybefore and after removal from the patient to ensure they are fully intact. Throughout the procedure, the patient's bloodpressure, pulse, and oxygen saturations were monitored continuously. The GIF-H180 Endoscope([id number]) was introduced through the mouth and advanced to the second part ofduodenum. The upper GI endoscopy was accomplished without difficulty. The patienttolerated the procedure well. Findings & Specimens: The examined esophagus appeared normal. Esophagogastric landmarks were identified: the gastroesophagealjunction was found at 35 cm from the incisors and appeared normal. The examined stomach appeared normal. Biopsies were taken with a coldforceps for Helicobacter pylori testing. The pathology specimen was placed into Bottle Number 2. The duodenal bulb and second portion of the duodenum appeared normal.Biopsies for histology were taken with a cold forceps for evaluation of celiac disease and histology.The pathology specimen was placed into Bottle Number 1. Verification of patient identification for thespecimen was done by the physician and nurse using the patient's name and medical record number. Impression: - Normal esophagus. - Esophagogastric landmarks identified. Normal GEjunction. - Normal stomach. Biopsied. - Normal duodenal bulb and second portion of theduodenum. Biopsied. Recommendation: - Await pathology results. - Proceed to colonoscopy. Jackie Ann MD 11/01/2023 11:18:17 AM This report has been signed electronically. Sylvia Martinez MD [facility]O UPP ER documented in this encounter Visit Diagnoses Diagnosis Screening for colon cancer Special screening for malignant neoplasms, colon Colon polyp Benign neoplasm of colon documented in this encounter Administered Medications Inactive Administered Medications - up to 3 most recent administrations Medication Order MAR Action Action Date Dose Rate Site Acetaminophen (Tylenol) tab 650 mg 650 mg, Oral, PRN Pain, Mild, Starting on Wed11/01/23 at 1125, Until Wed11/01/23 at 1547, For 1 dose, Maximum of 4 grams (4000 mg) per day., Post-op isolyte-S pH 7.4 infusion Intravenous, at 100 mL/hr, Plasma-LYTE 148, isolyte-S, and isolyte-S pH 7.4 are considered equivalent - including for MAR barcode scanning., CONTINUOUS, Starting on Wed11/01/23 at 1045, Until Wed11/01/23 at 1547, Pre-Op Restarted 11/01/2023 11:12 AM EDT Continue from Pre-Op 11/01/2023 10:43 AM EDT 10 0 mL/hr New Bag 11/01/2023 10:26 AM EDT 100 mL/hr documented in this encounter Active and Recently Administered Medications Times are shown in EDT. Continuous Medication Order 10/30/2023 10/31/2023 11/01/2023 isolyte-S pH 7.4 infusion Intravenous, at 100 mL/hr, Plasma-LYTE 148, isolyte-S, and isolyte-S pH 7.4 are considered equivalent - including for MAR barcode scanning., CONTINUOUS, Starting on Wed11/01/23 at 1045, Until Wed11/01/23 at 1547, Pre-Op 1026 (New Bag - Prov ider: Pao Velasco RN)1043 (Continue from Pre-Op - Provider: Valerie Ramsey CRNA)1111 (Paused - Provider: Valerie Ramsey CRNA - Comment: Switch to gravity)1112 (Restarted - Provider: Valerie Ramsey CRNA) PRN Medication Order 10/30/2023 10/31/2023 11/01/2023 Acetaminophen (Tylenol) tab 650 mg 650 mg, Oral, PRN Pain, Mild, Starting on Wed11/01/23 at 1125, Until Wed11/01/23 at 1547, For 1 dose, Maximum of 4 grams (4000 mg) per day., Post-op documented in this encounter Care Teams Preschool Head Teacher Relationship Specialty Start Date End Date Sylvia Andino MD [address] [place] [address] [place] [address] PCP - General Family Medicine 05/26/23 documented as of this encounter
--- OUTSIDE RECORDS SUMMARY | 2024-02-10 08:54 | External Medical Summary ---
Author Name Unknown Address Unknown Organization K01:[facility] [place] - [address] [place] [address] Laboratory Report Ordering Provider Test Date Status RODRIGUEZ,GUSTAVO 11/22/2023 08:42:24 Final Observation Date Value Abnormality Reference (Units ) Status Parathyrin.intact [Mass/volume] in Serum or Plasma 11/22/2023 08:42:24 56 15-65 (pg/mL) Final Performing Location [facility] [place] - [address] [place] [address]
--- OUTSIDE RECORDS SUMMARY | 2024-02-10 08:54 | External Medical Summary | Summary of Care ---
Author Name Unknown Organization [facility] Address [address] [place] [address] Phone [phone] Care Team Providers Care Medical Doctor Md/Medical Director Name Role Phone Sylvia Andino MD Primary Care Prov ider Reason for Visit * Reason Comments New Consultation Parathyroid Encounter Details Date Type Department Care Team (Latest Contact Info) Description 11/16/2023 10:00 AM EDT Telemedicine Endocrinology [address] [place] [address] Liam Kimble MD [address] [place] [address] Hyperparathyroidism (HCC)*; Hypercalcemia; Family history of hyperparathyroidism Allergies No known active allergiesdocumented as of this encounter (statuses as of 11/16/2023) Medications No known medicationsdocumented as of this encounter (statuses as of 11/16/2023) Active Problems Problem Noted Date Diagnosed Date 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 Tobacco use disorder documented as of this encounter (statuses as of 11/16/2023) Immunizations Name Administration Dates Next Due Pneumococcal [...] Progress Notes * Liam Kimble MD - 11/16/2023 9:54 AM EDT Images from the original note were not included. Patient location: HOME. I was in a hospital or clinic location. After connecting through [employer],patient was verified with two unique identifiers. Patient (or authorized legal freight representative) was then informed that this was a Telemedicine visit and being conducted confidentially over secure lines. Methods to assure confidentiality were taken. Patient acknowledged consent and understanding of pr ivacy and security of the Telemedicine visit. The patient agreed to participate. Referring provider: Sylvia Rubin MD Reason for referral/chief complaint: Hypercalcemia Date of service: 11/16/2023 History of present illness: This is a pleasant 53-year-old gentleman who is referred to Endocrinology for evaluation of hypercalcemia with concern for primary hyperparathyroidism. He has family history of hyperparathyroidism as well with father and older brother requiring parathyroid surgery. His father had bladder stones as well. Beau has 2 daughters and 1 son. Per patient, none of them have any calcium related disorders. There is no personal or family history of pituitary tumors, pancreatic tumors, thyroid tumors/medullary thyroid cancer, adrenal tumors/pheochromocytoma. He reports excellent energy levels. Denies mood issues, sleep disorder or memory problems. He reports irregular bowel movements with out nausea, vomiting or abdominal pain. No history of pancreatitis. He had ulcer in his stomach at age 5. He reports polyuria. Denies hematuria or history of kidney stones. Denies flank pain. He denies spells of anxiety, headaches, diaphoresis, palpitations or panic attacks. He does not have personal history of hypertension or ASCVD. He reports arthralgias with out myalgias. No history of fragility fractures. No history of primary or metastatic malignancy. He smokes about half pack of cigarettes daily. No history of lymphoproliferative disorders or granulomatous conditions. No history of adrenal insufficiency. Denies being on thiazides, lithium or vit A. Current calcium and vitamin-D intake: Centrum silver men once daily 2-3 glasses of milk daily Cheese few times a week Denies taking Tums or Rolaids He denies noticing any lower neck swelling, swallowing difficulty, painful swallowing or change in voice. Denies any hyperthyroid or hypothyroid symptoms. He denies headaches or peripheral visual field cuts. No galactorrhea. No lightheadedness, dizzinessor passing out spells. Now Change in glove or shoe size. Denies skin fragility or symptoms of myopathy. Denies significant weight exchange consultant past 12 months. Past Medical History: Diagnosis Date Fracture of [...] performed by Jackie Ann MD at ENDOSCOPY [facility] EGD, FLEXIBLE, DIAGNOSTIC 11/01/2023 esophagogastric landmarks/biopsies normal/ESOPHAGOGASTRODUODENOSCOPY (EGD), FLEXIBLE, TRANSORAL, DIAGNOSTIC performed by Jackie Ann MD at [facility] Family History Problem Relation Name Age of Onset Diabetes Father Social History Socioeconomic History Marital status: Single Spouse name: Not on file Number of children: 3 Years of education: Not on file Highest education level: Not on file Occupational History Occupation: restaurant line cook Employer: [employer] Comment: [employer] Tobacco Use Smoking status: Every Day Current packs/day: 0.50 Average packs/day: 0.5 packs/day for 26.0 years (13.0 ttl pk-yrs) Types: Cigarettes Smokeless tobacco: Never Tobacco comments: age 16 Substance and Sexual Activity Alcohol use: Not Currently Comment: quit 5 years ago ( 2018) Drug use: No Sexual activity: Not on file Other Topics Concern Service Yes Comment: 14 years in [employer] Not Asked Caffeine Concern Not Asked Occupational Exposure Not Asked Hobby Hazards Not Asked Sleep Concern Not Asked Stress Concern Not Asked Weight Concern Not Asked Special Diet Not Asked Back Care Not Asked Exercise Not Asked Bike Helmet Not Asked Seat Belt Not Asked Self-Exams Not Asked Social History Narrative Works at [employer]. Social Determinants of Health Financial Resource Strain: Low Risk (05/19/2023) Financial Resource Strain Do you have any trouble paying for your medications, or do you think you might in the future? (Adult - for ages 18 years and over): No Does your family have trouble paying for medicine? (Household - for ages 0-17 years): Not on file Food Insecurity: No Food Insecurity (05/19/2023) Food Insecurity Do you need food for this week? (Adult - for ages 18 years and over): No Are you able to get enough food for your family? (Household - for ages 0-17 years): Not on file Does your family need food this week? (Household - for ages 0-17 years): Not on file Do you always have enough food for your family? (Household - for ages 0-17 years): Not on file Transportation Needs: No Transportation Needs (05/19/2023) Transportation Needs Do you have trouble getting a ride to medical visits or work? (Adult - for ages 18 years and over):Never True Does your family have a hard time getting a ride to doctors visits? (Household - for ages 0-17 years): Not on file Has lack of transportation kept you from medical appointments, meetings, work, or from getting things needed for daily living? Check all that apply. (Adult - for ages 18 years and over): Not on file Do you (or your family) have trouble finding or paying for a ride (transportation)? (Household - for ages 0-17 years): Not on file Social Connections: Socially Integrated (05/19/2023) Social Connections How often do you feel lonely or isolated from those around you? (Adult - for ages 18 years and over): Never Housing Stability: Low Risk (05/19/2023) Housing Stability Do you currently live in a residential or have no steady place to sleep at night? (Adult - for ages 18 years and over): No Do you think you are at risk of becoming homeless? (Adult - for ages 18 years and over): No Does your family worry about paying for your home or becoming homeless? (Household - for ages 0-17 years): Not on file Are you homeless or worried that you might be in the future? (Adult - for ages 18 years and over): Not on file Are you (or your family) homeless or worried that you might be in the future? (Household - for ages0-17 years): Not on file No current outpatient medications on file. No current facility-administered medications for this visit. Review of patient's allergies indicates: No Known Allergies Review of systems: As per HPI. Others reviewed and noted to be negative Physical examination: Wt Readings from Last 5 Encounters: 11/05/23 69.6 kg (153 lb 8 oz) 11/01/23 71.2 kg (157 lb) 05/26/23 71.2 kg (157 lb) 03/29/19 72.7 kg (160 lb 3.2 oz) 09/20/15 67.6 kg (149 lb) Constitutional: Appears well and appropriate for his age. Eyes: No apparent Periorbital puffiness. Neck: No visible large goiter. Respiratory: Patient is able to speak in complete sentences. Musculoskeletal: Intact range of motion at upper extremities Neuro: AAO X3. Recent and remote memory intact. Psych: Patient makes goodeye contact. Speech noted to be normal. Records: Pathology reports: 11/01/2023 Labs: Latest Reference Range & Units 02/09/05 15:05 05/05/12 08:05 03/13/15 11:54 09/20/15 13:45 05/26/23 12:28 06/02/23 08:16 06/28/23 08:22 07/14/23 09:37 EGFR >=60 mL/min >60.0 >60.0 >60.0 >90 CALCIUM 8.4 - 10.2 mg/dL 10.3 9.8 10.3 (H) 10.7 (H) Calcium, Ionized 1.13 - 1.32 mmol/L 1.37 (H) 1.36 (H) PTH 15 - 65 pg/mL 45 1,25-DIHYDROXY VITAMIN D 58 25-Hydroxy Vitamin D >19 ng/mL 32 HGB 14.0 - 16.8 g/dL 15.0 15.0 14.4 HCT 40.0 - 48.4 % 43.0 44.2 42.1 Albumin 3.8 - 5.0 g/dL 4.2 4.4 4.7 4.5 Alkaline Phosphatase 35 - 130 U/L 73 74 84 74 Calcium, 24 Hour Urine 0.05 - 0.30 g/24 hours 0.26 Creatinine, Urine 24 Hour 1.000 - 2.000 g/24 hours 1.500 Urine Volume mL mL 1,500 1,500 Fractional excretion of calcium is calculated to be= 0.011 Imaging: Parathyroid SPECT CT 08/10/2023 FINDINGS PLANAR IMAGING: Normal thyroid and salivary gland activity on the immediate images. Significant washout of radiotracer from the thyroid on delayed images with persistent activity at the inferior right thyroid gland. SPECT/FUSION: Focal increased activity posterior to the right inferior thyroid lobe, correlating with a 13 x 7 mmnodule in the right tracheoesophageal groove. ADDITIONAL CT FINDINGS: Hypoventilatory changes within the lungs. Degenerative changes of the visualized spine. Coronary artery calcifications. IMPRESSION Parathyroid adenoma posterior to the inferior aspect of the right thyroid lobe. DEXA scan: Pending for 12/06/[address] Neck: Pending for 12/05/2023 Ultrasound head and neck: None Ultrasound renal: None Assessment & Plan Hyperparathyroidism (HCC) (Primary) - BASIC METABOLIC PANEL; Future; Expected date: 11/17/2023 - ALBUMIN; Future; Expected date: 11/17/2023 - PHOSPHORUS; Future; Expected date: 11/17/2023 - PTH; Future; Expected date: 11/17/2023 - US HEAD AND NECK; Future; Expected date: 11/16/2023 - DEXA SCAN/BONE MINERAL AXIAL; Future; Expected date: 11/16/2023 Hypercalcemia - GASTRIN, SERUM; Future; Expected date: 11/17/2023 Family history of hyperparathyroidism - CALCITONIN; Future; Expected date: 11/17/2023 - CEA; Future; Expected date: 11/17/2023 - METANEPHRINES, FRACTIONATED, FREE, LCMSMS, PLASMA; Future; Expected date: 11/17/2023 - PROLACTIN; Future; Expected date: 11/17/2023 Comments: Patient is suspected to have PTH mediated hypercalcemia (elevated corrected serum calcium + elevated ionized calcium + nonsuppressed PTH ) suggestive of primary hyperparathyroidism. No HCTZ/lithium on board. Hypercalcemia symptoms: Minimal if any Other etiologies of hypercalcemia including HHM (humoral hypercalcemia of malignancy), hypercalcemia from lymphoproliferative disorders, multiple myeloma, vitamin-D intoxication, milk alkali syndromeare unlikely due to fact that patient has PTH mediated hypercalcemia rather than non PTH mediated hy percalcemia. 24 hour urine calcium was not elevated. Fractional excretion of calcium noted to be 0.01. There is family history of primary hyperparathyroidism in father and older brother requiring parathyroid surgery. I can not completely rule out possibility of FHH though prior normal calcium makes it slightly less likely. There is no personal or family history of pituitary tumors, pancreatic tumors, medullary thyroid cancer or pheochromocytoma. He does not have any signs or symptoms suggestive of pituitary tumors, pancreatic tumors or pheochromocytoma, though, given his family history of pHPT, worth evaluating familial forms of primary hyperparathyroidism. Plan: Etiology, pathophysiology, diagnostic and therapeutic options for management of primary hyperparathyroidism has been discussed with patient. Next step in management of this patient is to determine whether he is a candidate for surgical management of primary hyperparathyroidism or not. Criteria: 1. Age less than 50: No 2. GFR less than 60: No 3. History of nephrolithiasis: No 4. 24 hour urine calcium more than 400 mg per day: No. Fractional excretion of calcium noted to be 0.01. He held his dietary calcium and multivitamin for 2 weeks prior to testing. 5. History of fragility fractures: No. 6. Evidence of osteoporosis on DEXA scan: No prior DEXA scan available for review. I have ordered DEXA scan with request to include distal 1/3 of radius of nondominant forearm in study 7. Corrected serum calcium more than 1 mg/dL above upper limit of normal: No Based on above, patient yet has not convincingly met criteria for surgical management of primary hyperparathyroidism. He had parathyroid SPECT CT which raised possibility of right inferior parathyroid adenoma. Four dimensional CT neck scheduled for December 05, 2023. I have suggested to hold off on pursuing 4 [address] neck until above workup is completed. If, DEXA scan shows osteoporosis, then can pursue [address] neck for parathyroid localization prior to proceeding parathyroid surgery. If, DEXA scan does not show osteoporosis then watchful monitoring with yearly evaluation with BMP, PTH, phosphorus, 25 hydroxy vitamin-D and 24 hour urine calcium will be a reasonable thing to do. Patient is agreeable with this plan of care. He has been advised to keep himself well hydrated. He can take 3 servings of dietary calcium daily. He can take 1000 IU of vitamin D3 daily. Amid concerns for familial form of primary hyperparathyroidism, I have ordered workup to check plasma metanephrine, serum plasma gastrin, calcitonin, CEA and ultrasound head and neck. If based on that workup, there is suspicion for MEN syndrome, I will refer him to genetic clinic for genetic testing Follow-up: 3 months or sooner if needed This chart was completed in part utilizing [employer] Speech Voice Recognition Software. Grammatical errors, random word insertions, pronoun errors, and incomplete sentences are an occasional consequence of this system due to software limitations, ambient noise, and hardware issues. Any formal questions or concerns about the content, text, or information contained within the body of this dictation should be directly addressed to the provider for clarification. Thanks very much for allowing me to assist with this patient's care. Please do not hesitate to contact, in case of any questions or concerns. Liam Kimble MD [place] [address] This chart was completed in part utilizing [employer] Voice Recognition Software. Grammatical errors, random word insertions, pronoun errors, and incomplete sentences are an occasional consequence of this system due to software limitations, ambient noise, and hardware issues. Any formal questions or concerns about the content, text, or information contained within the body of this dictation should be directly addressed to the provider for clarification. CC:Sylvia Rubin MD CC: Elliot Marti DO, FACS documented in this encounter Plan of Treatment Upcoming Encounters Date Type Department Care Team (Latest Contact Info) Description 12/06/2023 3:30 PM EDT Imaging Radiology, [address] [place], [place] [address] 12/07/2023 10:00 AM EDT Imaging Radiology [address] [place] [address] 12/14/2023 1:00 PM EDT Office Visit Otolaryngology [facility] [address] [place] [address] Elliot Marti DO [address] [place] [address] 01/26/2024 9:13 AM EST Hospital Encounter OR [facility], Operating Room, [facility] - 4th Floor [address] [place] [phone] Nanda Riggs MD [address] [place] [address] 01/26/2024 9:13 AM EST - 01/26/2024 11:13 AM EST Surgery OR [facility], Operating Room, [facility] - 4th Floor [address] [place] [phone] Nanda Riggs MD [address] [place] [address] COLONOSCOPY, FLEXIBLE; WITH ENDOSCOPIC MUCOSAL RESECTION 05/31/2024 11:00 AM EDT Office Visit [address] [place] [phone] Sylvia Andino MD [address] [place] [address] [place] [address] Scheduled Orders Name Type Priority Associated Diagnoses Orde r Schedule BASIC METABOLIC PANEL Lab Routine Hyperparathyroidism (HCC) Expected: 11/17/2023 (Approximate), Expires: 11/15/2024 ALBUMIN Lab Routine Hyperparathyroidism (HCC) Expected: 11/17/2023 (Approximate), Expires: 11/15/2024 PHOSPHORUS Lab Routine Hyperparathyroidism (HCC) Expected: 11/17/2023 (Approximate), Expires: 11/15/2024 PTH Lab Routine Hyperparathyroidism (HCC) Expected: 11/17/2023 (Approximate), Expires: 11/15/2024 CALCITONIN Lab Routine Family history of hyperparathyroidism Expected: 11/17/2023 (Approximate), Expires: 11/15/2024 CEA Lab Routine Family history of hyperparathyroidism Expected: 11/17/2023 (Approximate), Expires: 11/15/2024 METANEPHRINES, FRACTIONATED, FREE, LCMSMS, PLASMA Lab Routine Family history of hyperparathyroidism Expected: 11/17/2023 (Approximate), Expires: 11/15/2024 PROLACTIN Lab Routine Family history of hyperparathyroidism Expected: 11/17/2023 (Approximate), Expires: 11/15/2024 GASTRIN, SERUM Lab Routine Hypercalcemia Expected: 11/17/2023 (Approximate), Expires: 11/15/2024 US HEAD AND NECK Medical Imaging Routine Hyperparathyroidism (HCC) Expected: 11/16/2023 (Approximate), Expires: 12/15/2024 DEXA SCAN/BONE MINERAL AXIAL Medical Imaging Routine Hyperparathyroidism (HCC) Expected: 11/16/2023 (Approximate), Expires: 12/15/2024 Scheduled Procedures Name Priority Associated Diagnoses Date/Ti me COLONOSCOPY, FLEXIBLE; WITH ENDOSCOPIC MUCOSAL RESECTION Colon polyp 01/26/2024 9:13 AM EST Health Maintenance Due Date Last [...] 10/31/2033 11/01/2023, 11/01/2023 Colorectal Cancer Screening 10/31/2033 HPV (Gardasil) Vaccine Aged Out No lo nger eligible based on patient's age to complete this topic MENINGOCOCCAL (MENACTRA/MENVEO) Aged Out No longer eligible b ased on patient's age to complete this topic documented as of this encounter Medical Devices Not on filedocumented as of this encounter Visit Diagnoses Diagnosis Hyperparathyroidism (HCC)- Primary Hyperparathyroidism, unspecified Hypercalcemia Family history of hyperparathyroidism Family history of other endocrine and metabolic diseases Colon polyp Benign neoplasm of colon documented in this encounter Care Teams Medical Doctor Md/Medical Director Relationship Specialty Start Date End Date Sylvia Andino MD [address] [place] [address] [place] [phone] PCP - General Family Medicine 05/26/23 documented as of this encounter
--- OUTSIDE RECORDS SUMMARY | 2024-02-10 08:54 | External Medical Summary ---
Author Name Unknown Address Unknown Organization K01:[facility] [address] [place] [address] Laboratory Report Ordering Provider Test Date Status GUSTAVO RODRIGUEZ 11/22/2023 08:42:24 Final Observation Date Value Abnormality Reference (Units ) Status CEA 11/22/2023 08:42:24 1.6 <=5.2 (ng/ mL) Final Performing Location [facility] - [address] [place] [address]
--- OUTSIDE RECORDS SUMMARY | 2024-02-10 08:54 | External Medical Summary ---
Author Name Unknown Address Unknown Organization K01:[facility] [address] [place] [address] Laboratory Report Ordering Provider Test Date Status RODRIGUEZ,GUSTAVO 11/22/2023 08:42:24 Final Observation Date Value Abnormality Reference (Units ) Status Phosphate 11/22/2023 08:42:24 3.9 2.5-4.8 (m g/dL) Final Performing Location [facility] - [address] [place] [address]
--- OUTSIDE RECORDS SUMMARY | 2024-02-10 08:54 | External Medical Summary | Summary of Care ---
Author Name Unknown Organization [facility] Address [address] [facility] [place] [address] Phone [phone] Care Team Providers Care Sheet Combining Operator Name Role Phone Sylvia Andino MD Primary Care Prov ider Reason for Visit * Reason Comments Outpatient Testing Encounter Details Date Type Department Care Team (Latest Contact Info) Description 11/22/2023 8:50 AM EDT Laboratory Laboratory [address] [place] [phone] [place] [address] Hyperparathyroidism (HCC); Family history of hyperparathyroidism; Hypercalcemia Allergies No known active allergiesdocumented as of this encounter (statuses as of 11/22/2023) Medications No known medicationsdocumented as of this encounter (statuses as of 11/22/2023) Active Problems Problem Noted Date Diagnosed Date 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 Tobacco use disorder documented as of this encounter (statuses as of 11/22/2023) Immunizations Name Administration Dates Next Due Pneumococcal [...] on file documented as of this encounter Plan of Treatment Upcoming Encounters Date Type Department Care Team (Latest Contact Info) Description 12/06/2023 3:30 PM EDT [address] Radiology, [address] [address] 12/07/2023 10:00 AM EDT Imaging Radiology [facility] 1st [facility] [address] [place] [address] 12/14/2023 1:00 PM EDT Office Visit Otolaryngology [facility] [address] [place] [address] Elliot Marti DO [address] [place] [address] 01/26/2024 9:13 AM EST Hospital Encounter OR [facility], Operating Room, [facility] - 4th Floor [address] [place] [phone] Nanda Riggs MD [address] [place] [address] 01/26/2024 9:13 AM EST - 01/26/2024 11:13 AM EST Surgery OR [facility], Operating Room, [facility] - 4th Floor [address] [place] [address] Nanda Riggs MD [address] [place] [address] COLONOSCOPY, FLEXIBLE; WITH ENDOSCOPIC MUCOSAL RESECTION 05/31/2024 11:00 AM EDT Office Visit Family Medicine [address] [place] [phone] Sylvia Andino MD [address] [place] [address] [place] [address] Pending Results Name Type Priority Associated Diagnoses Date /Time BASIC METABOLIC PANEL Lab Routine Hyperparathyroidism ([facility]) 11/22/2023 8:42 AM EDT ALBUMIN Lab Routine Hyperparathyroidism ([facility]) 11/22/2023 8:42 AM EDT PHOSPHORUS Lab Routine Hyperparathyroidism ([facility]) 11/22/2023 8:42 AM EDT PTH Lab Routine Hyperparathyroidism ([facility]) 11/22/2023 8:42 AM EDT CALCITONIN Lab Routine Family history of hyperparathyroidism 11/22/2023 8:42 AM EDT CEA Lab Routine Family history of hyperparathyroidism 11/22/2023 8:42 AM EDT METANEPHRINES, FRACTIONATED, FREE, LCMSMS, PLASMA Lab Routine Family history of hyperparathyroidism 11/22/2023 8:42 AM EDT PROLACTIN Lab Routine Family history of hyperparathyroidism 11/22/2023 8:42 AM EDT GASTRIN, SERUM Lab Routine Hypercalcemia 11/22/2023 8:42 AM EDT Scheduled Procedures Name Priority Associated Diagnoses Date/Ti [...] of this encounter Visit Diagnoses Diagnosis Hyperparathyroidism (HCC) Hyperparathyroidism, unspecified Family history of hyperparathyroidism Family history of other endocrine and metabolic diseases Hypercalcemia Colon polyp Benign neoplasm of colon documented in this encounter Care Teams Sheet Combining Operator Relationship Specialty Start Date End Date Sylvia Andino MD [address] [place] [address] [place] [phone] PCP - General Family Medicine 05/26/23 documented as of this encounter
--- OUTSIDE RECORDS SUMMARY | 2024-02-10 08:54 | External Medical Summary | Summary of Care ---
Author Name Unknown Organization [facility] Address [address] [facility] [place] [address] Phone [phone] Care Team Providers Care Warehouse Forklift Operator Name Role Phone Sylvia Andino MD Primary Care Prov ider Encounter Details Date Type Department Care Team (Late st Contact Info) Description 11/01/2023 Telephone ENDO [facility], Endoscopy Room [facility] [address] [place] [address] Jackie Ann MD [address] [place] [address] [place] [address] Allergies No known active allergiesdocumented as of [...] encounter Miscellaneous Notes * Telephone Encounter - Rosa Ford OSA - 11/01/2023 1:57 PM EDT EMR 01/25 * Telephone Encounter - Nanda Riggs MD - 11/01/2023 1:29 PM EDT Please schedule colonoscopy with EMR with me next available at [facility], can be done within 3 months, rectosigmoid polyp, needs total of 2 hrs. * Telephone Encounter - Rosa Ford OSA - 11/01/2023 11:[address] Riggs, please advise. * Telephone Encounter - Jackie Ann MD - 11/01/2023 11:26 AM EDT Patient had his initial colonoscopy done at [facility] by me today 11/01/23 for a family history of polyps (dad, brothers) He has a large polyp at 15 cm from the anus that will need advanced removal. He is aware of the recall flex sig/colon for the advanced removal. Dr. Riggs was also present and saw the polyp and agreed that it will need a more extensive removal, emr or esd. Please schedule recall flex sig (as it is locatedat 15 cm from the anus) or full colonoscopy (at Dr. Riggs's discretion) within the next 6 months if possible. documented in this encounter Plan of Treatment Upcoming Encounters Date Type Department Care Team (Latest Contact Info) Description 11/17/2023 8:30 AM EDT Office Visit Otolaryngology [facility] [address] [place] [address] Elliot Marti DO [address] [place] [address] 12/06/2023 3:30 PM EDT Imaging Radiology, [address] [place] [address] 01/26/2024 9:07 AM EST Hospital Encounter OR [facility], Operating Room, [facility] - 4th Floor [address] [place] [address] Nanda Riggs MD [address] [place] [address] 01/26/2024 9:07 AM EST - 01/26/2024 11:07 AM EST Surgery OR [facility], Operating Room, [facility] - 4th Floor [address] [place] [address] Nanda Riggs MD [address] [place] [address] COLONOSCOPY, FLEXIBLE; WITH ENDOSCOPIC MUCOSAL RESECTION 05/30/2024 11:00 AM EDT Office Visit Family Medicine [address] [place] [phone] Sylvia Andino MD [address] [place] [address] [place] [address] Scheduled Procedures Name Priority Associated Diagnoses Date/Ti [...] filedocumented as of this encounter Care Teams Warehouse Forklift Operator Relationship Specialty Start Date End Date Sylvia Andino MD [address] [place] [address] [place] [address] PCP - General Family Medicine 05/26/23 documented as of this encounter
--- OUTSIDE RECORDS SUMMARY | 2024-02-10 08:54 | External Medical Summary ---
Author Name Unknown Address Unknown Organization : Laboratory Report Ordering Provider Test Date Status GUSTAVO RODRIGUEZ 11/22/2023 08:42:24 Final Observation Date Value Abnormality Reference (Units ) Status Gastrin 11/22/2023 08:42:24 <15 <=100 (pg/ mL) Final Reference range applies to f asting specimens only.
For additional information, please refer to
[email or web address]
(This link is being provided for informational/
educational purposes only.)

Test Performed at:
[facility]
[address] [facility]
[place] [address]
Dylan Dupree M.D., Ph.D.,Director of Laboratories Performing Location
--- OUTSIDE RECORDS SUMMARY | 2024-02-10 08:54 | External Medical Summary ---
Author Name Unknown Address Unknown Organization K01:[facility] [place] [address] [place] [address] Laboratory Report Ordering Provider Test Date Status GUSTAVO RODRIGUEZ 11/22/2023 08:42:24 Final Observation Date Value Abnormality Reference (Units ) Status BUN 11/22/2023 08:42:24 18 6-20 (mg/dL) Final Creatinine 11/22/2023 08:42:24 0.8 0.6-1.2 (mg/dL) Final Glomerular filtration rate/1.73 sq M.predicted [Volume Rate/Area] in Serum, Plasma or Blood by Creatinine-based formula (CKD-EPI) 11/22/2023 08:42:24 >90 >=60 (mL/min) Final eGFR is calculated based on the CKD-EPI 2020 equation. Sodium 11/22/2023 08:42:24 142 135-146 (m mol/L) Final Potassium 11/22/2023 08:42:24 4.3 3.5-5.1 (m mol/L) Final Cl 11/22/2023 08:42:24 107 98-107 (mm ol/L) Final CO2 11/22/2023 08:42:24 25 22-32 (mmo l/L) Final Anion gap 11/22/2023 08:42:24 10 7-15 (mmol /L) Final Glucose 11/22/2023 08:42:24 99 70-120 (mg /dL) Final Calcium 11/22/2023 08:42:24 10.5 Above high normal 8. 4-10.2 (mg/dL) Final Performing Location [facility] [place] [address] [place] [address]
--- OUTSIDE RECORDS SUMMARY | 2024-02-10 08:54 | External Medical Summary | Summary of Care ---
Author Name Unknown Organization [facility] Address [address] [facility] [place] [address] Phone [phone] Care Team Providers Care Field Cane Scaler Name Role Phone Sylvia Andino MD Primary Care Prov ider Encounter Details Date Type Department Care Team (Late st Contact Info) Description 11/01/2023 Telephone ENDO [facility], Endoscopy Room [facility] [address] [place] [address] Jackie Ann MD [address] [place] [address] [place] [address] Allergies No known active [...] encounter Miscellaneous Notes * Telephone Encounter - Nanda Riggs MD - 11/01/2023 1:29 PM EDT Please schedule colonoscopy with EMR with me next available at [facility], can be done within 3 months, rectosigmoid polyp, needs total of 2 hrs. * Telephone Encounter - Rosa Ford OSA - 11/01/2023 11:[address] Riggs, please advise. * Telephone Encounter - Jackie Ann MD - 11/01/2023 11:26 AM EDT Patient had his initial colonoscopy done at [facility] by me today 11/01/23 for a [...] Care Team (Late st Contact Info) Description 11/17/2023 8:30 AM EDT Office Visit Otolaryngology [facility] [address] [place] [address] Elliot Marti DO [address] [place] [address] 12/06/2023 3:30 PM EDT Imaging Radiology, [address] [place] [address] 05/30/2024 11:00 AM EDT Office Visit Family Medicine [address] [place] [phone] Sylvia Andino MD [address] [place] [address] [place] [address] Scheduled Procedures Name Priority Associated Diagnoses Date/Ti me COLONOSCOPY FLEXIBLE PROXIMA L DIAGNOSTIC Screening for colon cancer 11/01/2023 10:46 AM EDT ESOPHAGOGASTRODUODENOSCOPY ( EGD), FLEXIBLE, TRANSORAL, DIAGNOSTIC Screening for colon cancer 11/01/2023 10:46 AM EDT Health Maintenance Due Date Last Done Comments [...] filedocumented as of this encounter Care Teams Field Cane Scaler Relationship Specialty Start Date End Date Sylvia Andino MD [address] [place] [address] [place] [phone] PCP - General Family Medicine 05/26/23 documented as of this encounter
--- OUTSIDE RECORDS SUMMARY | 2024-02-10 08:54 | External Medical Summary | Summary of Care ---
Author Name Unknown Organization [facility] Address [address] [place] [address] Phone [phone] Care Team Providers Care Balance Sheet Analyst Name Role Phone Sylvia Andino MD Primary Care Prov ider Reason for Visit * Reason Onset Date Comments Appointment 11/09/2023 Encounter Details Date Type Department Care Team (Late st Contact Info) Description 11/09/2023 Telephone Endocrinology, [place] [address] [place] [address] Liam Kimble MD [address] [place] [address] Appointment Allergies No known active allergiesdocumented as of this encounter (statuses as of 11/09/2023) Medications No known medicationsdocumented as of this encounter (statuses as of 11/09/2023) Active Problems Problem Noted Date Diagnosed Date 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 Tobacco use disorder documented as of this encounter (statuses as of 11/09/2023) Immunizations Name Administration Dates Next Due Pneumococcal [...] encounter Miscellaneous Notes * Telephone Encounter - Bianca Vidal OSA - 11/09/2023 9:05 AM EDT LMAM for pt to schedule initial appt; included number for Scheduling documented in this encounter Plan of Treatment Upcoming Encounters Date Type Department Care Team (Latest Contact Info) Description 12/06/2023 3:30 PM EDT Imaging Radiology, [address] [place] [address] 12/07/2023 10:00 AM EDT Imaging Radiology [facility] [address] [place] [address] 12/14/2023 1:00 PM EDT Office Visit Otolaryngology [facility] [address] [place] [address] Elliot Marti DO [address] [place] [address] 01/26/2024 9:13 AM EST Hospital Encounter OR [facility], Operating Room, [facility] - 4th Floor [address] [place] [address] Nanda Riggs MD [address] [place] [address] 01/26/2024 9:13 AM EST - 01/26/2024 11:13 AM EST Surgery OR [facility], Operating Room, [facility] - 4th Floor [address] [place] [phone] Nanda Riggs MD [address] [place] [address] COLONOSCOPY, FLEXIBLE; WITH ENDOSCOPIC MUCOSAL RESECTION 05/31/2024 11:00 AM EDT Office Visit [address] [place] [phone] Sylvia Andino MD [address] [place] [address] [place] [phone] Scheduled Procedures Name Priority Associated Diagnoses Date/Ti [...] filedocumented as of this encounter Care Teams Balance Sheet Analyst Relationship Specialty Start Date End Date Sylvia Andino MD [address] [place] [address] [place] [phone] PCP - General Family Medicine 05/26/23 documented as of this encounter
--- OUTSIDE RECORDS SUMMARY | 2024-02-10 08:54 | External Medical Summary | Summary of Care ---
Author Name Unknown Organization [facility] Address [address] [place] [address] Phone [phone] Care Team Providers Care Supervisory Historian Name Role Phone Sylvia Andino MD Primary Care Prov ider Encounter Details Date Type Department Care Team (Late st Contact Info) Description 12/13/2023 Telephone Endocrinology, [place] [address] [place], [place] [phone] Liam Kimble MD [address] [place], [place] [phone] Allergies No known active allergiesdocumented as of [...] Department Care Team (Latest Contact Info) Description 12/14/2023 1:00 PM EDT Office Visit Otolaryngology [facility] [address] [place] [address] Elliot Marti DO [address] [place] [address] 01/26/2024 9:48 AM EST Hospital Encounter OR [facility], Operating Room, [facility] - 4th Floor [address] [place] [phone] Nanda Riggs MD [address] [place] [address] 01/26/2024 9:48 AM EST - 01/26/2024 11:48 AM EST Surgery OR [facility], Operating Room, [facility] - 4th Floor [address] [place] [address] Nanda Riggs MD [address] [place] [address] COLONOSCOPY, FLEXIBLE; WITH ENDOSCOPIC MUCOSAL RESECTION 05/31/2024 11:00 AM EDT Office Visit [address] [place] [phone] Sylvia Andino MD [address] [place] [address] [place] [address] Scheduled Orders Name Type Priority Associated Diagnoses [...] D LEVEL ONCE IN A LIFETIME-USE SMARTSET# 22585 Completed 06/28/2023 HPV (Gardasil) Vaccine Aged Out [...] Primary Colon polyp Benign neoplasm of colon documented in this encounter Care Teams Supervisory Historian Relationship Specialty Start Date End Date Sylvia Andino MD [address] [place] [address] [place] [phone] PCP - General Family Medicine 05/26/23 documented as of this encounter
--- OUTSIDE RECORDS SUMMARY | 2024-02-10 08:54 | External Medical Summary | Summary of Care ---
Author Name Unknown Organization [facility] Address [address] [facility] [place] [address] Phone [phone] Care Team Providers Care Top Dyeing Machine Loader Name Role Phone Sylvia Andino MD Primary Care Prov ider Encounter Details Date Type Department Care Team (Late st Contact Info) Description 12/07/2023 Telephone [address] [place] [phone] Sylvia Andino MD [address] [place] [address] [place] [address] Allergies No known active allergiesdocumented as of this encounter (statuses as of 12/10/2023) Medications No known medicationsdocumented as of this encounter (statuses as of 12/10/2023) Active Problems Problem Noted Date Diagnosed Date Parathyroid adenoma 12/07/2023 Other osteoporosis without current pathological fracture 12/07/2023 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 Tobacco use disorder documented as of this encounter (statuses as of 12/10/2023) Immunizations Name Administration Dates Next Due Pneumococcal [...] encounter Miscellaneous Notes * Telephone Encounter - Sylvia Andino MD [...] 12/14/2023 1:00 PM EDT Office Visit Otolaryngology [facility] [address] [place] [address] Elliot Marti, [address] [place] [address] 01/26/2024 9:48 AM EST Hospital Encounter OR [facility], Operating Room, [facility] - 4th Floor [address] [place] [address] Nanda Riggs MD [address] [place] [address] 01/26/2024 9:48 AM EST - 01/26/2024 11:48 AM EST Surgery OR [facility], Operating Room, [facility] - 4th Floor [address] [place] [phone] Nanda Riggs MD [address] [place] [address] COLONOSCOPY, FLEXIBLE; WITH ENDOSCOPIC MUCOSAL RESECTION 05/31/2024 11:00 AM EDT Office Visit Family Medicine [address] [place] [phone] Sylvia Andino MD [address] [place] [address] [place] [address] Scheduled Procedures Name Priority Associated Diagnoses Date/Ti [...] D LEVEL ONCE IN A LIFETIME-USE SMARTSET# [id number] Completed 06/28/2023 HPV (Gardasil) Vaccine Aged Out No lo nger eligible based on patient's age to complete this topic MENINGOCOCCAL (MENACTRA/MENVEO) Aged Out No longer eligible b ased on patient's age to complete this topic documented as of this encounter Medical Devices Not on filedocumented as of this encounter Care Teams Top Dyeing Machine Loader Relationship Specialty Start Date End Date Sylvia Andino MD [address] [place] [address] [place] [phone] PCP - General Family Medicine 05/26/23 documented as of this encounter
--- OUTSIDE RECORDS SUMMARY | 2024-02-10 08:54 | External Medical Summary ---
Author Name Unknown Address Unknown Organization : Laboratory Report Ordering Provider Test Date Status GUSTAVO RODRIGUEZ 11/22/2023 08:42:24 Final Observation Date Value Abnormality Reference (Units ) Status PROLACTIN, TOTAL 11/22/2023 08:42:24 15.6 2.0 -18.0 (ng/mL) Final PROLACTIN, MONOMERIC 11/22/2023 08:42:24 11.6 3.4-14.8 (ng/mL) Final Patient samples with elevate d total prolactin
concentrations are routinely tested for the
presence of macroprolactin. This abnormal form of
prolactin crossreacts in the total prolactin assay
but is considered to be biologically inactive.
Following macroprolactin precipitation, monomeric
(unprecipitated) prolactin levels are expected to
be within the reference range. A monomeric
prolactin level greater than the upper limit of
the reference range is consistent with
hyperprolactinemia.
Test performed by [facility]
[address],
[place] [address]

Nurse Sane: Mercedes Boucher MD,PHD,JENISE
Test Reported by [facility],
[facility],
[address] [place], [place]
Dylan Dupree M.D., Ph.D., Director of Laboratories
, [place] [id number] Performing Location
--- OUTSIDE RECORDS SUMMARY | 2024-02-10 08:54 | External Medical Summary | Summary of Care ---
Author Name Unknown Organization [facility] Address [address] [place] [address] Phone [phone] Care Team Providers Care Cooler Worker Name Role Phone Sylvia Andino MD Primary Care [facility] ider Reason for Referral * Evaluate & Treat - Unlimited Visits (Within 10 days (routine)) - Authorized Specialty Diagnoses / Procedures Referred By Hiram moreno Referred To Contact Endocrinology/Metabolism / Endocrinology Diagnoses Hyperparathyroidism, primary (HCC) Elliot Marti DO [address] [place] [address] Referral ID Status Reason Start Date Expiration Date Visits Requested Visits Authorized [id number] Authorized Specialty Services Required 11/05/2023 999 [id number] Question Answer Referral Priority Within 10 days (routine) Where should this appointment be scheduled? [facility] For what condition is the patient being referred? Other Conditions Comments 53 yo male with hyperparathyroidism. Brother and father also with history of hyperparathyroidism s/p parathyroid surgeries. Eval for familial or possible MEN syndromes. * Precert (Within 10 days (routine)) - Pending Review Specialty Diagnoses / Procedures Referred By Hiram moreno Referred To Contact Radiology Diagnoses Hyperparathyroidism, primary (HCC) Procedures CT NECK W WO CONTRAST Elliot Marti DO [address] [place] [address] Referral ID Status Reason Start Date Expiration Date V isits Requested Visits Authorized [id number] Pending Review 11/12/2023 999 999 Reason for Visit * Reason Comments NEW PATIENT hyperparathyroidism * Evaluate & Treat - Unlimited Visits (Within 30 days (routine)) - Authorized Specialty Diagnoses / Procedures Referred By Hiram moreno Referred To Contact Otolaryngology Diagnoses Hypercalcemia Hyperparathyroidism (HCC) Sylvia Andino MD [address] [place] [address] [place] [address] Referral ID Status Reason Start Date Expiration Date Visits Requested Visits Authorized [id number] Authorized Specialty Services Required 07/16/2023 999 999 Encounter Details Date Type Department Care Team (Late st Contact Info) Description 11/05/2023 1:00 PM EDT Office Visit Otolaryngology [facility] [address] [place] [address] Elliot Marti DO [address] [place] [address] Hyperparathyroidism, primary (HCC)* Allergies No known active allergiesdocumented as of this encounter (statuses as of 11/05/2023) Medications No known medicationsdocumented as of this encounter (statuses as of 11/05/2023) Active Problems Problem Noted Date Diagnosed Date 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 Tobacco use disorder documented as of this encounter (statuses as of 11/05/2023) Immunizations Name Administration Dates Next Due Pneumococcal [...] Pressure - - Pulse - - Temperature 36.4 C (97.6 F) 11/05/2023 12:37 PM E DT Respiratory Rate - - Oxygen Saturation - - Inhaled Oxygen Concentration - - Weight 69.6 kg (153 lb 8 oz) 11/05/2023 12:37 PM EDT Height 170.2 cm (5' 7") 11/05/2023 12:37 PM EDT Body Mass Index 24.04 11/05/2023 12:37 PM EDT documented in this encounter Progress Notes * Elliot Marti, - 11/05/2023 1:17 PM EDT 11/05/2023 HISTORY OF PRESENT ILLNESS This 53 year old male is seen at the request of Sylvia Rubin MD for the initial evaluation of hyperparathyroidism. Patient has had elevated calcium as high as 10.7. His PTH has remained within normal limits. Urinary calcium levels and elevated. Had a nuclear med parathyroid scan which wasconsistent with a likely right-sided adenoma. Patient does state his father has a history of hyperparathyroidism with multi glandular disease. He also has a brother who has hyperparathyroidism as well. Both of them had surgery. He denies any blood pressure issues or hypertensive episodes. Has not seen Endocrinology. No history of kidney stones. Review of the patient's lab results reveals: No results found for: "TSH" Lab Results Component Value Date/Time PTH - [facility] 45 06/02/2023 08:16 AM Lab Results Component Value Date/Time CALCIUM - [facility] 10.7 (H) 05/26/2023 12:28 PM CALCIUM - [facility] 10.3 (H) 03/13/2015 11:54 AM CALCIUM - [facility] 9.8 05/05/2012 08:05 AM CALCIUM - [facility] 10.3 02/09/2005 03:05 PM CALCIUM IONIZED POCT - [facility] 1.28 09/20/2015 01:53 PM CALCIUM, 24 HOUR URINE - [facility] 0.26 07/14/2023 09:37 AM CALCIUM, 24 UR - [facility] 17.1 07/14/2023 09:37 AM CALCIUM, IONIZED - [facility] 1.36 (H) 06/28/2023 08:22 AM CALCIUM, IONIZED - [facility] 1.37 (H) 06/02/2023 08:16 AM Other workup includes parathyroid scan revealing " HISTORY Asymptomatic hyperparathyroidism COMPARISON None TECHNIQUE Following the intravenous administration of 25.2 mCi of Tc-99m sestamibi, planar and SPECT imaging was performed immediately post injection. Delayed planar and SPECT imaging was performed after threehours. Low-dose CT of the neck was performed and fused with the SPECT images on a separate workstation. FINDINGS PLANAR IMAGING: Normal thyroid and salivary [...] the visualized spine. Coronary artery calcifications. IMPRESSION IMPRESSION Parathyroid adenoma posterior to the inferior aspect of the right thyroid lobe." Problem List Patient Active Problem List Diagnosis ADVANCE DIRECTIVE INFORMATION Tobacco use disorder Gastroesophageal reflux disease without esophagitis IgG Gliadin antibody positive Bloating Past Medical History: Diagnosis Date Fracture of [...] performed by Jackie Ann MD at [facility] EGD, FLEXIBLE, DIAGNOSTIC 11/01/2023 esophagogastric landmarks/biopsies normal/ESOPHAGOGASTRODUODENOSCOPY (EGD), FLEXIBLE, TRANSORAL, DIAGNOSTIC performed by Jackie Ann MD at [facility]COPY [facility] Medications No current outpatient medications on [...] the PMH and Problem List). Physical Examination: Temp 36.4 C (97.6 F) (Tympanic) | Ht 1.702 m (5' 7") | Wt 69.6 kg (153 lb 8 oz) | BMI 24.04 kg/m | BSA 1.81 m PHYSICAL EXAM General: This is a healthy appearing male who appears his stated age. The patient is alert and appropriately verbally conversant without hoarseness. Face: The face was inspected and no cutaneous masses or lesions were visualized. There was no erythema or edema noted. Facial movement was symmetric without weakness. No skin lesions were detected. . Eyes: Extra-ocular muscle function was intact. No nystagmus was observed. Pupils were equal. Cranial Nerves: Cranial nerves II, III, IV, and were noted to be intact via extra-ocular muscle movement testing. Cranial nerve VII noted to be intact and symmetric by facial movement. Nose: Examination of the nose revealed no masses, polyps, mucopus, or other lesion. The nasal septum was non-obstructing. The turbinates were without abnormality. Oral Cavity: Examination of the oral cavity revealed no mass lesions nor infection. The palate was noted to be intact without evidence of clefting. The tongue exhibited normal mobility. Mucosa was moist without lesion. The lips were free of lesion. Gums were free of inflammation. Dentition: Unremarkable Oropharynx: The oral pharynx was free of mass lesion or mucosal abnormality. The palate was noted to be without lesion. The uvula was normal appearing. The tonsils were unremarkable. Ears: Examination of the ears revealed that the auricles were normally formed with no lesions. Neck: Visualization and palpation of the neck revealed no mass lesions, no thyromegaly or thyroid masses. No skin lesions or inflammatory processes were detected. The cervical musculature was normal to palpation. Lymphatics (cervical): There were no palpable lymph nodes in the posterior triangle, submandibular triangle, jugulodigastric region, or central neck. Lungs: Breathing quietly. No use of accessory muscles. Heart: Regular rate. No JVD. Assessment: 53-year-old male with hyperparathyroidism and likely right-sided adenoma who has a strong family history of hyperparathyroidism in his brother and father. Plan: Recommend 4D CT scan for better anatomic evaluation of the neck prior to consideration of surgery. Endocrinology referral placed for further workup of possible familial versus MEN syndrome prior to surgical intervention. I will see him back after the scan and the Endocrinology evaluation. I spent a total of 45 minutes on the date of service in preparation, delivery, and documentation ofthe care provided to the above patient, excluding any time spent on the performance of any procedures or separately billable services. Elliot Marti DO, [facility] Book Solicitor, Department of Otolaryngology-Head and Neck Surgery [place], [place] 11/05/2023 1:21 PM documented in this encounter Nursing Notes * Mili Kraft LPN - 11/05/2023 12:39 PM EDT Chief Complaint Patient presents with NEW PATIENT hyperparathyroidism Patient presents today d/t hypercalcemia, hyperparathyroidism. Pt had parathyroid SPECT 08/10/23 IMPRESSION Parathyroid adenoma posterior to the inferior aspect of the right thyroid lobe. Pt denies hx of kidney stone, no osteoporosis that he is aware of. documented in this encounter Plan of Treatment Upcoming Encounters Date Type Department Care Team (Latest Contact Info) Description 12/06/2023 3:30 PM EDT Imaging Radiology, [address] [place] [address] 12/07/2023 10:00 AM EDT Imaging Radiology [facility] [address] [place] [address] 12/14/2023 1:00 PM EDT Office Visit Otolaryngology [facility] [address] [place] [address] Elliot Marti DO [address] [place] [address] 01/26/2024 9:13 AM EST Hospital Encounter OR [facility], Operating Room, [facility] - 4th Floor [address] [place] [address] Nanda Riggs MD [address] [place] [address] 01/26/2024 9:13 AM EST - 01/26/2024 11:13 AM EST Surgery OR [facility], Operating Room, [facility] - 4th Floor [address] [place] [phone] Nanda Riggs MD [address] [place] [address] COLONOSCOPY, FLEXIBLE; WITH ENDOSCOPIC MUCOSAL RESECTION 05/31/2024 11:00 AM EDT Office Visit [address] [place] [phone] Sylvia Andino MD [address] [place] [address] [place] [id number] Scheduled Orders Name Type Priority Associated Diagnoses Orde r Schedule CT NECK W WO CONTRAST Medical Imaging Routine Hyperparathyroidism, primary (HCC) Expected: 11/12/2023, Expires: 12/04/2024 Scheduled Procedures Name Priority Associated Diagnoses Date/Ti me COLONOSCOPY, FLEXIBLE; WITH ENDOSCOPIC MUCOSAL RESECTION Colon polyp 01/26/2024 9:13 AM EST Scheduled Referrals Name Type Priority Associated Diagnoses Order Schedule ADULT ENDOCRINOLOGY REFERRAL OP Referral Within 10 days (routine) Hyperparathyroidism , primary (HCC) Ordered: 11/05/2023 Health Maintenance Due Date Last Done Comments [...] colon documented in this encounter Care Teams Cooler Worker Relationship Specialty Start Date End Date Sylvia Andino MD [address] [place] [address] [place] [address] PCP - General Family Medicine 05/26/23 documented as of this encounter
--- OUTSIDE RECORDS SUMMARY | 2024-02-10 08:54 | External Medical Summary ---
Author Name Unknown Address Unknown Organization K01:[facility] [address] [place] [address] Laboratory Report Ordering Provider Test Date Status RODRIGUEZ,GUSTAVO 11/22/2023 08:42:24 Final Observation Date Value Abnormality Reference (Units ) Status Albumin 11/22/2023 08:42:24 4.1 3.8-5.0 (g /dL) Final Performing Location [facility] - [address] [place] [address]
--- OUTSIDE RECORDS SUMMARY | 2024-02-10 08:54 | External Medical Summary ---
Author Name Unknown Address Unknown Organization : Laboratory Report Ordering Provider Test Date Status GUSTAVO RODRIGUEZ 11/22/2023 08:42:24 Final Observation Date Value Abnormality Reference (Units ) Status Calcitonin 11/22/2023 08:42:24 <2 <=10 (pg/ mL) Final This test was performed usin g the Siemens
Chemiluminescent method. Values obtained with
different assay methods cannot be used interchangeably.
Calcitonin levels, regardless of value, should not be
interpreted as absolute evidence of the presence or
absence of the disease.

Test Performed at:
[facility]
[address] [facility]
[place] [address]
Dylan Dupree M.D., Ph.D.,Director of Laboratories Performing Location
--- OUTSIDE RECORDS SUMMARY | 2024-02-10 08:54 | External Medical Summary ---
Author Name Unknown Address Unknown Organization K01:[facility] - [address] [place] [address] Laboratory Report Ordering Provider Test Date Status GUSTAVO RODRIGUEZ 11/22/2023 08:42:24 Final Observation Date Value Abnormality Reference (Units ) Status Prolactin [Mass/volume] in Serum or Plasma by 3rd IS 11/22/2023 08:42:24 23.7 Above high normal 4.0-20.0 (ng/mL) Final Performing Location [facility]ATORY [facility] - [address] [place] [address]
--- OUTSIDE RECORDS SUMMARY | 2024-02-10 08:54 | External Medical Summary | Summary of Care ---
Author Name Unknown Organization [facility] Address [address] [place] [address] Phone [phone] Care Team Providers Care Manager R D Name Role Phone Sylvia Andino MD Primary Care Prov ider Reason for Visit * Reason Comments New Consultation Parathyroid Encounter Details Date Type Department Care Team (Latest Contact Info) Description 11/16/2023 10:00 AM EDT Telemedicine Endocrinology [address] [place] [address] Jennifer Chen MD [address] [place] [address] Hyperparathyroidism (HCC)*; Hypercalcemia; Family history of hyperparathyroidism; Hyperprolactinemia (HCC) Allergies No known active allergiesdocumented as [...] as of this encounter Progress Notes * Jennifer Chen MD - 11/16/2023 9:54 AM EDT Images from the original note were not included. Patient location: HOME. I was in a hospital or clinic location. After connecting through televVivinto,patient was verified with two unique identifiers. Patient (or authorized legal cash application representative) was then informed that this was [...] or symptoms of myopathy. Denies significant weight belt changer past 12 months. Past Medical History: Diagnosis [...] performed by Jackie Ann MD at [facility] EGD, FLEXIBLE, DIAGNOSTIC 11/01/2023 esophagogastric landmarks/biopsies normal/ESOPHAGOGASTRODUODENOSCOPY (EGD), FLEXIBLE, TRANSORAL, DIAGNOSTIC performed by Jackie Ann MD at [facility] Family History Problem Relation Name Age of Onset Diabetes Father Social History Socioeconomic History Marital status: Single Spouse name: Not on file Number of children: 3 Years of education: Not on file Highest education level: Not on file Occupational History Occupation: restaurant service manager Employer: [employer] Comment: [employer] Tobacco Use Smoking status: Every Day Current [...] Not Asked Social History Narrative Works at [employer]. Social Determinants of Health Financial Resource Strain: [...] Stability Do you currently live in a usp or have no steady place to sleep [...] This chart was completed in part utilizing [employer] Voice Recognition Software. Grammatical errors, random word [...] in case of any questions or concerns. Jennifer Chen MD [place] [address] This chart was completed in part utilizing [employer] Voice Recognition Software. Grammatical errors, random word [...] Marti DO, FACS documented in this encounter Miscellaneous Notes * Addendum Note - Jennifer Chen MD - 11/22/2023 9:55 PM EDTAddended by: JENNIFER CHEN on: 11/22/2023 09:55 PM Modules accepted: Orders documented in this encounter Plan of Treatment Upcoming Encounters Date Type Department Care Team (Latest Contact Info) Description 12/06/2023 3:30 PM EDT Imaging Radiology, [address] [place] [address] 12/07/2023 10:00 AM EDT Imaging Radiology [facility] [address] [place] [address] 12/14/2023 1:00 PM EDT Office Visit Otolaryngology [facility] [address] [place] [address] Elliot Marti DO [address] [place] [address] 01/26/2024 9:13 AM EST Hospital Encounter OR [facility], Operating Room, [facility] Floor [address] [place] [address] Nanda Riggs MD [address] [place] [address] 01/26/2024 9:13 AM EST - 01/26/2024 11:13 AM EST Surgery OR [facility], Operating Room, [facility] Floor [address] [place] [address] Nanda Riggs MD [address] [place] [address] COLONOSCOPY, FLEXIBLE; WITH ENDOSCOPIC MUCOSAL RESECTION 05/31/2024 11:00 AM EDT Office Visit Family Medicine [facility] [place] [phone] Sylvia Andino MD [address] [place] [address] [place] [address] Pending Results Name Type Priority Associated Diagnoses Date /Time CALCITONIN Lab Routine Family history of hyperparathyroidism 11/22/2023 8:42 AM EDT METANEPHRINES, FRACTIONATED, FREE, LCMSMS, PLASMA Lab Routine Family history of hyperparathyroidism 11/22/2023 8:42 AM EDT GASTRIN, SERUM Lab Routine Hypercalcemia 11/22/2023 8:42 AM EDT Scheduled Orders Name Type Priority Associated Diagnoses Orde r Schedule CALCITONIN Lab Routine Family history of hyperparathyroidism Expected: 11/17/2023 (Approximate), Expires: 11/15/2024 METANEPHRINES, FRACTIONATED, FREE, LCMSMS, PLASMA Lab Routine Family history of hyperparathyroidism Expected: 11/17/2023 (Approximate), Expires: 11/15/2024 GASTRIN, SERUM Lab Routine Hypercalcemia Expected: 11/17/2023 (Approximate), Expires: 11/15/2024 DEXA SCAN/BONE MINERAL AXIAL Medical Imaging Routine Hyperparathyroidism (HCC) Expected: 11/16/2023 (Approximate), Expires: 12/15/2024 PROLACTIN, TOTAL AND MONOMERIC Lab Routine Hyperprolactinemia (HCC) Expected: 11/22/2023, Expires: 11/21/2024 Scheduled Procedures Name Priority Associated Diagnoses Date/Ti [...] Not on filedocumented as of this encounter Results * (ABNORMAL) PROLACTIN (11/22/2023 8:42 AM EDT) Prolactin 23.7(H) 4.0 - 20.0 ng/mL 11/22/2023 4:09 PM EDT LABORATORY [facility] Blood Venous blood specimen / Unknown Venipuncture / Unknown 11/22/2023 8:42 AM EDT 11/22/2023 8:42 AM EDT Jennifer Chen MD LAB BLOOD ORDERABLES Performing Organization Address [facility] de Phone Number LABORATORY GM [address] [place] [address] * CEA (11/22/2023 8:42 AM EDT) CEA 1.6 <=5.2 ng/mL 11/22/2023 3:46 PM EDT LABORATORY [facility] Blood Venous blood specimen / Unknown Venipuncture / Unknown 11/22/2023 8:42 AM EDT 11/22/2023 8:42 AM EDT Jennifer Chen MD LAB BLOOD ORDERABLES Performing Organization Address City/State/[facility] Co de Phone Number LABORATORY GM [address] [place] [address] * PTH (11/22/2023 8:42 AM EDT) PTH 56 15 - 65 pg/mL 11/22/2023 4:09 PM EDT LABORATORY [facility] Blood Venous blood specimen / Unknown Venipuncture / Unknown 11/22/2023 8:42 AM EDT 11/22/2023 8:42 AM EDT Jennifer Chen MD LAB BLOOD ORDERABLES Performing Organization Address [facility]/ZIP Co de Phone Number LABORATORY [facility] [address] [place] [address] * PHOSPHORUS (11/22/2023 8:42 AM EDT) Phosphorus 3.9 2.5 - 4.8 mg/dL 11/22/2023 3:31 PM EDT LABORATORY C Blood Venous blood specimen / Unknown Venipuncture / Unknown 11/22/2023 8:42 AM EDT 11/22/2023 8:42 AM EDT Jennifer Chen MD LAB BLOOD ORDERABLES Performing Organization Address [facility] Co de Phone Number LABORATORY [facility] [address] [place] [address] * ALBUMIN (11/22/2023 8:42 AM EDT) Albumin 4.1 3.8 - 5.0 g/dL 11/22/2023 3:31 PM EDT LABORATORY C Blood Venous blood specimen / Unknown Venipuncture / Unknown 11/22/2023 8:42 AM EDT 11/22/2023 8:42 AM EDT Jennifer Chen MD LAB BLOOD ORDERABLES Performing Organization Address [facility] Co de Phone Number LABORATORY [facility] [address] [place] [address] * (ABNORMAL) BASIC METABOLIC PANEL (11/22/2023 8:42 AM EDT) BUN 18 6 - 20 mg/dL 11/22/2023 3:31 PM EDT LABORATORY [facility] CREATININE 0.8 0.6 - 1.2 mg/dL 11/22/2023 3:31 PM EDT LABORATORY GM EGFR >90 >=60 mL/min 11/22/2023 3:31 PM EDT LABORATORY C Comment:eGFR is calculated b ased on the CKD-EPI 2020 equation. SODIUM 142 135 - 146 mmol/L 11/22/2023 3:31 PM EDT LABORATORY [facility] POTASSIUM 4.3 3.5 - 5.1 mmol/L 11/22/2023 3:31 PM EDT LABORATORY [facility] CHLORIDE 107 98 - 107 mmol/L 11/22/2023 3:31 PM EDT LABORATORY [facility] CO2 25 22 - 32 mmol/L 11/22/2023 3:31 PM EDT LABORATORY [facility] ANION GAP 10 7 - 15 mmol/L 11/22/2023 3:31 PM EDT LABORATORY [facility] GLUCOSE 99 70 - 120 mg/dL 11/22/2023 3:31 PM EDT LABORATORY [facility] CALCIUM 10.5(H) 8.4 - 10.2 mg/dL 11/22/2023 3:31 PM EDT LABORATORY [facility] Blood Venous blood specimen / Unknown Venipuncture / Unknown 11/22/2023 8:42 AM EDT 11/22/2023 8:42 AM EDT Jennifer Chen MD LAB BLOOD ORDERABLES Performing Organization Address City/State/[facility] Co de Phone Number LABORATORY [facility] [address] [place] [address] * US HEAD AND NECK (11/18/2023 12:45 PM EDT) Anatomical Region Laterality Modality Neck, Head Ultrasound 11/19/2023 6:03 AM EDT Impressions 11/19/2023 6:01 AM EDT IMPRESSION 1. Subcentimeter right thyroid nodule. 2. Possible right parathyroid adenoma. Correlate with serum calcium level and nuclear medicine sestamibi scan. ACR TI-RADS: TR1 (0 points) - Benign. No FNA TR2 (2 points) - Not suspicious. No FNA TR3 (3 points) - Mildly suspicious. FNA if 2.5 cm or larger; follow up if 1.5 cm or larger* TR4 (4-6 points) - Moderately suspicious. FNA if 1.5 cm or larger; follow up if 1 cm or larger TR5 (7 points or more) - Highly suspicious. FNA if 1 cm or larger; follow up if 0.5 cm or larger * = Follow up 1, 3, and 5 years (TR3) = Follow up 1, 2, 3, and 5 years (TR4) = Follow up 1, 2, 3, 4, and 5 years (TR5) [facility] 11/19/2023 6:01 AM EDT EXAM US HEAD AND NECK- 11/18/2023 12:45 pm HISTORY Personal and family history of primary hyperparathyroidism. Evaluate for thyroid nodules. MEN in differential diagnosis. TECHNIQUE Real-time ultrasound of the thyroid was performed. COMPARISON None. FINDINGS The right thyroid lobe measures 4 x 2.1 x 1.8 cm. The left thyroid lobe measures 4.3 x 1.6 x 2 cm. The thyroid isthmus measures 0.4 cm in thickness. The thyroid gland is normal in size and homogeneous in echotexture. There is a 0.5 x 0.4 x 0.3 cm hypoechoic nodule in the right mid gland, TR 4. There is a 0.7 x 0.7 x 0.8 cm hypoechoic heterogeneous not posterior to the right thyroid lobe, possibly a parathyroid adenoma. Procedure Note Gideon Hoskins MD - 11/19/2023 EXAM US HEAD AND NECK- 11/18/2023 12:45 pm HISTORY Personal and family history of primary hyperparathyroidism. Evaluate forthyroid nodules. MEN in differential diagnosis. TECHNIQUE Real-time ultrasound of the thyroid was performed. COMPARISON None. FINDINGS The right thyroid lobe measures 4 x 2.1 x 1.8 cm. The left thyroid lobemeasures 4.3 x 1.6 x 2 cm. The thyroid isthmus measures 0.4 cm inthickness. The thyroid gland is normal in size and homogeneous in echotexture. Thereis a 0.5 x 0.4 x 0.3 cm hypoechoic nodule in the right mid gland, TR 4. There is a 0.7 x 0.7 x 0.8 cm hypoechoic heterogeneous not posterior tothe right thyroid lobe, possibly a parathyroid adenoma. IMPRESSION IMPRESSION 1. Subcentimeter right thyroid nodule. 2. Possible right parathyroid adenoma. Correlate with serum calcium leveland nuclear medicine sestamibi scan. ACR TI-RADS: TR1 (0 points) - Benign. No FNA TR2 (2 points) - Not suspicious. No FNA TR3 (3 points) - Mildly suspicious. FNA if 2.5 cm or larger; follow up if1.5 cm or larger* TR4 (4-6 points) - Moderately suspicious. FNA if 1.5 cm or larger; followup if 1 cm or larger TR5 (7 points or more) - Highly suspicious. FNA if 1 cm or larger; followup if 0.5 cm or larger * = Follow up 1, 3, and 5 years (TR3) = Follow up 1, 2, 3, and 5 years (TR4) = Follow up 1, 2, 3, 4, and 5 years (TR5) Jennifer Chen MD RAD ULTRASOUND documented in this encounter Visit Diagnoses Diagnosis Hyperparathyroidism (HCC)- Primary Hyperparathyroidism, unspecified Hypercalcemia Family history of hyperparathyroidism Family history of other endocrine and metabolic diseases Hyperprolactinemia (HCC) Other and unspecified anterior pituitary hyperfunction Hyperparathyroidism (HCC) Hyperparathyroidism, unspecified Colon polyp Benign neoplasm of colon documented in this encounter Care Teams Manager R D Relationship Specialty Start Date End Date Sylvia Andino MD [address] [place] [address] [place] [phone] PCP - General Family Medicine 05/26/23 documented as of this encounter
--- OUTSIDE RECORDS SUMMARY | 2024-02-10 08:54 | External Medical Summary | Summary of Care ---
Author Name Unknown Organization [facility] Address [address] [facility] [place] [address] Phone [phone] Care Team Providers Care Sheet Metal Technician Name Role Phone Sylvia Andino MD Primary Care Prov ider Encounter Details Date Type Department Care Team (Late st Contact Info) Description 11/01/2023 Telephone ENDO [facility], Endoscopy Room [facility] [address] [place] [address] Jackie Ann MD [address] [place] [address] [place] [address] Allergies No known active [...] Patient had his initial colonoscopy done at [facility] by me today 11/01/23 for a [...] 11/17/2023 8:30 AM EDT Office Visit Otolaryngology [facility] [address] [place] [address] Elliot Marti, [address] [place] [address] 12/06/2023 3:30 PM EDT Imaging Radiology, [address] [place] [address] 05/30/2024 11:00 AM EDT Office Visit Family Medicine [address] [place] [phone] Sylvia Andino MD [address] [place] [address] [place] [phone] Scheduled Procedures Name Priority Associated Diagnoses Date/Ti [...] filedocumented as of this encounter Care Teams Sheet Metal Technician Relationship Specialty Start Date End Date Sylvia Andino MD [address] [place] [address] [place] [phone] PCP - General Family Medicine 05/26/23 documented as of this encounter
--- OUTSIDE RECORDS SUMMARY | 2024-02-10 08:55 | External Medical Summary | Summary of Care ---
Author Name Unknown Organization [facility] Address [address] [facility] [address] Phone [phone] Care Team Providers Care Guest Experience Manager Name Role Phone Sylvia Andino MD Primary Care Prov ider Encounter Details Date Type Department Care Team (Late st Contact Info) Description 10/11/2023 Telephone Gastroenterology, [facility] [address] [facility] [place] [address] Jackie Ann MD [address] [facility] [place] [address] Allergies No known active allergiesdocumented as of this encounter (statuses as of 10/11/2023) Medications No known medicationsdocumented as of this encounter (statuses as of 10/11/2023) Active Problems Problem Noted Date Diagnosed Date 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 Tobacco use disorder documented as of this encounter (statuses as of 10/11/2023) Immunizations Name Administration Dates Next Due Pneumococcal Polysaccharide PPV23 (Pneumovax) 05/05/2012,09/03/2008(Deferred: Patient Refused) Seasonal Influenza, Split, I IV3, With Preserve, Inj 11/12/2014,11/05/2008 TDAP (age 10 and older)(Boostrix) 05/26/2023 [...] Care Team (Latest Contact Info) Description 11/01/2023 10:45 AM EDT Hospital Encounter ENDO [facility], Endoscopy Room [facility] [address] [place] [phone] Jackie Ann MD [address] [place] [phone] 11/01/2023 10:45 AM EDT - 11/01/2023 11:45 AM EDT Surgery ENDO [facility], Endoscopy Room [facility] [address] [place] [phone] Jackie Ann MD [address] [place] [phone] COLONOSCOPY FLEXIBLE PROXIMAL DIAGNOSTIC 11/17/2023 8:30 AM EDT Office Visit Otolaryngology [facility] [address] [place] [address] Elliot Marti DO [address] [place] [address] 12/06/2023 3:30 PM EDT Imaging Radiology, [place] [address] [place] [address] 05/30/2024 11:00 AM EDT Office Visit Family Medicine [address] [place] [phone] Sylvia Andino MD [address] [place] [address] [place] [address] Scheduled Procedures Name Priority Associated Diagnoses Date/Ti me COLONOSCOPY FLEXIBLE PROXIMA L DIAGNOSTIC Screening for colon cancer 11/01/2023 10:45 AM EDT ESOPHAGOGASTRODUODENOSCOPY ( EGD), FLEXIBLE, TRANSORAL, DIAGNOSTIC Screening for colon cancer 11/01/2023 10:45 AM EDT Health Maintenance Due Date Last Done Comments Hepatitis B Vaccine (1 of 3 - 19+ 3-dose series) 02/03/1988 Pneumococcal Vaccine: Pediatrics (0 to 5 Years) and At-Risk Patients (6 to 64 Years) (2 of 2 - PCV) 05/05/2013 05/05/2012 Cologuard 2014 Colonoscopy 2014 Colorectal Cancer Screening 2014 Fecal Occult Blood Test 2014 Sigmoidoscopy 2014 Depression Screening 12/01/2015 11/30/2014 COVID-19 Vaccine (1 - 2022-2 4 season) 2022 Zoster Vaccines (2 of 2) 07/21/2023 05/26/2023 Influenza Vaccine (FLU shot) (#1) 2023 11/12/2014, 11/05/2008 Lipid Panel 05/25/2028 05/26/2023, 05/05/2012, 02/09/2005 DTaP,Tdap,and Td Vaccines (3 - Td or Tdap) 05/25/2033 05/26/2023, 03/13/2011 HPV (Gardasil) Vaccine Aged Out No lo nger eligible based on patient's age to complete this topic MENINGOCOCCAL (MENACTRA/MENVEO) Aged Out No longer eligible b ased on patient's age to complete this topic documented as of this encounter Medical Devices Not on filedocumented as of this encounter Care Teams Guest Experience Manager Relationship Specialty Start Date End Date Sylvia Andino MD [address] [place] [address] [place] [phone] PCP - General Family Medicine 05/26/23 documented as of this encounter
--- OUTSIDE RECORDS SUMMARY | 2024-02-10 08:55 | External Medical Summary | Summary of Care ---
Author Name Unknown Organization [facility] Address [address] [facility] [address] Phone [phone] Care Team Providers Care Auto Finance Sales Rep Name Role Phone Sylvia Andino MD Primary Care Prov ider Encounter Details Date Type Department Care Team (Late st Contact Info) Description 11/01/2023 Telephone ENDO [facility], Endoscopy Room [facility] [address] [place] [address] Jackie Ann MD [address] [place] [address] [place] [address] Allergies No known active [...] Patient had his initial colonoscopy done at [facility] by me today 11/01/23 for a [...] 11/17/2023 8:30 AM EDT Office Visit Otolaryngology [facility] [address] [place] [address] Elliot Marti, [address] [place] [address] 12/06/2023 3:30 PM EDT Imaging Radiology, [address] [place] [address] 05/30/2024 11:00 AM EDT Office Visit Family Medicine [address] [place] [phone] Sylvia Andino MD [address] [place] [address] [place] [phone] Scheduled Procedures Name Priority Associated Diagnoses Date/Ti [...] filedocumented as of this encounter Care Teams Auto Finance Sales Rep Relationship Specialty Start Date End Date Sylvia Andino MD [address] [place] [address] [place] [phone] PCP - General Family Medicine 05/26/23 documented as of this encounter
--- NOTE | 2024-02-10 09:16 | Hospitalist Progress Note ---
Date of Service February 10, 2024 Assessment & Plan (1) Pyelonephritis: Plan: 51-year-old male with past medical history significant for primary hyperparathyroidism, parathyroid adenoma, GERD, osteoporosis, ongoing tobacco abuse presents with abdominal pain and constipation. Patient had colonoscopy on January 26, 2024. Patient states since colonoscopy did not moved his bowels. He thinks he is micturating okay. Last few days he is having some pain while m icturating. Denies any blood in the urine. Denies any fevers. He also has abdominal pain which got progressively worse to 8/10 in severity. Has some nausea. No vomiting. Appetite has been down. Denies chest pain or shortness of. No headache. Vision is okay. No runny nose or sore throat. No cough. Hemodynamics are okay. Possible Pyelonephritis Bladder Outlet Obstruction 53-year-old male present with abdominal pain, constipation CT scan showing distended bladder and enlarged prostate, bilateral perinephritis and mild hydroureteronephrosis Status post Mann catheter in the ER which drained significant amount of urine UA is positive and has leukocytosis Received Rocephin in the ER Will continue with Zosyn; follow up on Urine culture Appreciate urology input Proctitis Constipation possibly from above Empiric Zosyn Patient had colonoscopy on January 26, 2024 and had polypectomy in the rectosigmoid region which showed tubulovillous adenoma with focal surface high- grade dysplasia and plan for repeat colonoscopy 9 months patient had BM with tap water enema on 02/09 Continue aggressive BM regimen appreciate GI input History of hyperparathyroidism primary Status post parathyroidectomy Biopsy showed parathyroid adenoma Follow-up with endocrinology and ENT DVT prophylaxis SCDs for now Disposition Medical floor Full code. Please note the above document was generated using voice recognition software. It may contain grammatical, syntax or spelling errors. Any formal questions or concerns about the content, text or information contained within the body of this dictation should be directly addressed to the provider for clarification Admission and Anticipated Discharge Date Admission Date: February 09, 2024 Subjective Patient had a BM with tapwater enema Mann draining clear urine Afebrile and vital signs are stable Review of Systems Review of Systems: All systems reviewed & are unremarkable except as noted in Subjective Physical Exam Physical Exam: General- Not in distress Head- atraumatic Eyes- PERRL. ENT- oropharynx clear Neck- supple, no JVD. Lungs- clear to auscultation no wheezing or crackles. Heart- regular rhythm; no murmur, no gallop. Abdomen- normal bowel sounds, soft, mild diffuse discomfort, no distension. Extremities- no pretibial edema, no erythema seen. Neuro- alert, oriented , PERRL,no facial palsy; no dysarthria; moves extremities. Results & Data Results & Data Vital Signs (Past 12 Hours) Vital Signs Temp Pulse Pulse Resp BP BP Pulse Ox 02/10/24 08:23 37 C 63 18 121/74 97 02/10/24 02:06 37 C 62 18 133/80 99 02/10/24 01:59 37 C 62 18 99 02/09/24 23:56 60 02/09/24 23:55 60 18 130/75 97 02/09/24 23:05 67 14 131/82 97 02/09/24 22:00 65 18 133/88 97 O2 Del Method 02/10/24 08:23 Room Air 02/10/24 02:06 Room Air 02/10/24 01:59 Room Air 02/09/24 23:56 02/09/24 23:55 Room Air 02/09/24 23:05 Room Air 02/09/24 22:00
[2024-02-10] MEDS: POLYETHYLENE (MIRALAX) 17 GM PACK PO SCH (09:31)
--- NOTE | 2024-02-10 10:19 | Urology Consultation ---
<Statement entered by Richard Marshall MD - 02/10/24 14:28> I have discussed Mr. Schmidt's case with JASON Rodriguez and agree with the above documentation. Agree with maintaining Mann catheter for now. Start tamsulosin and could consider adding finasteride as well. Continue with broad- spectrum antibiotics, narrow as culture data becomes available. Urology will c oordinate outpatient follow-up with cystoscopy outlet and bladder. -Richard Marshall MD. Date of Consultation February 10, 2024 Assessment & Plan (1) Acute pyelonephritis: (2) Bladder outlet obstruction: (3) Postobstructive diuresis: 54-year-old male presenting with constipation and abdominal pain admitted for proctitis, urinary retention and complicated UTI. Patient afebrile, hemodynamically stable. Labs reviewedcreatinine 0.79, WBCs 9.57, hemoglobin 11.5. Urine culture pending. CT reviewed and discussed. Urinary retention likely multifactorial with enlarged prostate, bladder outlet obstruction, infection and constipation. Continue with Mann catheter for management of urinary retentionmaintain for at least 7 to 10 days. Recommend start tamsulosin. Continue broad-spectrum antibiotics, follow culture and narrow per sensitivity data when available. Recommend bowel regimen to normalize bowelsdefer to primary team. Recommend cystoscopy as an outpatient to evaluate for bladder outlet obstruction. Will arrange outpatient follow-up with our service for cystoscopy and void trial. PSA testing can be done outpatient after acute issues resolved. will sign off, please contact our service with any additional questions or concerns. History of Present Illness Reason for Consultation: enlarged prostate, urinary retention, pyelonephritis Attending Physician: Ronnie Silverman MD History of Present Illness This is a 54-year-old male with past medical history of primary hyperparathyroidism, parathyroid adenoma, osteoporosis and tobacco use who presented to the emergency department on 02/09/2024 for evaluation of abdominal pain and constipation. He had an outpatient colonoscopy on 01/26/2024 and parathyroidectomy on 01/31 and reported no bowel movement since procedure. On arrival to ED, he was afebrile, hypertensive. Labs showed leukocytosis of 18.32, hemoglobin 13.1, potassium 3.4 and creatinine 0.86. Workup included CT abdomen pelvis which noted bilateral pyelonephritis and mild hydroureteronephrosis to a moderate to severely distended bladder, enlarged prostate measuring 6.0 x 6.8 x 5.9 cm with prominent nodule in the median lobe. There was question of mild proctitis and large amounts of stool in the right and transverse colon noted. A Mann catheter was placed in the emergency department with immediate return of 1600 mL of urine. He was treated with ceftriaxone in the emergency department. He was admitted to the hospital medicine service for constipation, postobstructive diuresis and pyelonephritis. Urology is consulted for evaluation of enlarged prostate, urinary retention and pyelonephritis. Labs today reviewedcreatinine 0.79, WBC 9.57, hemoglobin 11.5. Urine culture is pending. Currently on IV Zosyn. Patient seen and examined at bedside this morning. He is awake and resting in bed. Mann intact. He reports no significant bowel movement since his colonoscopy on 01/25. He reports he has been pushing fluids and has had urinary frequency during the day as well as nocturia (hourly). Denies bothersome lower urinary tract symptoms prior to his colonoscopy. He felt like he was emptying his bladder well. No dysuria or hematuria. No prior urology evaluations. Denies taking medications for prostate or voiding in the past. Denies family history of malignancy. Reports his father has history of enlarged prostate. Allergies Allergy/AdvReac Type Severity Reaction Status Date / Time No Known Allergies Allergy Unverified 02/09/24 17:12 Home Medications Medication Instructions Recorded Confirmed Type bisacodyl 10 mg rectal suppository 10 mg TN DAILY PRN Constipation 02/09/24 02/09/24 History (Dulcolax (bisacodyl)) docusate sodium 100 mg capsule 100 mg PO UD PRN Constipation 02/09/24 02/09/24 History (Colace) magnesium hydroxide 400 mg/5 mL 15 ml PO UD PRN Constipation 02/09/24 02/09/24 History oral suspension (Milk of Magnesia) Patient History Social History Smoking Status: Light tobacco smoker Tobacco Type: Cigarettes Second Hand Exposure: No; Do You Dip or Chew Tobacco: No; Tobacco Cessation Education Requested by Patient: No Hx Alcohol Use: No Hx Substance Use: No Preferred Language: Latvian Communication Ability: Effective Pocketed Spring Machine Operator Required: No Beliefs That Will Affect Care: None Current Living Situation: Parent Other Information That Helps Us Care for You: Yes Feels Safe at Home: Yes Safety Concerns: Feels Safe At This Time Assistive Devices: Glasses Review of Systems Review of Systems: All systems reviewed & are unremarkable except as noted in HPI & below Physical Exam Constitutional: well developed and well nourished; no acute distress Respiratory: normal respiratory effort; no respiratory distress and no labored breathing Gastrointestinal (Abdomen): Inspection/Auscultation: abdomen normal to inspection Musculoskeletal: Head/Neck/Chest: normocephalic Neurologic: moves all extremities and awake Psychiatric: Orientation: alert and oriented x 3 Genitourinary: Mann draining clear yellow Results & Data Vital Signs (Past 12 Hours) Vital Signs Temp Pulse Pulse Resp BP BP Pulse Ox 02/10/24 08:23 37 C 63 18 121/74 97 02/10/24 02:06 37 C 62 18 133/80 99 02/10/24 01:59 37 C 62 18 99 02/09/24 23:56 60 02/09/24 23:55 60 18 130/75 97 02/09/24 23:05 67 14 131/82 97 O2 Del Method 02/10/24 08:23 Room Air 02/10/24 02:06 Room Air 02/10/24 01:59 Room Air 02/09/24 23:56 02/09/24 23:55 Room Air 02/09/24 23:05 Room Air PG Care Time/CCT Total # of Minutes Spent Total Time Spent with Patient: Total time spent is greater than 50% in coordination of care (as documented) at patient's floor/unit and/or counseling patient: Coding Level of Care Code 83477 IN/OBS CONSULT LVL 4,60M Diagnoses Acute pyelonephritis N10 Bladder outlet obstruction N32.0 Postobstructive diuresis R35.89
--- NOTE | 2024-02-10 10:31 | Gastrointestinal Consultation ---
Date of Consultation February 10, 2024 Assessment & Plan (1) Constipation: Patient is a 54 year old male who was admitted with abdominal pain and constipation. He had been unable to move his bowels since colonoscopy earlier this month. CT scan with question of proctitis. He was given a suppository and saw benefit with this. He is feeling much better currently. - continue with miralax 17gm q 8 hours. can titrate dose as needed. - he should follow up with his primary GI team at [facility] upon discharge. Supervising Physician Co-Signing Physician Notes I personally saw and examined the patient. I have reviewed the chart and agree with the documentation provided by the WHEEL [facility] including discussion about the assessment, treatment and plan. Briefly, 54 year old male who was admitted with abdominal pain and constipation. He had been unable to move his bowels since colonoscopy earlier this month. CT scan with question of proctitis. He was given a suppository and saw benefit with this. He is feeling much better currently. He had significant bladder distention with urinary retention that is improved since Mann was placed and his bowel movements have also since improved. Continue the bowel regimen with MiraLAX daily. Follow-up with [facility] outpatient. Suspect needed urinary retention and colonic ileus leading to severe constipation. He has improved markedly. GI has no further recommendations we will sign off please call us back with any questions. History of Present Illness Reason for Consultation: proctitis/constipation Requesting Physician: Phani Reid MD Attending Physician: Ronnie Silverman MD History of Present Illness Patient is a 51 year old male with a past medical history significant for primary hyperparathyroidism, parathyroid adenoma, GERD, osteoporosis, ongoing tobacco abuse, who presented to the ED on 02/08 with complaints of abdominal pain and constipation. Patient had colonoscopy on January 26, 2024 with [facility] for removal of a large polyp. Patient states since colonoscopy, he had not moved his bowels. he came to the ED and had a CT showing a question of mild proctitis, large amounts of stool in the right and transverse colon without obstructing mass, bilateral pyleonephritis and mild hydroureternephrosis to a moderate to severely distended urinary bladder, enlarged prostate with nodule. He tells me that abdominal pain improved with cath placement. Since he has been here he tells me he was given a suppository and has been moving his bowels now. no blood or melena. He tells me he is feeling much better now. no current GI concerns. Allergies Allergy/AdvReac Type Severity Reaction Status Date / Time No Known Allergies Allergy Unverified 02/09/24 17:12 Home Medications Medication Instructions Recorded Confirmed Type bisacodyl 10 mg rectal suppository 10 mg IN DAILY PRN Constipation 02/09/24 02/09/24 History (Dulcolax (bisacodyl)) docusate sodium 100 mg capsule 100 mg PO UD PRN Constipation 02/09/24 02/09/24 History (Colace) magnesium hydroxide 400 mg/5 mL 15 ml PO UD PRN Constipation 02/09/24 02/09/24 History oral suspension (Milk of Magnesia) Patient History Social History Smoking Status: Light tobacco smoker Tobacco Type: Cigarettes Second Hand Exposure: No; Do You Dip or Chew Tobacco: No; Tobacco Cessation Education Requested by Patient: No Hx Alcohol Use: No Hx Substance Use: No Preferred Language: Qatari Communication Ability: Effective Test Deskman Required: No Beliefs That Will Affect Care: None Current Living Situation: Parent Other Information That Helps Us Care for You: Yes Feels Safe at Home: Yes Safety Concerns: Feels Safe At This Time Assistive Devices: None Review of Systems Review of Systems: All systems reviewed & are unremarkable except as noted in HPI & below Physical Exam Constitutional: WD/WN, vitals as above Respiratory: normal respiratory effort, lungs clear to auscultation Cardiovascular: Rate/Rhythm: regular rate and regular rhythm Gastrointestinal (Abdomen): normal bowel sounds, soft, nontender, no hepatosplenomegaly Psychiatric: Orientation: alert and oriented x 3 Affect: euthymic affect Results & Data Vital Signs (Past 12 Hours) Vital Signs Temp Pulse Pulse Resp BP BP Pulse Ox 02/10/24 08:23 98.6 F 63 18 121/74 97 02/10/24 02:06 98.6 F 62 18 133/80 99 02/10/24 01:59 98.6 F 62 18 99 02/09/24 23:56 60 02/09/24 23:55 60 18 130/75 97 02/09/24 23:05 67 14 131/82 97 O2 Del Method 02/10/24 08:23 Room Air 02/10/24 02:06 Room Air 12/19/24 01:59 Room Air 02/09/24 23:56 02/09/24 23:55 Room Air 02/09/24 23:05 Room Air Coding Level of Care Code 88650 IN/OBS CONSULT LVL 3,45M Diagnoses Constipation K59.00
[2024-02-10] MEDS: bisacodyL 10 MG SUPP PR ONE (13:39)
--- NOTE | 2024-02-10 22:21 | Electrocardiogram Report ---
Test Reason : Blood Pressure : */* mmHG Vent. Rate : 63 BPM Atrial Rate : 63 BPM P-R Int : 132 ms QRS Dur : 102 ms QT Int : 428 ms P-R-T Axes : 63 31 22 degrees QTcB Int : 437 ms Normal sinus rhythm Normal ECG No previous ECGs available Confirmed by Phil Vallejo ([id number]) on 02/10/2024 10:21:05 PM Referred By: REFERRED SELF Confirmed By: Phil Vallejo
[2024-02-11 07:33] VITALS: BP 109/72; RESP 16; TEMP 98.2; O2SAT 97
[2024-02-11 08:55] LABS: Basophils # (auto) 0.03 K/uL (0.00-0.20); Basophils % (auto) 0.3 %; Eosinophils # (auto) 0.19 K/uL (0.00-0.50); Eosinophils % (auto) 2.2 %; Hematocrit (blood only) 36.1 % (42.0-52.0); Hemoglobin 12.1 g/dl (14.0-18.0); Immature Granulocytes # (auto) 0.04 K/uL (0.01-0.20); Immature Granulocytes % (auto) 0.5 %; Lymphocytes # (auto) 2.76 K/uL (1.20-3.40); Lymphocytes % (auto) 31.4 %; Mean Corpuscular Hemoglobin 31.2 pg (25.0-34.0); Mean Corpuscular Hgb Conc 33.5 g/dL (32.0-36.0); Mean Platelet Volume 10.5 fL (9.4-12.4); Monocytes # (auto) 0.75 K/uL (0.11-0.59); Monocytes % (auto) 8.5 %; Neutrophils # (auto) 5.01 K/uL (1.40-6.50); Neutrophils % (auto) 57.1 %; Platelet Count 390 K/uL (130-400); RDW Coefficient of Variation 12.5 % (11.5-14.5); RDW Standard Deviation 42.5 fL (36.4-46.3); Red Blood Count 3.88 M/uL (4.70-6.10); White Blood Count 8.78 K/ul (4.8-10.8)
[2024-02-11 09:05] LABS: BUN Creatinine Ratio 17.6 (10-20); Creatinine Clr Calc Pharmacy 88.6 ml/min; Potassium 3.8 mmol/L (3.5-5.1)
[2024-02-11] MEDS: bisacodyL 10 MG SUPP PR STA (10:14)
[2024-02-11 11:10] VITALS: PULSE 56
--- NOTE | 2024-02-11 15:12 | Discharge Summary ---
Date of Service February 11, 2024 Admission HPI Per Admitting Provider 51-year-old male with past medical history significant for primary hyperparathyroidism, parathyroid adenoma, GERD, osteoporosis, ongoing tobacco abuse presents with abdominal pain and constipation. Patient had colonoscopy on January 26, 2024. Patient states since colonoscopy did not moved his bowels. He thinks he is micturating okay. Last few days he is having some pain while micturating. Denies any blood in the urine. Denies any fevers. He also has abdominal pain which got progressively worse to 8/10 in severity. Has some nausea. No vomiting. Appetite has been down. Denies chest pain or shortness of. No headache. Vision is okay. No runny nose or sore throat. No cough. Hemodynamics are okay. Past medical history. As mentioned above Past surgical history. Colonoscopy. EGD. Bilateral parathyroidectomy. Social history. Smokes 0.5 packs a day for last 26 years. No alcohol use currently. No drug use. Family history. Father had diabetes. Admission Exam Per Admitting Provider General- Not in distress Head- atraumatic Eyes- PERRL. ENT- oropharynx clear Neck- supple, no JVD. Lungs- clear to auscultation no wheezing or crackles. Heart- regular rhythm; no murmur, no gallop. Abdomen- normal bowel sounds, soft, mild diffuse discomfort, no distension. Extremities- no pretibial edema, no erythema seen. Neuro- alert, oriented , PERRL,no facial palsy; no dysarthria; moves extremities. Principal Diagnosis Severe constipation Acute urinary retention Discharge Exam General- Not in distress Head- atraumatic Eyes- PERRL. ENT- oropharynx clear Neck- supple, no JVD. Lungs- clear to auscultation no wheezing or crackles. Heart- regular rhythm; no murmur, no gallop. Abdomen- normal bowel sounds, soft, mild diffuse discomfort, no distension. Extremities- no pretibial edema, no erythema seen. Neuro- alert, oriented , PERRL,no facial palsy; no dysarthria; moves extremities. Discharge Data Allergies Allergy/AdvReac Type Severity Reaction Status Date / Time No Known Allergies Allergy Unverified 02/09/24 17:12 Consultations 02/09/24 21:48 ED Decision to Admit Stat 02/10/24 08:00 Consult Gastroenterology Routine Consult Urology Routine Ordered Studies 02/09/24 17:11 CT abd pelvis IV con only Stat Hospital Course (1) Pyelonephritis: 51-year-old male with past medical history significant for primary hyperpa rathyroidism, parathyroid adenoma, GERD, osteoporosis, ongoing tobacco abuse presents with abdominal pain and constipation. Possible Pyelonephritis- ruled out Bladder Outlet Obstruction s/p Mann placement Constipation 53-year-old male present with abdominal pain, constipation CT scan showing distended bladder and enlarged prostate, bilateral perinephritis and mild hydroureteronephrosis Status post Mann catheter in the ER which drained significant amount of urine Urinalysis shows pyuria. Urine culture was negative Patient was started on aggressive bowel regimen with tapwater enema, [id number] MiraLAX with resolution of constipation. GI was also consulted for comanagement; agreed with the plan. Urology was consulted for acute urinary retention; patient has appointment set up after discharge for trial of void. Patient did not have any fever, chills; no tenderness in costovertebral angle. Leukocytosis improved during the hospitalization. Patient was prescribed 5 days of Augmentin to complete antibiotic course for possible proctitis/UTI Please note the above document was generated using voice recognition software. It may contain grammatical, syntax or spelling errors. Any formal questions or concerns about the content, text or information contained within the body of this dictation should be directly addressed to the provider for clarification Total Time Total Time Spent Total Time Spent (In Minutes): 35 Total Time Includes: Examination of the Patient, Discharge Planning, Medication Reconciliation, Communication With Other Providers and Other Discharge Plan Discharge Items Patient Disposition: Home - Self-Care Reason For Visit: PYELONEPHRITIS, URINARY RETENTION, CONSTIPATION Discharge Diagnosis: Urinary retention Constipation Activity: Resume your previous activity Non-emergency contact: Primary Care Provider Call non-emergency contact if: you have any medication questions and your symptoms worsen Follow-up/Referrals: Sylvia Rubin MD [Primary Care Provider] - Diet: Regular Addtl Attending Provider Instructions: You were admitted to the hospital due to urinary retention and constipation. For urinary retention, please follow-up with urology ( Dr. Richard Marshall) for trial of void. You are also prescribed tamsulosin 0.4 mg once a day. For constipation, please take MiraLAX 3 times a day. The dose of the MiraLAX can be decreased after improvement in constipation. You are prescribed antibiotics with amoxicillin to be taken twice a day for 5 more days to complete the antibiotic course for possible urinary tract infection. Pending Studies at Discharge: No Stand-Alone Forms: [facility], Smoking Cessation Medications and DC Order Prescriptions: New polyethylene glycol 3350 [Miralax] 17 gram Powder In Packet 17 g PO Q8H Qty: 30 0RF tamsulosin 0.4 mg capsule 0.4 mg PO DAILY Qty: 60 0RF amoxicillin-pot clavulanate 875-125 mg tablet 1 tab PO BID 5 Days Qty: 10 0RF Continued bisacodyl [Dulcolax (bisacodyl)] 10 mg Suppository 10 mg PA DAILY PRN (Reason: Constipation) Discontinued magnesium hydroxide [Milk of Magnesia] 400 mg/5 mL Suspension 15 ml PO UD PRN (Reason: Constipation) docusate sodium [Colace] 100 mg Capsule 100 mg PO UD PRN (Reason: Constipation) Discharge Orders: Discharge Order (Routine); Ordered 02/11/24 Ordered By: Ronnie Silverman Admission Data Admit Date/Time: 02/09/24 22:34 Attending Provider: Ronnie Silverman Admit Provider: Phani Reid Primary Care Provider: Sylvia Rubin Other Providers: Phani Reid; Timothy Koo; Piter Allen; Ana Llanos; Anton Castillo; Valeria Munoz; Jerri Stockton; Richard Marshall; Sylvia Barton; Jhon Miller; Zakia Wallace; Fahad Crews Other Interventions: Discharge Summary Assessment (RN) Last Done: 02/11/24 11:09
== END 2024-02-11 13:50 | disposition home or self-care (01) | DRG 726 ==
LOC: ED 16:49 → 3N 22:34

== ENCOUNTER 2024-02-28 08:11 | Observation (INO) ==
--- NOTE | 2024-02-24 09:40 | Anesthesiology Consultation ---
Date of Service February 24, 2024 Assessment & Plan (1) Encounter for pre-operative examination: Chart Review Chart Review: Acceptable Risk for Surgery and Patient NOT seen in Pre Admission Testing -Infectious Disease screening: Per PAT nursing assessment on 02/24/24. No known infectious disease contacts in past 10 days or current infectious disease symptoms. No recent travel outside the country. History Surgery Operation Date: 02/28/24 10:30 Proposed Procedures p TURP (Transurethral Resection of the Prostate) - Anton Castillo DO Height/Weight Height: 5 ft 6 in Weight: 68.039 kg Allergies Allergy/AdvReac Type Severity Reaction Status Date / Time No Known Allergies Allergy Unverified 02/24/24 08:37 Medications Home Medications Medication Instructions Recorded Confirmed Last Taken polyethylene glycol 3350 17 gram 17 g PO Q8H #30 ea 02/11/24 02/24/24 Unknown oral powder packet (Miralax) tamsulosin 0.4 mg capsule 0.4 mg PO DAILY #60 caps 02/11/24 02/24/24 Unknown ciprofloxacin HCl 500 mg tablet 500 mg PO BID #14 tabs 02/24/24 Unknown (Cipro) Past Medical History Medical History Bladder outlet obstruction s/p adams placement (patient admitted to [facility] 02/09/24-02/11/24) Constipation GERD (gastroesophageal reflux disease) per records History of hyperparathyroidism and parathyroid adenoma s/p parathyroidectomy Osteoporosis Past Family History Family History Other No family history of adverse response to anesthesia Past Surgical History Surgical History Hx of colonoscopy with polypectomy Hx of parathyroidectomy (02/01/24) [facility] Social History Smoking Status: Current every day smoker Smoking cigarettes per day: 10 per day- advised Do You Dip or Chew Tobacco: No Hx Alcohol Use: No Hx Substance Use: No substance use type: does not use Lab Results Anesthesia Preop Results Results Anesthesia Widget: WBC 12.99 K/ul (4.8-10.8) H 02/22/24 Hgb 13.5 g/dl (14.0-18.0) L 02/22/24 Hct 40.1 % (42.0-52.0) L 02/22/24 Plt 380 K/uL (130-400) 02/22/24 Na 139 mmol/L (136-145) 02/22/24 K 4.2 mmol/L (3.5-5.1) 02/22/24 Cl 105 mmol/L (98-107) 02/22/24 CO2 27 mmol/L (21-32) 02/22/24 BUN 14 mg/dl (6-23) 02/22/24 Creat 0.76 mg/dl (0.6-1.4) 02/22/24 Glucose Level 103 mg/dl (70-99(Fasting)) H 02/22/24 TSH 1.439 uIu/ml (0.300-4.500) 02/09/24 Urine Color Yellow 02/09/24 Urine Appearance Clear (Clear) 02/09/24 Urine pH 5.0 (4.5-7.5) 02/09/24 Urine Specific [place] 1.019 (1.000-1.030) 02/09/24 Urine Protein Negative (Negative) 02/09/24 Urine Glucose (UA) Negative (Negative) 02/09/24 Urine Ketones Negative (Negative) 02/09/24 Urine Blood 1+ (Negative) H 02/09/24 Urine Nitrite Negative (Negative) 02/09/24 Urine Bilirubin Negative (Negative) 02/09/24 Urine Urobilinogen Negative (Negative) 02/09/24 Urine Leukocyte Esterase 2+ (Negative) H 02/09/24 Urine WBC (Auto) 21-50 /hpf (0-5) H 02/09/24 Urine RBC (Auto) 3-5 /hpf (0-2) H 02/09/24 Urine Hyaline Casts (Auto) 0-2 /lpf (0-2) 02/09/24 Urine Epithelial Cells (Auto) 0-2 /hpf (0-2) 02/09/24 Urine Bacteria (Auto) None Seen (None Seen) 02/09/24 Testing Laboratory Results (Mild leukocytosis- surgeon's office informed- will leave to surgeon's discretion on how to proceed) 02/22/24= URINE CULTURE: Pseudomonas aeruginosa >100,000 CFU/ml (preliminary findings- will leave final result to surgeon's discretion on how to proceed) Electrocardiogram Date: 02/10/24 Findings: + NSR @ (63bpm) Normal EKG per cardio Chest X-Ray Date: 02/22/24 Findings: + NAD
[2024-02-28] MEDS ORDERED: oxyCODONE/ACETAMINOPHEN 5mg/325mg TAB PO PRN (08:16)
[2024-02-28] MEDS ORDERED: ONDANSETRON INJ 2 MG/ML 2 ML VIAL IV PRN ×2 (08:16→10:25)
[2024-02-28] MEDS ORDERED: PHENAZOPYRIDINE HCL 200 MG TAB PO PRN (08:16)
[2024-02-28] MEDS ORDERED: MoRPHine SULFATE 2 MG/ML CARP IV PRN (08:16)
[2024-02-28] MEDS ORDERED: oxyBUTYnin chloride 5 MG TAB PO PRN (08:16)
--- NOTE | 2024-02-28 08:16 | History & Physical Bridge Note ---
Date of Service February 28, 2024 History & Physical Bridge Note I have examined the patient, reviewed the History & Physical and in the interval since the performance of the History & Physical I have noted the following changes of clinical significance: no changes noted
[2024-02-28] MEDS: LR 15ML/HR IV SCH (09:25)
[2024-02-28] MEDS ORDERED: fentaNYL citrate PF 100 MCG/2 ML VIAL ONE ×2 (09:54→11:02)
[2024-02-28] MEDS ORDERED: MIDAZOLAM HCL 1 MG/ML 2ML VIAL ONE (09:54)
[2024-02-28] MEDS ORDERED: LIDOCAINE 2% 2 ML VIAL/AMP(20MG/ML) INFIL ONE (09:54)
[2024-02-28] MEDS ORDERED: PROPOFOL IV EMULSION 10 MG/ML 20 ML VIAL IV ONE (09:54)
[2024-02-28 09:55] LABS: Basophils # (auto) 0.04 K/uL (0.00-0.20); Basophils % (auto) 0.4 %; Eosinophils % (auto) 1.8 %; Hematocrit (blood only) 35.2 % (42.0-52.0); Hemoglobin 12.1 g/dl (14.0-18.0); Immature Granulocytes # (auto) 0.09 K/uL (0.01-0.20); Immature Granulocytes % (auto) 0.8 %; Lymphocytes # (auto) 2.46 K/uL (1.20-3.40); Lymphocytes % (auto) 22.3 %; Mean Corpuscular Hemoglobin 31.2 pg (25.0-34.0); Mean Corpuscular Hgb Conc 34.4 g/dL (32.0-36.0); Mean Corpuscular Volume 90.7 fL (80.0-100.0); Mean Platelet Volume 10.3 fL (9.4-12.4); Monocytes # (auto) 0.88 K/uL (0.11-0.59); Neutrophils # (auto) 7.36 K/uL (1.40-6.50); Neutrophils % (auto) 66.7 %; Platelet Count 330 K/uL (130-400); RDW Coefficient of Variation 13.1 % (11.5-14.5); RDW Standard Deviation 43.2 fL (36.4-46.3); Red Blood Count 3.88 M/uL (4.70-6.10); White Blood Count 11.03 K/ul (4.8-10.8)
[2024-02-28 10:08] LABS: Albumin Globulin Ratio 1.2 (0.9-2); Albumin Level 3.8 gm/dl (3.4-5.0); BUN Creatinine Ratio 17.8 (10-20); Bilirubin,Total 0.4 mg/dl (0.2-1.0); Calcium 9.6 mg/dl (8.6-10.3); Creatinine Clr Calc Pharmacy 103.2 ml/min; Globulin 3.1 gm/dl (2.5-4.0); Potassium 4.1 mmol/L (3.5-5.1); Total Protein 6.9 gm/dl (6.0-8.3)
[2024-02-28] MEDS ORDERED: ATROPINE SULFATE 0.1 MG/ML 10ML SYR IV PRN (10:25)
[2024-02-28] MEDS ORDERED: PROMETHAZINE HCL 6.25 MG in SODIUM CHLORIDE 0.9% 50 ML IV PRN (10:25)
[2024-02-28] MEDS ORDERED: ePHEDrine sulfate 50 MG/ML AMP IV PRN (10:25)
[2024-02-28] MEDS ORDERED: DEXAMETHASONE SOD INJ 4 MG/ML VIAL ONE (10:32)
[2024-02-28] MEDS ORDERED: ONDANSETRON INJ 2 MG/ML 2 ML VIAL ONE (10:32)
[2024-02-28] MEDS: CIPROFLOXACIN / D5W 400 MG/200 ML BAG IV SCH ×2 (10:40→13:25)
[2024-02-28] MEDS ORDERED: KETOROLAC 30 MG/ML VIAL ONE (11:42)
[2024-02-28] MEDS ORDERED: PHENYLEPHRINE HCL 10 MG/ML VIAL ONE (11:45)
--- NOTE | 2024-02-28 11:56 | Operative Report ---
PG Post Operative Report Pre & Post Diagnosis Operation Date: 02/28/24 10:45 Pre-Op Diagnosis: Bladder Outlet Obstruction Post-Op Diagnosis: Bladder Outlet Obstruction I identified the patient and participated in the time-out.: Yes Procedure Operation Date: 02/28/24 10:45 Actual Procedures p Transurethral Resection of the Prostate, Urethral Dilation, fulguration of bladder lesion x 3 - Anton Castillo, Surgeon Anton Castillo, II, DO Perioperative Tech None Estimated Blood Loss 10 Findings Consistent with Post-Op Diagnosis Extremely large median lobe. Large Prostate with obstruction. Edematous changes on the bladder neck. Irritated lesions on the posterior wall. Specimens Prostate adenoma. Drains [address] C[address]ter Anesthesia Type General Complications none Disposition Disposition: Recovery Room Indications Patient with obstruction due to prostate enlargement. Risks and benefits discussed at length. Description of Procedure Patient was consented and brought back to the operating room. Patient was placed under anesthesia in the supine position and moved to the dorsal lithotomy p osition. Patient was prepped and draped in the regular sterile fashion. A time out was completed. A 30degree Cystoscope was placed into the urethra. A significant stricture was noted at the meatus. This was dilated. The scope was then placed in bladder and the entire bladder was examined. The UO's were identified as well as the bladder neck, trigone, dome, and the other important landmarks. The prostatic urethra and large lobes/adenoma was assessed and the veru and bladder neck identified and area/size was assessed. The resection scope was placed and the fine bipolar loop was selected. Irritated lesions on the posterior wall and dome. Massive median lobe of the prostate with severe obstruction. Starting at the 5 and 7 o'clock positions, a channel was created from bladder neck to the veru. The lateral lobes were then resected down to capsule fibers. Resection was then taken down to the channel. The Specimen was removed and sent for analysis. The resection bed and any bleeding areas were fulgurated/cauterized and the entire area inspected. All bleeding was controlled. The bladder was inspected a final time. There were 3 irritated lesions at the dome that did have a minor area of ulceration. These were fulgurated. The bladder was emptied and irrigated. All specimen and debris was removed. The scope was removed with the bladder partially full. A catheter was placed and balloon elevated. This was easily irrigated. The patient was cleaned, aroused from anesthesia, and transferred to the pacu in stable condition having tolerated the procedure well with no complications. I was present and participated in all aspects of the procedure. The patient will be monitored in the PACU until transferred. Plan to monitor overnight with catheter in place. Plan removal in approx 1-2 weeks and pathology review. I attest to the content of the Intraoperative Record and any orders documented therein. Any exceptions are noted below.
[2024-02-28] MEDS: fentaNYL citrate PF 100 MCG/2 ML VIAL IV PRN (12:18)
--- NOTE | 2024-02-28 12:26 | Anesthesiology Progress Note ---
Date of Service February 28, 2024 Anesthesia Post Procedure Vital Signs Vital Signs: Temp Pulse Resp BP Pulse Ox O2 Del Method 02/28/24 09:15 36.8 C 84 18 114/74 98 Room Air Transfer of Care Handoff Completed per policy Notes Mental Status: alert / awake / arousable Patient Amnestic to Procedure: Yes Nausea / Vomiting: adequately controlled Pain: adequately controlled Airway Patency, RR, SpO2: stable & adequate BP & HR: stable & adequate Hydration State: stable & adequate Anesthetic Complications: no major complications apparent
[2024-02-28] MEDS: POLYETHYLENE (MIRALAX) 17 GM PACK PO SCH (13:25)
[2024-02-28] MEDS: DOCUSATE SODIUM 100 MG CAP PO SCH (13:25)
[2024-02-28] MEDS: ceFAZolin 2000MG 2,000 MG/15 ML SYR IV SCH (13:26)
[2024-02-29 07:59] VITALS: BP 102/62; PULSE 67; RESP 18; TEMP 98.1; O2SAT 98
--- NOTE | 2024-02-29 08:58 | Urology Progress Note ---
Date of Service February 29, 2024 Assessment & Plan (1) Bladder outlet obstruction: Plan: - Pt POD#1 s/p TURP with Dr. Castillo - Doing well, progressing as expected - Afebrile with stable vitals - Tolerating PO diet - 3 way Mann catheter intact, patent and draining clear yellow urine with CBI on slow - CBI clamped @0755 - will reassess later this AM - Maintain Mann catheter - Anticipate home with Mann catheter later today presuming urine appropriate and he continues to progress as expected - Expected clinical course reviewed, all questions answered - Will arrange outpatient follow-up with our service for voiding trial/post op Admission and Anticipated Discharge Date Admission Date: February 28, 2024 Subjective Patient seen and examined at bedside this morning. He is awake and resting in bed. No acute issues overnight. Tolerating diet. Denies pain. Mann intact and draining clear yellow urine with CBI on slow. CBI clamped during exam at 0755. Reports occasional sweats overnight, but denies fever or chills. Review of Systems Constitutional: as per Subjective / HPI Genitourinary: + as per Subjective / HPI Physical Exam Constitutional: well developed and well nourished; no acute distress Respiratory: normal respiratory effort; no respiratory distress and no labored breathing Gastrointestinal (Abdomen): Inspection/Auscultation: abdomen normal to inspection Musculoskeletal: Head/Neck/Chest: normocephalic Neurologic: moves all extremities and awake Psychiatric: Orientation: alert and oriented x 3 Genitourinary: Mann intact and draining clear yellow urine with CBI on slow. CBI clamped during exam at 0755. Results & Data Vital Signs (Past 12 Hours) Vital Signs Temp Pulse Resp BP Pulse Ox O2 Del Method 02/29/24 07:58 36.7 C 67 18 102/62 98 Room Air PG Care Time/CCT Total # of Minutes Spent Total Time Spent with Patient: Total time spent is greater than 50% in coordination of care (as documented) at patient's floor/unit and/or counseling patient: Coding Level of Care Code None Diagnoses Bladder outlet obstruction N32.0
== END 2024-02-29 11:36 | disposition home or self-care (01) ==
LOC: ASU 08:11 → 3N 08:11

== ENCOUNTER 2024-03-13 15:15 | Inpatient (IN) ==
[2024-03-13 16:27] LABS: Basophils # (auto) 0.06 K/uL (0.00-0.20); Basophils % (auto) 0.3 %; Eosinophils # (auto) 0.02 K/uL (0.00-0.50); Eosinophils % (auto) 0.1 %; Hematocrit (blood only) 34.1 % (42.0-52.0); Hemoglobin 11.5 g/dl (14.0-18.0); Immature Granulocytes % (auto) 0.5 %; Lymphocytes # (auto) 1.88 K/uL (1.20-3.40); Lymphocytes % (auto) 10.3 %; Mean Corpuscular Hemoglobin 30.5 pg (25.0-34.0); Mean Corpuscular Hgb Conc 33.7 g/dL (32.0-36.0); Mean Corpuscular Volume 90.5 fL (80.0-100.0); Mean Platelet Volume 9.8 fL (9.4-12.4); Monocytes # (auto) 1.61 K/uL (0.11-0.59); Monocytes % (auto) 8.8 %; Neutrophils # (auto) 14.58 K/uL (1.40-6.50); Platelet Count 473 K/uL (130-400); RDW Coefficient of Variation 13.1 % (11.5-14.5); RDW Standard Deviation 43.5 fL (36.4-46.3); Red Blood Count 3.77 M/uL (4.70-6.10); White Blood Count 18.25 K/ul (4.8-10.8)
[2024-03-13 16:40] LABS: Albumin Globulin Ratio 1.3 (0.9-2); BUN Creatinine Ratio 18.3 (10-20); Bilirubin,Total 0.6 mg/dl (0.2-1.0); Calcium 9.3 mg/dl (8.6-10.3); Creatinine Clr Calc Pharmacy 91.9 ml/min; Globulin 3.1 gm/dl (2.5-4.0); Potassium 3.9 mmol/L (3.5-5.1); Total Protein 7.1 gm/dl (6.0-8.3)
--- NOTE | 2024-03-13 17:32 | Electrocardiogram Report ---
Test Reason : Blood Pressure : */* mmHG Vent. Rate : 108 BPM Atrial Rate : 108 BPM P-R Int : 122 ms QRS Dur : 80 ms QT Int : 320 ms P-R-T Axes : 59 47 27 degrees QTcB Int : 428 ms Sinus tachycardia Otherwise normal ECG When compared with ECG of 10-Feb-2024 02:12, Vent. rate has increased by [address] no longer elevated in Anterior leads Confirmed by Piter Arreola ([id number]) on 03/13/2024 5:31:35 PM Referred By: Confirmed By: Piter Arreola
[2024-03-13 17:42] LABS: Appearance Urine Cloudy (Clear); Bacteria Urine Automated 4+ (None Seen); Bilirubin Urine Negative (Negative); Blood Urine 3+ (Negative); Color Urine Yellow; Epithelial Cell Urine Auto 0-2 /hpf (0-2); Glucose Urine UA Negative (Negative); Ketones Urine Negative (Negative); Leukocyte Esterase Urine 3+ (Negative); Nitrite Urine Positive (Negative); Protein Urine 2+ (Negative); RBC Urine Automated >20 /hpf (0-2); Specific Gravity Urine 1.014 (1.000-1.030); Urobilinogen Urine Negative (Negative); WBC Urine Automated >50 /hpf (0-5)
[2024-03-13] MEDS: CEFEPIME 2000MG 2,000 MG/20 ML SYR IV STA (18:23)
[2024-03-13] MEDS: SODIUM CHLORIDE 0.9% 1,000 ML IV ONE (18:23)
--- NOTE | 2024-03-13 19:13 | Emergency Department Note ---
Impression & Plan Acute UTI, Leukocytosis, Anemia, History of prostate surgery ED Provider Note NAME: PARKER GARNER AGE: 54 SEX: M : 1970 ARRIVES VIA: Walk-In INFORMANT: [Patient] ED PROVIDER(S): [Dwayne Lazaro MD] CHIEF COMPLAINT: Fever HISTORY OF PRESENT ILLNESS: The patient is a 54-year-old male who had prostate surgery about 2 weeks ago. He had been on antibiotics, Cipro, this was stopped 6 days ago. He states that 5 days ago, his Adams catheter was removed. Over the last few days, the patient has had some chills and some night sweats. Today, he had a temperature of over 102 F. He was referred to the ER. The patient has noticed some stuffy nose and ear pain. No shortness of breath. He has occasional burning with urination but he was told this was normal after prostate surgery. There has been no vomiting or diarrhea. PMHx/PSHx/Social Hx: See Below PHYSICAL EXAM: GENERAL: Patient is in no acute distress. HEENT: No acute trauma, normocephalic atraumatic, mucous membranes moist, mild nasal congestion. Right TM shows some trace fluid behind the drum, no infection. No throat erythema or exudate. NECK: No stridor, no adenopathy, no meningismus, trachea is midline. LUNGS: Clear to auscultation bilaterally, no wheeze, no rhonchi, breath sounds equal. HEART: Without murmurs gallops or rubs, regular rate and rhythm. ABDOMEN: Soft, nontender, no peritonitis. EXTREMITIES: No cyanosis, full range of motion of all the joints without pain or difficulty. NEUROLOGIC: Oriented x 3, no acute motor or sensory deficits, no focal weakness. SKIN: No jaundice, no diaphoresis. DIFFERENTIAL DIAGNOSIS: Bacteremia, UTI, pyelonephritis, sepsis, viral illness, among others. EMERGENCY DEPARTMENT PROCEDURES: MEDICAL DECISION MAKING: There is a moderate leukocytosis, this would be consistent with infection. A mild anemia was seen with a hemoglobin of 11.5. Patient does carry history of anemia. Platelet count slightly elevated at 473. No renal failure or significant electrolyte abnormality. Lactic acid level was not elevated making severe sepsis less likely. No concerning liver enzyme elevation. Urinalysis does show findings of infection. Respiratory bio fire was negative. On exam, the patient had presented mildly tachycardic but was not toxic or febrile. He was not in pain. Patient was given IV cefepime as antibiotic coverage. He was given IV saline for hydration. With the above interventions, the patient's heart rate has improved, he is resting comfortably. Patient is status post prostate surgery. He presents tachycardic and was found to have a leukocytosis. He has been running a fever. He does have a UTI. I do think a hospital stay is warranted. I did speak with urology, they suggested IV antibiotics, IV hydration and a medicine admission. I spoke with the patient and case management, the on-call hospitalist was consulted. Prior/Outside records/notes reviewed: None ECG per my interpretation: Indication was possible sepsis. The ECG shows a sinus tachycardia with a rate of 108. There is no acute ST elevation, no PVCs. The QTc is 428. Continuous Cardiac Monitoring per my interpretation: An order was placed for continuous cardiac monitoring. The monitor shows a rate of 86 with normal sinus rhythm. Imaging/x-ray results per my interpretation: Chronic Medical/Social conditions affecting care: Recent prostate surgery. Care/Management discussed with: Urology-Dr. Castillo. Case management and the on-call hospitalist. Level of care consideration(s): After review of the information above and other included data: --I believe the patient requires escalation of care to admission DISPOSITION: Admission Past Med/Surg History Problem List (Updated 03/14/24 @ 00:01 by Dwayne Lazaro MD) History of prostate surgery (Acute) Anemia (Acute) Leukocytosis (Acute) Acute UTI (Acute) Urinary tract infection Prostate abscess Encounter for pre-operative examination Postobstructive diuresis (Acute) Constipation (Acute) Bladder outlet obstruction (Acute) Medical History GERD (gastroesophageal reflux disease) per records History of hyperparathyroidism and parathyroid adenoma s/p parathyroidectomy Constipation Bladder outlet obstruction s/p adams placement (patient admitted to [facility] 02/09/24-02/11/24) Osteoporosis Surgical History Hx of parathyroidectomy (02/01/24) [facility] Hx of colonoscopy with polypectomy Family History Other No family history of adverse response to anesthesia Social History Smoking Status: Current every day smoker Tobacco Type: Cigarettes Cigarettes Per Day: 10; Second Hand Exposure: No; Do You Dip or Chew Tobacco: No; Tobacco Cessation Education Requested by Patient: No Hx Alcohol Use: No Hx Substance Use: No Preferred Language: Belarusian Communication Ability: Effective Counter Intelligence Agent Required: No Beliefs That Will Affect Care: None Current Living Situation: Family Other Information That Helps Us Care for You: No Feels Safe at Home: Yes Safety Concerns: Feels Safe At This Time Assistive Devices: None Allergies Allergies Allergy/AdvReac Type Severity Reaction Status Date / Time No Known Allergies Allergy Verified 03/08/24 13:00 Home Meds Home Medications Medication Instructions Recorded Confirmed polyethylene glycol 3350 17 gram 17 g PO Q2D PRN Constipation 02/28/24 03/13/24 oral powder packet (Miralax) acetaminophen 500 mg tablet 500 mg PO Q6H PRN Pain 03/13/24 03/13/24 multivitamin 1 tab PO DAILY 03/13/24 03/13/24 Previous Rx's Medication Instructions Recorded tamsulosin 0.4 mg capsule 0.4 mg PO DAILY #60 caps 02/11/24 Results & Data (ED) Vital Signs Vital Signs - 24 hr 03/13/24 15:47 03/13/24 17:09 03/13/24 18:42 Temperature 36.9 C 37.7 C H 37.3 C Temperature Source Oral Oral Oral Pulse Rate 120 H Pulse Rate [Right Finger] 102 H 86 Respiratory Rate 16 20 18 Respiratory Effort / Characteristics Non-Labored Spontaneous Non-Labored Spontaneous Respiratory Depth Normal Normal Respiratory Pattern Regular Blood Pressure 117/77 Blood Pressure [Right Arm] 106/72 121/75 Blood Pressure Mean 90 Blood Pressure Mean [Right Arm] 83 90 Blood Pressure Position Sitting Pulse Oximetry 96 97 99 Oxygen Delivery Method Room Air Room Air Sepsis Recent Fever Within 48 Hours No Sepsis New/Unexplained Change in Mental Status N/A Sepsis Action Taken by Nursing No Action Required Home Medications Current Medication List: was personally reviewed by me Laboratory Data Attestation: I reviewed the patient's lab results. 03/13/24 16:05 03/13/24 16:05 Lab Results 03/13/24 03/13/24 03/13/24 Range/Units 16:05 17:15 18:15 WBC 18.25 H (4.8-10.8) K/ul RBC 3.77 L (4.70-6.10) M/uL Hgb 11.5 L (14.0-18.0) g/dl Hct 34.1 L (42.0-52.0) % MCV 90.5 (80.0-100.0) fL MCH 30.5 (25.0-34.0) pg MCHC 33.7 (32.0-36.0) g/dL RDW Std Deviation 43.5 (36.4-46.3) fL RDW Coeff of Lav[place] 13.1 (11.5-14.5) % Plt Count 473 H (130-400) K/uL MPV 9.8 (9.4-12.4) fL Immature Gran % (Auto) 0.5 % Neut % (Auto) 80.0 % Lymph % (Auto) 10.3 % [place] % (Auto) 8.8 % Eos % (Auto) 0.1 % Baso % (Auto) 0.3 % Neut # (Auto) 14.58 H (1.40-6.50) K/uL Lymph # (Auto) 1.88 (1.20-3.40) K/uL [place] # (Auto) 1.61 H (0.11-0.59) K/uL Eos # (Auto) 0.02 (0.00-0.50) K/uL Baso # (Auto) 0.06 (0.00-0.20) K/uL Immature Gran # (Auto) 0.10 (0.01-0.20) K/uL Sodium 135 L (136-145) mmol/L Potassium 3.9 (3.5-5.1) mmol/L Chloride 103 (98-107) mmol/L Carbon Dioxide 24 (21-32) mmol/L Anion Gap 8 (3-11) BUN 15 (6-23) mg/dl Creatinine 0.82 (0.6-1.4) mg/dl Est Cr Clr Drug Dosing 91.9 ml/min eGFR 103.74 BUN/Creatinine Ratio 18.3 (10-20) Glucose 105 H (70-99(Fasting)) mg/dl Lactate (0.4-2.0) mmol/L Calcium 9.3 (8.6-10.3) mg/dl Total Bilirubin 0.6 (0.2-1.0) mg/dl AST 11 L (13-39) U/L ALT 18 (7-52) U/L Alkaline Phosphatase 77 (34-104) U/L Total Protein 7.1 (6.0-8.3) gm/dl Albumin 4.0 (3.4-5.0) gm/dl Globulin 3.1 (2.5-4.0) gm/dl Albumin/Globulin Ratio 1.3 (0.9-2) Urine Color Yellow Urine Appearance Cloudy A (Clear) Urine pH 6.0 (4.5-7.5) Ur Specific [place] 1.014 (1.000-1.030) Urine Protein 2+ H (Negative) Urine Glucose (UA) Negative (Negative) Urine Ketones Negative (Negative) Urine Blood 3+ H (Negative) Urine Nitrite Positive A (Negative) Urine Bilirubin Negative (Negative) Urine Urobilinogen Negative (Negative) Ur Leukocyte Esterase 3+ H (Negative) Urine WBC (Auto) >50 H (0-5) /hpf Urine RBC (Auto) >20 H (0-2) /hpf U Hyaline Cast (Auto) 3-5 H (0-2) /lpf U Epithel Cells (Auto) 0-2 (0-2) /hpf Urine Bacteria (Auto) 4+ H (None Seen) Adenovirus (PCR) Not Detected (NotDetected) B. pertussis DNA (PCR) Not Detected (NotDetected) B.parapertussis DNA PCR Not Detected (NotDetected) C. pneumoniae DNA (PCR) Not Detected (NotDetected) Coronavirus OC43 (PCR) Not Detected (NotDetected) Coronavirus HKU1 (PCR) Not Detected (NotDetected) Coronavirus 229E (PCR) Not Detected (NotDetected) SARS-CoV-2 (PCR) Not Detected (NotDetected) Coronavirus NL63 (PCR) Not Detected (NotDetected) Human Metapneumovir PCR Not Detected (NotDetected) Influenza Type A (PCR) Not Detected (NotDetected) Influenza Type B (PCR) Not Detected (NotDetected) M. pneumoniae (PCR) Not Detected (NotDetected) Parainfluenza 1 (PCR) Not Detected (NotDetected) Parainfluenza 2 (PCR) Not Detected (NotDetected) Parainfluenza 3 (PCR) Not Detected (NotDetected) Parainfluenza 4 (PCR) Not Detected (NotDetected) RSV (PCR) Not Detected (NotDetected) Entero/Rhino (PCR) Not Detected (NotDetected) 03/13/24 Range/Units 18:56 WBC (4.8-10.8) K/ul RBC (4.70-6.10) M/uL Hgb (14.0-18.0) g/dl Hct (42.0-52.0) % MCV (80.0-100.0) fL MCH (25.0-34.0) pg MCHC (32.0-36.0) g/dL RDW Std Deviation (36.4-46.3) fL RDW Coeff of [place] (11.5-14.5) % Plt Count (130-400) K/uL MPV (9.4-12.4) fL Immature Gran % (Auto) % Neut % (Auto) % Lymph % (Auto) % [place] % (Auto) % Eos % (Auto) % Baso % (Auto) % Neut # (Auto) (1.40-6.50) K/uL Lymph # (Auto) (1.20-3.40) K/uL [place] # (Auto) (0.11-0.59) K/uL Eos # (Auto) (0.00-0.50) K/uL Baso # (Auto) (0.00-0.20) K/uL Immature Gran # (Auto) (0.01-0.20) K/uL Sodium (136-145) mmol/L Potassium (3.5-5.1) mmol/L Chloride (98-107) mmol/L Carbon Dioxide (21-32) mmol/L Anion Gap (3-11) BUN (6-23) mg/dl Creatinine (0.6-1.4) mg/dl Est Cr Clr Drug Dosing ml/min eGFR BUN/Creatinine Ratio (10-20) Glucose (70-99(Fasting)) mg/dl Lactate 1.0 (0.4-2.0) mmol/L Calcium (8.6-10.3) mg/dl Total Bilirubin (0.2-1.0) mg/dl AST (13-39) U/L ALT (7-52) U/L Alkaline Phosphatase (34-104) U/L Total Protein (6.0-8.3) gm/dl Albumin (3.4-5.0) gm/dl Globulin (2.5-4.0) gm/dl Albumin/Globulin Ratio (0.9-2) Urine Color Urine Appearance (Clear) Urine pH (4.5-7.5) Ur Specific [place] (1.000-1.030) Urine Protein (Negative) Urine Glucose (UA) (Negative) Urine Ketones (Negative) Urine Blood (Negative) Urine Nitrite (Negative) Urine Bilirubin (Negative) Urine Urobilinogen (Negative) Ur Leukocyte Esterase (Negative) Urine WBC (Auto) (0-5) /hpf Urine RBC (Auto) (0-2) /hpf U Hyaline Cast (Auto) (0-2) /lpf U Epithel Cells (Auto) (0-2) /hpf Urine Bacteria (Auto) (None Seen) Adenovirus (PCR) (NotDetected) B. pertussis DNA (PCR) (NotDetected) B.parapertussis DNA PCR (NotDetected) C. pneumoniae DNA (PCR) (NotDetected) Coronavirus OC43 (PCR) (NotDetected) Coronavirus HKU1 (PCR) (NotDetected) Coronavirus 229E (PCR) (NotDetected) SARS-CoV-2 (PCR) (NotDetected) Coronavirus NL63 (PCR) (NotDetected) Human Metapneumovir PCR (NotDetected) Influenza Type A (PCR) (NotDetected) Influenza Type B (PCR) (NotDetected) M. pneumoniae (PCR) (NotDetected) Parainfluenza 1 (PCR) (NotDetected) Parainfluenza 2 (PCR) (NotDetected) Parainfluenza 3 (PCR) (NotDetected) Parainfluenza 4 (PCR) (NotDetected) RSV (PCR) (NotDetected) Entero/Rhino (PCR) (NotDetected) Administered Medications Acetaminophen (Acetaminophen 325 Mg Tab) 650 mg PO Q4H PRN PRN Reason: pain/fever Stop: 04/12/24 21:57 Last Admin: 03/13/24 22:24 Dose: 650 mg Documented By: LYLE Enoxaparin Sodium (Enoxaparin Inj 40 Mg/0.4 Ml Syr) 40 mg SQ Q24H LUIS Stop: 04/12/24 22:29 Last Admin: 03/13/24 22:25 Dose: 40 mg Documented By: LYLE Sodium Chloride (Nss) 1,000 mls @ 125 mls/hr IV .Q8H LUIS Stop: 03/14/24 05:57 Last Admin: 03/13/24 22:22 Dose: 125 mls/hr Documented By: YLLE Discontinued Medications Cefepime HCl (Maxipime 2000mg) 2,000 mg in 20 mls @ 5 mls/min IV NOW STA; Protocol Stop: 03/13/24 18:01 Last Admin: 03/13/24 18:23 Dose: 5 mls/min Documented By: MARIA LUZ Sodium Chloride (Nss) 1,000 mls @ 999 mls/hr IV .Q1H1M ONE Stop: 03/13/24 18:58 Last Infusion: 03/13/24 21:08 Dose: Infused Documented By: Admin: 03/13/24 18:23 Dose: 999 mls/hr Documented By: MARIA LUZ Discharge Plan Visit Data Chief Complaint: Fever Stated Complaint: FEVER ED Provider: Dwayne Lazaro Discharge Problem: Acute UTI, Leukocytosis, Anemia, History of prostate surgery Patient Disposition: Admitted As Inpatient Condition: Fair Discharge Instructions Interventions: ED Discharge Assessment Last Done: 03/13/24 20:44 Discharge Problem: Leukocytosis Qualifiers: Leukocytosis type: unspecified Qualified Code(s): D72.829 - Elevated white blood cell count, unspecified Anemia Qualifiers: Anemia type: unspecified type Qualified Code(s): D64.9 - Anemia, unspecified
--- NOTE | 2024-03-13 19:31 | Urology Consultation ---
Date of Consultation March 13, 2024 Assessment & Plan (1) Urinary tract infection: I discussed with the treating emergency room physician the patient is being admitted on the hospitalist service. From a urologic perspective we recommend the following: It appears that the patient has a urinary tract infection by urinalysis He has been started on broad-spectrum antibiotics in form of cefepime which should continue. Antibiotics can be tailored based on pending culture results. (Of note the patient did have a Pseudomonas urinary tract infection at the end of January 2024 which was pansensitive) Would recommend following serial labs Would monitor the patient for urinary retention but this does not appear to be problematic at this time Additional recommendations with forthcoming based on his clinical course as unfolds History of Present Illness Reason for Consultation: Fever, status post TURP History of Present Illness This is a 54-year-old male who underwent a recent urologic procedure by Dr. Anton Castillo of [facility] physician group urology. On 02/28/2024 the patient had a transurethral resection of the prostate as well as fulguration of a bladder lesion. The patient notes that prior to this procedure he was having a great deal of difficulty urinating. Patient reports following his procedure he was in the hospital overnight and discharged home with Adams catheter in place. He notes that his Adams catheter was removed approximate 5 days ago and since its removal he has had a much easier time urinating. He notes his urine stream is strong and he feels as though he can empty his bladder completely. Patient notes approximate 2 to 3 days ago he developed some shakes and chills and over the past 24 hours he noted he was febrile at home with temperatures as high as 102.9. He reports some intermittent dysuria. He denies any abdominal pain. He denies any nausea or vomiting notes his appetite is normal. He denies any back or flank pain. Since arrival to the emergency department patient had labs and imaging which independent reviewed. CBC revealed white blood cell count was 18.2. Hemoglobin and hematocrit are 11.5 and 34.1. Platelet count was noted to be 473,000. Chemistry profile showed sodium was 135 with a normal potassium. BUN and creatinine were normal and not elevated. He had a lactic acid level that was not elevated at 1.0. Urinalysis was concerning for urinary tract infection as it was positive for nitrites as well as 3+ leukocyte Estrace. He had pyuria with greater than 50 white blood cells per high-power field and 4+ bacteria on the study. At the time of my interview he was resting comfortably in bed he was in no distress. Allergies Allergy/AdvReac Type Severity Reaction Status Date / Time No Known Allergies Allergy Verified 03/08/24 13:00 Home Medications Medication Instructions Recorded Confirmed Type tamsulosin 0.4 mg capsule 0.4 mg PO DAILY #60 caps 02/11/24 03/13/24 Rx polyethylene glycol 3350 17 gram 17 g PO Q2D PRN Constipation 02/28/24 03/13/24 History oral powder packet (Miralax) acetaminophen 500 mg tablet 500 mg PO Q6H PRN Pain 03/13/24 03/13/24 History multivitamin 1 tab PO DAILY 03/13/24 03/13/24 History Patient History Medical History GERD (gastroesophageal reflux disease) per records History of hyperparathyroidism and parathyroid adenoma s/p parathyroidectomy Constipation Bladder outlet obstruction s/p adams placement (patient admitted to [facility] 02/09/24-02/11/24) Osteoporosis Surgical History Hx of parathyroidectomy (02/01/24) [facility] [place] Hx of colonoscopy with polypectomy Family History Other No family history of adverse response to anesthesia Social History Smoking Status: Never smoker Tobacco Type: Cigarettes Cigarettes Per Day: 10 per day- advised; Second Hand Exposure: No; Do You Dip or Chew Tobacco: No; Hx Alcohol Use: No Hx Substance Use: No Preferred Language: Faroese Communication Ability: Effective Business Partner Required: No Beliefs That Will Affect Care: None Current Living Situation: Family Feels Safe at Home: Yes Assistive Devices: Glasses Review of Systems Review of Systems: All systems reviewed & are unremarkable except as noted in HPI & below Physical Exam Constitutional: WD/WN, vitals as above Eyes: no conjunctival abnormality Wears glasses ENMT: Ears: no hearing impairment and no external ear abnormality Mouth: no oropharynx abnormality Neck: trachea midline Respiratory: normal respiratory effort; no respiratory distress and no labored breathing Cardiovascular: Rate/Rhythm: regular rate and regular rhythm Vessels: dorsalis pedis pulses present and radial pulses present Gastrointestinal (Abdomen): Soft, nondistended, nontender to palpation Musculoskeletal: No calf tenderness, feet are warm and well-perfused Skin: no rashes Neurologic: moves all extremities Psychiatric: A+Ox3, euthymic affect Genitourinary: No CVA tenderness with percussion bilaterally Results & Data Vital Signs (Past 12 Hours) Vital Signs Temp Pulse Pulse Resp BP BP Pulse Ox 03/13/24 18:42 37.3 C 86 18 121/75 99 03/13/24 17:09 37.7 C H 102 H 20 106/72 97 03/13/24 15:47 36.9 C 120 H 16 117/77 96 O2 Del Method 03/13/24 18:42 03/13/24 17:09 Room Air 03/13/24 15:47 Room Air PG Care Time/CCT Total # of Minutes Spent Total Time Spent with Patient: Total time spent is greater than 50% in coordination of care (as documented) at patient's floor/unit and/or counseling patient: Coding Level of Care Code 11890 IN/OBS CONSULT LVL 5,80M Diagnoses Urinary tract infection N39.0
[2024-03-13 19:33] LABS: Adenovirus PCR Not Detected (NotDetected); Bordetella parapertussis PCR Not Detected (NotDetected); Bordetella pertussis PCR Not Detected (NotDetected); Chlamydia pneumoniae PCR Not Detected (NotDetected); Coronavirus 229E PCR Not Detected (NotDetected); Coronavirus CoV-2 (COVID19)PCR Not Detected (NotDetected); Coronavirus HKU1 PCR Not Detected (NotDetected); Coronavirus NL63 PCR Not Detected (NotDetected); Coronavirus OC43PCR Not Detected (NotDetected); Human Metapneumovirus PCR Not Detected (NotDetected); Influenza A PCR Not Detected (NotDetected); Influenza B PCR Not Detected (NotDetected); Mycoplasma pneumoniae PCR Not Detected (NotDetected); Parainfluenza Virus 1 PCR Not Detected (NotDetected); Parainfluenza Virus 2 PCR Not Detected (NotDetected); Parainfluenza Virus 3 PCR Not Detected (NotDetected); Parainfluenza Virus 4 PCR Not Detected (NotDetected); Respiratory Syncytial VirusPCR Not Detected (NotDetected); Rhinovirus/Enterovirus PCR Not Detected (NotDetected)
--- NOTE | 2024-03-13 20:48 | History & Physical Report ---
Date of Service March 13, 2024 Assessment & Plan (1) Urinary tract infection: Plan: 54-year-old male with past medical history significant for primary hyperparathyroidism, parathyroid adenoma, GERD, osteoporosis, tobacco use disorder, IgG gliadin antibody positive who recently had TURP procedure comes with fever and found to have UTI. Patient was admitted on 02/09/2024 for pyelonephritis and constipation and proctitis. Treated with antibiotics and at the time he was found to have urinary retention and enlarged prostate and was status post Adams placement. Patient on 02/28/2024 had TURP procedure. He also had urine culture on 02/21 which showed Pseudomonas and treated with Cipro. After procedure he also received Cipro. His Adams was removed 5 days ago. Last Wednesday he had some chills. Wednesday was doing okay. He has some mild burning micturition and attributes it to recent surgery. Sometimes has blood in the urine. Today he had developed temperature of 102.9 and came to the ER. Denies any abdominal pain. No nausea or vomiting. His bowels are moving okay now. Denies chest pain or shortness of breath. Last couple of days he has some stuffy nose and cough. No sore throat. Appetite is okay. No headache. Vision is okay. Currently resting comfortably and hemodynamically stable. Acute UTI Status post TURP procedure on 02/28/2024 for enlarged prostate and urinary retention Biopsy of prostate showing acute prostatitis with focal abscess. No tumor seen Recent urine culture grew Pseudomonas Received IV cefepime in the ER which will be continued On [place] Urology consult Fluids Monitor in the medical floor Fever and leukocytosis Mostly from above Respiratory BioFire negative Follow labs History of primary hyperparathyroidism Status post parathyroidectomy Biopsy showed parathyroid adenoma Follow-up with endocrinology DVT prophylaxis Lovenox Disposition Medical floor Full code. History of Present Illness Chief Complaint: Fevers Primary Care Provider: Sylvia Rubin MD 54-year-old male with past medical history significant for primary hyperparat hyroidism, parathyroid adenoma, GERD, osteoporosis, tobacco use disorder, IgG gliadin antibody positive who recently had TURP procedure comes with fever and found to have UTI. Patient was admitted on 02/09/2024 for pyelonephritis and constipation and proctitis. Treated with antibiotics and at the time he was found to have urinary retention and enlarged prostate and was status post Adams placement. Patient on 02/28/2024 had TURP procedure. He also had urine culture on 02/21 which showed Pseudomonas and treated with Cipro. After procedure he also received Cipro. His Adams was removed 5 days ago. Last Wednesday he had some chills. Wednesday was doing okay. He has some mild burning micturition and attributes it to recent surgery. Sometimes has blood in the urine. Today he had developed temperature of 102.9 and came to the ER. Denies any abdominal pain. No nausea or vomiting. His bowels are moving okay now. Denies chest pain or shortness of breath. Last couple of days he has some stuffy nose and cough. No sore throat. Appetite is okay. No headache. Vision is okay. Currently resting comfortably and hemodynamically stable. Past medical history. As mentioned above Past surgical history. Colonoscopy. EGD. Parathyroidectomy bilateral. Recent TURP procedure. Social history. Smokes 0.5 packs a day. Smoked for 26 years. Quit alcohol 2017 per records. No drug use. Family history. Father has diabetes. Allergies Allergy/AdvReac Type Severity Reaction Status Date / Time No Known Allergies Allergy Verified 03/08/24 13:00 Home Medications Medication Instructions Recorded Confirmed Type tamsulosin 0.4 mg capsule 0.4 mg PO DAILY #60 caps 02/11/24 03/13/24 Rx polyethylene glycol 3350 17 gram 17 g PO Q2D PRN Constipation 02/28/24 03/13/24 History oral powder packet (Miralax) acetaminophen 500 mg tablet 500 mg PO Q6H PRN Pain 03/13/24 03/13/24 History multivitamin 1 tab PO DAILY 03/13/24 03/13/24 History Past Med/Surg History Problem List (Updated 03/14/24 @ 00:01 by Dwayne Lazaro MD) History of prostate surgery (Acute) Anemia (Acute) Leukocytosis (Acute) Acute UTI (Acute) Urinary tract infection Prostate abscess Encounter for pre-operative examination Postobstructive diuresis (Acute) Constipation (Acute) Bladder outlet obstruction (Acute) Medical History GERD (gastroesophageal reflux disease) per records History of hyperparathyroidism and parathyroid adenoma s/p parathyroidectomy Constipation Bladder outlet obstruction s/p adams placement (patient admitted to [facility] 02/09/24-02/11/24) Osteoporosis Surgical History Hx of parathyroidectomy (02/01/24) [place] Hx of colonoscopy with polypectomy Family History Other No family history of adverse response to anesthesia Social History Smoking Status: Current every day smoker Tobacco Type: Cigarettes Cigarettes Per Day: 10; Second Hand Exposure: No; Do You Dip or Chew Tobacco: No; Tobacco Cessation Education Requested by Patient: No Hx Alcohol Use: No Hx Substance Use: No Preferred Language: Azeri Communication Ability: Effective Inter Com Installer Required: No Beliefs That Will Affect Care: None Current Living Situation: Family Other Information That Helps Us Care for You: No Feels Safe at Home: Yes Safety Concerns: Feels Safe At This Time Assistive Devices: None Review of Systems Review of Systems: All systems reviewed & are unremarkable except as noted in HPI & below Physical Exam Physical Exam: General- Not in acute distress Head- atraumatic Eyes- PERRL. ENT- oropharynx clear Neck- supple, no JVD. Lungs- clear to auscultation no wheezing or crackles Heart- regular rate and rhythm; no murmur, no gallop. Abdomen- normal bowel sounds, soft, nontender, no distension Extremities- no pretibial edema, no erythema seen Neuro- alert, oriented PERRL, no facial palsy; no dysarthria; moves extremities Results & Data Results & Data Vital Signs (Past 12 Hours) Vital Signs Temp Pulse Pulse Resp BP BP Pulse Ox 03/13/24 18:42 37.3 C 86 18 121/75 99 03/13/24 17:09 37.7 C H 102 H 20 106/72 97 03/13/24 15:47 36.9 C 120 H 16 117/77 96 O2 Del Method 03/13/24 18:42 03/13/24 17:09 Room Air 03/13/24 15:47 Room Air Diagnostic Findings Laboratory Results WBC 18.25 K/ul (4.8-10.8) H 03/13/24 16:05 RBC 3.77 M/uL (4.70-6.10) L 03/13/24 16:05 Hgb 11.5 g/dl (14.0-18.0) L 03/13/24 16:05 Hct 34.1 % (42.0-52.0) L 03/13/24 16:05 MCV 90.5 fL (80.0-100.0) 03/13/24 16:05 MCH 30.5 pg (25.0-34.0) 03/13/24 16:05 MCHC 33.7 g/dL (32.0-36.0) 03/13/24 16:05 RDW Std Deviation 43.5 fL (36.4-46.3) 03/13/24 16:05 RDW Coeff of [place]on 13.1 % (11.5-14.5) 03/13/24 16:05 Plt Count 473 K/uL (130-400) H 03/13/24 16:05 MPV 9.8 fL (9.4-12.4) 03/13/24 16:05 Immature Gran % (Auto) 0.5 % 03/13/24 16:05 Neut % (Auto) 80.0 % 03/13/24 16:05 Lymph % (Auto) 10.3 % 03/13/24 16:05 Page % (Auto) 8.8 % 03/13/24 16:05 Eos % (Auto) 0.1 % 03/13/24 16:05 Baso % (Auto) 0.3 % 03/13/24 16:05 Neut # (Auto) 14.58 K/uL (1.40-6.50) H 03/13/24 16:05 Lymph # (Auto) 1.88 K/uL (1.20-3.40) 03/13/24 16:05 Page # (Auto) 1.61 K/uL (0.11-0.59) H 03/13/24 16:05 Eos # (Auto) 0.02 K/uL (0.00-0.50) 03/13/24 16:05 Baso # (Auto) 0.06 K/uL (0.00-0.20) 03/13/24 16:05 Immature Gran # (Auto) 0.10 K/uL (0.01-0.20) 03/13/24 16:05 Sodium 135 mmol/L (136-145) L 03/13/24 16:05 Potassium 3.9 mmol/L (3.5-5.1) 03/13/24 16:05 Chloride 103 mmol/L (98-107) 03/13/24 16:05 Carbon Dioxide 24 mmol/L (21-32) 03/13/24 16:05 Anion Gap 8 (3-11) 03/13/24 16:05 BUN 15 mg/dl (6-23) 03/13/24 16:05 Creatinine 0.82 mg/dl (0.6-1.4) 03/13/24 16:05 Est Cr Clr Drug Dosing 91.9 ml/min 03/13/24 16:05 eGFR 103.74 03/13/24 16:05 BUN/Creatinine Ratio 18.3 (10-20) 03/13/24 16:05 Glucose 105 mg/dl (70-99(Fasting)) H 03/13/24 16:05 Lactate 1.0 mmol/L (0.4-2.0) 03/13/24 18:56 Calcium 9.3 mg/dl (8.6-10.3) 03/13/24 16:05 Total Bilirubin 0.6 mg/dl (0.2-1.0) 03/13/24 16:05 AST 11 U/L (13-39) L 03/13/24 16:05 ALT 18 U/L (7-52) 03/13/24 16:05 Alkaline Phosphatase 77 U/L (34-104) 03/13/24 16:05 Total Protein 7.1 gm/dl (6.0-8.3) 03/13/24 16:05 Albumin 4.0 gm/dl (3.4-5.0) 03/13/24 16:05 Globulin 3.1 gm/dl (2.5-4.0) 03/13/24 16:05 Albumin/Globulin Ratio 1.3 (0.9-2) 03/13/24 16:05 Urine Color Yellow 03/13/24 17:15 Urine Appearance Cloudy (Clear) A 03/13/24 17:15 Urine pH 6.0 (4.5-7.5) 03/13/24 17:15 Ur Specific [place] 1.014 (1.000-1.030) 03/13/24 17:15 Urine Protein 2+ (Negative) H 03/13/24 17:15 Urine Glucose (UA) Negative (Negative) 03/13/24 17:15 Urine Ketones Negative (Negative) 03/13/24 17:15 Urine Blood 3+ (Negative) H 03/13/24 17:15 Urine Nitrite Positive (Negative) A 03/13/24 17:15 Urine Bilirubin Negative (Negative) 03/13/24 17:15 Urine Urobilinogen Negative (Negative) 03/13/24 17:15 Ur Leukocyte Esterase 3+ (Negative) H 03/13/24 17:15 Urine WBC (Auto) >50 /hpf (0-5) H 03/13/24 17:15 Urine RBC (Auto) >20 /hpf (0-2) H 03/13/24 17:15 U Hyaline Cast (Auto) 3-5 /lpf (0-2) H 03/13/24 17:15 U Epithel Cells (Auto) 0-2 /hpf (0-2) 03/13/24 17:15 Urine Bacteria (Auto) 4+ (None Seen) H 03/13/24 17:15 Adenovirus (PCR) Not Detected (NotDetected) 03/13/24 18:15 B. pertussis DNA (PCR) Not Detected (NotDetected) 03/13/24 18:15 B.parapertussis DNA PCR Not Detected (NotDetected) 03/13/24 18:15 C. pneumoniae DNA (PCR) Not Detected (NotDetected) 03/13/24 18:15 Coronavirus OC43 (PCR) Not Detected (NotDetected) 03/13/24 18:15 Coronavirus HKU1 (PCR) Not Detected (NotDetected) 03/13/24 18:15 Coronavirus 229E (PCR) Not Detected (NotDetected) 03/13/24 18:15 SARS-CoV-2 (PCR) Not Detected (NotDetected) 03/13/24 18:15 Coronavirus NL63 (PCR) Not Detected (NotDetected) 03/13/24 18:15 Human Metapneumovir PCR Not Detected (NotDetected) 03/13/24 18:15 Influenza Type A (PCR) Not Detected (NotDetected) 03/13/24 18:15 Influenza Type B (PCR) Not Detected (NotDetected) 03/13/24 18:15 M. pneumoniae (PCR) Not Detected (NotDetected) 03/13/24 18:15 Parainfluenza 1 (PCR) Not Detected (NotDetected) 03/13/24 18:15 Parainfluenza 2 (PCR) Not Detected (NotDetected) 03/13/24 18:15 Parainfluenza 3 (PCR) Not Detected (NotDetected) 03/13/24 18:15 Parainfluenza 4 (PCR) Not Detected (NotDetected) 03/13/24 18:15 RSV (PCR) Not Detected (NotDetected) 03/13/24 18:15 Entero/Rhino (PCR) Not Detected (NotDetected) 03/13/24 18:15 ECG Additional Comments: ECG. Sinus tachycardia 108. No acute ST seen. QTc 428 Code Status & VTE Plan VTE Prophylaxis Plan VTE Prophylaxis will be ordered: Yes
--- OUTSIDE RECORDS SUMMARY | 2024-03-13 21:48 | External Medical Summary | Summary of Care ---
Author Name Unknown Organization [facility] Address [address] [facility] [place] [address] Phone [phone] Care Team Providers Care Line Cleaner Name Role Phone Sylvia Andino MD Primary Care Prov ider Reason for Visit * Reason Onset Date Comments Medication Pre-auth 12/14/2023 Reclast Encounter Details Date Type Department Care Team (Late st Contact Info) Description 12/14/2023 Telephone Hematology/Oncology Treatment, [place] [address] [place] [address] Liam Kimble MD [address] [place] [id number] Medication Pre-auth (Reclast) Allergies No known active allergiesdocumented as of this encounter (statuses as of 03/13/2024) Medications No known medicationsdocumented as of this encounter (statuses as of 03/13/2024) Active Problems Problem Noted Date Diagnosed Date Hyperparathyroidism, primary 12/14/2023 Parathyroid adenoma 12/07/2023 Other osteoporosis without current pathological fracture 12/07/2023 IgG Gliadin antibody positive 05/26/2023 Bloating 05/26/2023 Gastroesophageal reflux disease without esophagi tis 11/12/2014 Tobacco use disorder documented as of this encounter (statuses as of 03/13/2024) Resolved Problems Problem Noted Date Diagnosed Date Resolved Date ADVANCE DIRECTIVE INFORMATION 02/09/2005 12/27/2023 Overview (02/09/2005): No, Advance Directive brochure given to patient. documented as of this encounter (statuses as of 03/13/2024) Immunizations Name Administration Dates Next Due Pneumococcal [...] alcohol) quit 5 years ago ( 2018) PHQ-2 Answer Date Recorded PHQ Adult Total Score 0 03/02/2024 Hunger Vital Sign Answer Date Recorded Within the past 12 months, y ou worried that your food would run out before you got the money to buy more. Never true 03/02/19 25 Within the past 12 months, t he food you bought just didn't last and you didn't have money to get more. Never true 03/02/2024 Childcare Answer Date Recorded Do you feel overwhelmed with taking care of a child, family member or friend? No 03/02/2024 Does your family need help f inding childcare? (Household - for ages 0-17 years) Not on file 03/02/2024 Clothing Answer Date Recorded Have you been unable to get clothing when it was really needed? No 03/02/2024 Is your family able to get c lothes or diapers when needed? (Household - for ages 0-17 years) Not on file 03/02/2024 Personal Safety Answer Date Recorded Do you feel unsafe or have concerns for your saf ety? No 03/02/2024 Do you have concerns for you r family's safety? (Household - for ages 0-17 years) Not on file 03/02/2024 Utilities Answer Date Recorded Do you have trouble paying y our heating, water, or electric bill? No 03/02/2024 Is your family able to pay t he heat, water, or electric bill? (Household - for ages 0-17 years) Not on file 03/02/2024 Does your family have access to good internet? (Household - for ages 0-17 years) Not on file 03/02/2024 Employment Status Answer Date Recorded Are you unemployed or without regular income? No 03/02/2024 Does the household have a re gular source of income? (Household - for ages 0-17 years) Not on file 03/02/2024 Social Connections Answer Date Recorded How often do you feel lonely or isolated from th ose around you? Never 03/02/2024 Financial Resource Strain Answer Date R ecorded Do you have any trouble payi ng for your medications, or do you think you might in the future? No 03/02/2024 Does your family have troubl e paying for medicine? (Household - for ages 0-17 years) Not on file 03/02/2024 Transportation Needs Answer Date Record ed READ ONLY Do you have troubl e getting a ride to medical visits or work? Never True 03/02/2024 Does your family have a hard time getting a ride to doctors visits? (Household - for ages 0-17 years) Not on file 03/02/2024 Has lack of transportation k ept you from medical appointments, meetings, work, or from getting things needed for daily living? Check all that apply. No 03/02/2024 Do you (or your family) have trouble finding or paying for a ride (transportation)? (Household - for ages 0-17 years) Not on file 03/02/2024 Housing Stability Answer Date Recorded Do you currently live in a s helter or have no steady place to sleep at night? No 03/02/2024 READ ONLY Do you think you a re at risk of becoming homeless? No 03/02/2024 Does your family worry about paying for your home or becoming homeless? (Household - for ages 0-17 years) Not on file 0 03/02/2024 Are you homeless or worried that you might be in the future? No 03/02/2024 Are you (or your family) dolores eless or worried that you might be in the future? (Household - for ages 0-17 years) Not on file Food Insecurity Answer Date Recorded Do you need food for this week? No 03/02/2024 Are you able to get enough f ood for your family? (Household - for ages 0-17 years) Not on file 03/02/2024 Does your family need food t his week? (Household - for ages 0-17 years) Not on file 03/02/2024 Do you always have enough fo od for your family? 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 Surgery was 02/01/24- when can patient be scheduled for reclast? * Telephone Encounter - Dylan Hendricks RN [...] 12:54 PM EDT Order received for Reclast [place] plan built and routed to provider Awaiting provider signature, completed lab results, and prior authorization before scheduling patient. documented in this encounter Plan of Treatment Upcoming Encounters Date Type Department Care Team (Late st Contact Info) Description 05/31/2024 11:00 AM EDT Office Visit Family Medicine [address] [place] [phone] Sylvia Andino MD [address] [place] [address] [place] [id number] Health Maintenance Due Date Last Done Comments Hepatitis B Vaccine (1 of 3 - 19+ 3-dose series) 02/03/1988 Pneumococcal Vaccine: 50+ Years (2 of 2 - PCV) 05/05/2013 05/05/2012 Cologuard 2014 Fecal Occult Blood Test 2014 Sigmoidoscopy 2014 Zoster Vaccines (2 of 2) 07/21/2023 05/26/2023 COVID-19 Vaccine (3 - 2023-2 5 season) 2023 05/23/2020, 05/02/2020 Influenza Vaccine (FLU shot) (#1) 2023 11/12/2014, 11/05/2008 *BISPHONATE OR OTHER ACCEPTABLE MEDICATION NEEDED FOR OSTEOPOROSIS (REFER TO SMARTSET #1146) 12/10/2023 Depression Screening 03/02/2025 03/02/2024 DXA Scan 12/05/2025 12/06/2023, 12/06/2023 Lipid Panel 05/25/2028 05/26/2023, 05/05/2012, 02/09/2005 DTap/Tdap Vaccines (3 - Td o r Tdap) 05/25/2033 05/26/2023, 03/13/2011 Colonoscopy 01/25/2034 01/26/2024, 11/01/2023, 11/01/2023 Colorectal Cancer Screening 01/25/2034 VITAMIN D LEVEL ONCE IN A LIFETIME-USE SMARTSET# [id number] Completed 06/28/2023 HPV (Gardasil) Vaccine Aged Out No lo nger eligible based on patient's age to complete this topic MENINGOCOCCAL (MENACTRA/MENVEO) Aged Out No longer eligible b ased on patient's age to complete this topic documented as of this encounter Medical Devices Not on filedocumented as of this encounter Care Teams Line Cleaner Relationship Specialty Start Date End Date Sylvia Andino MD [address] [place] [address] [place] [address] PCP - General Family Medicine 05/26/23 documented as of this encounter
[2024-03-13] MEDS ORDERED: POLYETHYLENE (MIRALAX) 17 GM PACK PO PRN (21:58)
[2024-03-13] MEDS: SODIUM CHLORIDE 0.9% 1,000 ML IV SCH (22:22)
[2024-03-13] MEDS: ACETAMINOPHEN 325 MG TAB PO PRN (22:24)
[2024-03-13] MEDS: ENOXAPARIN INJ 40 MG/0.4 ML SYR SQ SCH (22:25)
[2024-03-14] MEDS: CEFEPIME 2000MG 2,000 MG/20 ML SYR IV SCH (01:42)
[2024-03-14 06:34] LABS: Basophils # (auto) 0.05 K/uL (0.00-0.20); Basophils % (auto) 0.3 %; Eosinophils # (auto) 0.05 K/uL (0.00-0.50); Eosinophils % (auto) 0.3 %; Hematocrit (blood only) 29.2 % (42.0-52.0); Hemoglobin 9.7 g/dl (14.0-18.0); Immature Granulocytes # (auto) 0.07 K/uL (0.01-0.20); Immature Granulocytes % (auto) 0.5 %; Lymphocytes # (auto) 1.84 K/uL (1.20-3.40); Lymphocytes % (auto) 12.5 %; Mean Corpuscular Hemoglobin 30.4 pg (25.0-34.0); Mean Corpuscular Hgb Conc 33.2 g/dL (32.0-36.0); Mean Corpuscular Volume 91.5 fL (80.0-100.0); Monocytes # (auto) 1.47 K/uL (0.11-0.59); Neutrophils # (auto) 11.24 K/uL (1.40-6.50); Neutrophils % (auto) 76.4 %; Platelet Count 373 K/uL (130-400); RDW Coefficient of Variation 13.1 % (11.5-14.5); RDW Standard Deviation 44.6 fL (36.4-46.3); Red Blood Count 3.19 M/uL (4.70-6.10); White Blood Count 14.72 K/ul (4.8-10.8)
[2024-03-14 06:45] LABS: BUN Creatinine Ratio 22.5 (10-20); Calcium 8.8 mg/dl (8.6-10.3); Creatinine Clr Calc Pharmacy 106.1 ml/min; Magnesium 1.7 mg/dl (1.7-2.4); Potassium 3.7 mmol/L (3.5-5.1)
[2024-03-14] MEDS: TAMSULOSIN HCL 0.4 MG CAP PO SCH (09:14)
[2024-03-14] MEDS: MULTIVITAMIN TAB PO SCH (09:14)
--- NOTE | 2024-03-14 09:29 | Urology Progress Note ---
Date of Service March 14, 2024 Assessment & Plan (1) Prostate abscess: (2) History of prostate surgery: Plan Status post TURP Had Pseudomonas in his urine and evidence of prostatic abscess prior to his original surgery Has actually progressed quite well since surgery but manifested some fevers over the past 24 hours necessitating admission Anticipate that he will still have some fluctuating/waxing and waning fevers over the next several days but seems to be improving clinically White count was 18 on arrival is dropped to 14 now Continue cefepime to cover the Pseudomonas that was and await final culture results I do not believe he requires a catheter right now Admission and Anticipated Discharge Date Admission Date: March 13, 2024 Subjective Had fevers overnight but is subjectively feeling very well right now Tmax was 38.6 last evening Reports that he is voiding well and overall feels much better than did prior to his TURP Urine is relatively clear with only small amounts of blood Results & Data Vital Signs (Past 12 Hours) Vital Signs Temp Pulse Pulse Resp BP Pulse Ox O2 Del Method 03/14/24 08:00 37.2 C 64 18 100/61 94 Room Air 03/13/24 21:50 38.6 C H 98 H 16 117/72 95 Room Air PG Care Time/CCT Total # of Minutes Spent Total Time Spent with Patient: Total time spent is greater than 50% in coordination of care (as documented) at patient's floor/unit and/or counseling patient: Coding Level of Care Code 13229 SUB INP/OBS CARE 2/35MIN Diagnoses Prostate abscess N41.2 History of prostate surgery Z98.890
--- NOTE | 2024-03-14 09:35 | Hospitalist Progress Note ---
Date of Service March 14, 2024 Assessment & Plan (1) Urinary tract infection: Plan: 54-year-old male with past medical history significant for primary hyperparathyroidism, parathyroid adenoma, GERD, osteoporosis, tobacco use disorder, IgG gliadin antibody positive who recently had TURP procedure comes with fever and found to have UTI. Patient was admitted on 02/09/2024 for pyelonephritis and constipation and proctitis. Treated with antibiotics and at the time he was found to have urinary retention and enlarged prostate and was status post Mann placement. Patient on 02/28/2024 had TURP procedure. He also had urine culture on 02/21 which showed Pseudomonas and treated with Cipro. His Mann was removed 5 days ago. Patient presented with fever and burning micturition for last few days Acute UTI Acute prostatitis with focal abscess on biopsy Status post TURP procedure on 02/28/2024 for enlarged prostate and urinary retention Biopsy of prostate showing acute prostatitis with focal abscess. No tumor seen Urine Culture from 02/20 grew Pseudomonas Consulted infectious disease as patient's biopsy suggested of acute prostatitis with focal abscess as patient may need prolonged course of antibiotic in setting of those findings. The recommend ciprofloxacin 500 mg twice daily. Will await urine culture and blood culture results before switching over to p.o.; continue on cefepime for the time being. Will follow-up on blood culture/urine culture. History of primary hyperparathyroidism Status post parathyroidectomy Biopsy showed parathyroid adenoma Follow-up with endocrinology DVT prophylaxis Lovenox Disposition Medical floor Full code. Please note the above document was generated using voice recognition software. It may contain grammatical, syntax or spelling errors. Any formal questions or concerns about the content, text or information contained within the body of this dictation should be directly addressed to the provider for clarification Admission and Anticipated Discharge Date Admission Date: March 13, 2024 Subjective Patient seen and examined at bedside. Comfortable; not in distress. Denies fever, chills, chest pain, shortness of breath, abdominal pain or urinary symptoms. No significant overnight events Review of Systems Review of Systems: All systems reviewed & are unremarkable except as noted in Subjective Physical Exam Physical Exam: Constitutional: WD/WN, vitals as above, NAD, sitting up in bed, pleasant, conversing easily Respiratory: normal respiratory effort, lungs clear to auscultation, no wheeze, rales, rhonchi. Normal insp/exp effort, no accessory muscle use Cardiovascular: RRR, no murmur, no edema Vessels: no JVD or carotid bruit Chest: normal inspection of chest Abdomen: normal bowel sounds, soft, nontender, no hepatosplenomegaly Musculoskeletal: no cyanosis or clubbing, extremities motor strength 5/5 Skin: no rashes, warm and dry normal turgor Neurologic: PERRL, EOMI, accommodation nl, no face palsy, no dysarthria CN's II- XI intact bilaterally and moves all extremities Psychiatric: A+Ox3, euthymic affect Results & Data Results & Data Vital Signs (Past 12 Hours) Vital Signs Temp Pulse Pulse Resp BP Pulse Ox O2 Del Method 03/14/24 08:00 37.2 C 64 18 100/61 94 Room Air 03/13/24 21:50 38.6 C H 98 H 16 117/72 95 Room Air
--- NOTE | 2024-03-14 12:43 | Infectious Disease Consult ---
Date of Service March 14, 2024 Telehealth Information I performed this visit using a real-time telehealth connection between my location and the patients location ([facility]). After connecting through interactive tele-video, patient was identified by name and date of and/or wristband check.Patient (or authorized healthcare visitor services representative) was informed that this was a telemedicine visit and it was being conducted confidentially over secure lines. My office door was closed and no one else was present in the room with me.Patient (or authorized healthcare visitor services representative) provided consent to proceed with the visit, expressed an understanding of privacy and security of the telemedicine visit, and gave permission to have a hospital visitor services representative in the room in order to assist with the visit and to conduct portions of the visit, as needed. I informed the patient (or authorized healthcare visitor services representative) that I reviewed their record and presented the opportunity for them to ask any questions regarding the visit today. The patient agreed to participate. Assessment & Plan (1) Acute UTI: (2) Prostate abscess: (3) Urinary tract infection: Plan Assessment: 54-year-old male with PMHx of primary hyperparathyroidism, parathyroid adenoma, GERD, osteoporosis, tobacco use disorder, IgG gliadin antibody positive who recently had TURP procedure who presented to [facility] [place] on 03/13/2024 with fever and found to have UTI. Per notes and chart review, pt was admitted on 02/09/2024 for pyelonephritis and constipation and proctitis. Treated with antibiotics and at the time he was found to have urinary retention and enlarged prostate and was status post Adams placement. Patient on 02/28/2024 had TURP procedure. He also had urine culture on 02/21 which showed Pseudomonas and treated with Cipro. After procedure he also received Cipro. His Adams was removed 5 days ago. Last Wednesday he had some chills. Wednesday was doing okay. Pt received 7 day course followed by another 5 days course of Cipro. At [facility] [place], pt had temperature of 102.9 and came to the ER. Pt started on Cefepime IV. Pt feeling much better today. Plan: 1. UTI and Prostatitis 2/2 Pseudomonas - Based on discussion with patient and chart review it seems patient did not receive a long enough course of antibiotics. Typically acute prostatitis is treatment for 2-4 weeks. Recommend an additional 3 weeks of antibiotics from this admission date. Okay to switch Cefepime IV to Cipro 500 mg PO BID - we will sign off and will not actively monitor patient, please call with issues, concerns, or questions. Pt needs close f/u with urology. History of Present Illness History of Present Illness Reason for Consult: Acute Prostatitis seen in Biopsy along with UTI 54-year-old male with PMHx of primary hyperparathyroidism, parathyroid adenoma, GERD, osteoporosis, tobacco use disorder, IgG gliadin antibody positive who recently had TURP procedure who presented to [facility] [place] on 03/13/2024 with fever and found to have UTI. Per notes and chart review, pt was admitted on 02/09/2024 for pyelonephritis and constipation and proctitis. Treated with antibiotics and at the time he was found to have urinary retention and enlarged prostate and was status post Adams placement. Patient on 02/28/2024 had TURP procedure. He also had urine culture on 02/21 which showed Pseudomonas and treated with Cipro. After procedure he also received Cipro. His Adams was removed 5 days ago. Last Wednesday he had some chills. Wednesday was doing okay. Pt received 7 day course followed by another 5 days course of Cipro. At [facility] [place], pt had temperature of 102.9 and came to the ER. Pt started on Cefepime IV. Pt feeling much better today. ID consulted for evaluation and management. Allergies Allergy/AdvReac Type Severity Reaction Status Date / Time No Known Allergies Allergy Verified 03/08/24 13:00 Home Medications Medication Instructions Recorded Confirmed Type tamsulosin 0.4 mg capsule 0.4 mg PO DAILY #60 caps 02/11/24 03/13/24 Rx polyethylene glycol 3350 17 gram 17 g PO Q2D PRN Constipation 02/28/24 03/13/24 History oral powder packet (Miralax) acetaminophen 500 mg tablet 500 mg PO Q6H PRN Pain 03/13/24 03/13/24 History multivitamin 1 tab PO DAILY 03/13/24 03/13/24 History Patient History Medical History GERD (gastroesophageal reflux disease) per records History of hyperparathyroidism and parathyroid adenoma s/p parathyroidectomy Constipation Bladder outlet obstruction s/p adams placement (patient admitted to [facility] 02/09/24-02/11/24) Osteoporosis Surgical History Hx of parathyroidectomy (02/01/24) ROYAL Koch Hx of colonoscopy with polypectomy Family History Other No family history of adverse response to anesthesia Social History Smoking Status: Current every day smoker Tobacco Type: Cigarettes Cigarettes Per Day: 10; Second Hand Exposure: No; Do You Dip or Chew Tobacco: No; Tobacco Cessation Education Requested by Patient: No Hx Alcohol Use: No Hx Substance Use: No Preferred Language: Slovenian Communication Ability: Effective Bill Sorter Required: No Beliefs That Will Affect Care: None Current Living Situation: Family Other Information That Helps Us Care for You: No Feels Safe at Home: Yes Safety Concerns: Feels Safe At This Time Assistive Devices: None Review of Systems all ROS reviewed and negative. Physical Exam NA Results & Data Vital Signs (Past 12 Hours) Vital Signs Temp Pulse Resp BP Pulse Ox O2 Del Method 03/14/24 08:00 37.2 C 64 18 100/61 94 Room Air Laboratory Results Abnormal Lab Results 03/13/24 03/13/24 03/13/24 16:05 17:15 18:15 WBC 18.25 H RBC 3.77 L Hgb 11.5 L Hct 34.1 L MCV 90.5 MCH 30.5 MCHC 33.7 RDW Std Deviation 43.5 RDW Coeff of Lavon 13.1 Plt Count 473 H MPV 9.8 Immature Gran % (Auto) 0.5 Neut % (Auto) 80.0 Lymph % (Auto) 10.3 Ulster % (Auto) 8.8 Eos % (Auto) 0.1 Baso % (Auto) 0.3 Neut # (Auto) 14.58 H Lymph # (Auto) 1.88 Ulster # (Auto) 1.61 H Eos # (Auto) 0.02 Baso # (Auto) 0.06 Immature Gran # (Auto) 0.10 Sodium 135 L Potassium 3.9 Chloride 103 Carbon Dioxide 24 Anion Gap 8 BUN 15 Creatinine 0.82 Est Cr Clr Drug Dosing 91.9 eGFR 103.74 BUN/Creatinine Ratio 18.3 Glucose 105 H Lactate Calcium 9.3 Magnesium Total Bilirubin 0.6 AST 11 L ALT 18 Alkaline Phosphatase 77 Total Protein 7.1 Albumin 4.0 Globulin 3.1 Albumin/Globulin Ratio 1.3 Urine Color Yellow Urine Appearance Cloudy A Urine pH 6.0 Ur Specific [place] 1.014 Urine Protein 2+ H Urine Glucose (UA) Negative Urine Ketones Negative Urine Blood 3+ H Urine Nitrite Positive A Urine Bilirubin Negative Urine Urobilinogen Negative Ur Leukocyte Esterase 3+ H Urine WBC (Auto) >50 H Urine RBC (Auto) >20 H U Hyaline Cast (Auto) 3-5 H U Epithel Cells (Auto) 0-2 Urine Bacteria (Auto) 4+ H Adenovirus (PCR) Not Detected B. pertussis DNA (PCR) Not Detected B.parapertussis DNA PCR Not Detected C. pneumoniae DNA (PCR) Not Detected Coronavirus OC43 (PCR) Not Detected Coronavirus HKU1 (PCR) Not Detected Coronavirus 229E (PCR) Not Detected SARS-CoV-2 (PCR) Not Detected Coronavirus NL63 (PCR) Not Detected Human Metapneumovir PCR Not Detected Influenza Type A (PCR) Not Detected Influenza Type B (PCR) Not Detected M. pneumoniae (PCR) Not Detected Parainfluenza 1 (PCR) Not Detected Parainfluenza 2 (PCR) Not Detected Parainfluenza 3 (PCR) Not Detected Parainfluenza 4 (PCR) Not Detected RSV (PCR) Not Detected Entero/Rhino (PCR) Not Detected 03/13/24 03/14/24 18:56 06:06 WBC 14.72 H RBC 3.19 L Hgb 9.7 L Hct 29.2 L MCV 91.5 MCH 30.4 MCHC 33.2 RDW Std Deviation 44.6 RDW Coeff of Lavon 13.1 Plt Count 373 MPV 10.0 Immature Gran % (Auto) 0.5 Neut % (Auto) 76.4 Lymph % (Auto) 12.5 Ulster % (Auto) 10.0 Eos % (Auto) 0.3 Baso % (Auto) 0.3 Neut # (Auto) 11.24 H Lymph # (Auto) 1.84 Ulster # (Auto) 1.47 H Eos # (Auto) 0.05 Baso # (Auto) 0.05 Immature Gran # (Auto) 0.07 Sodium 137 Potassium 3.7 Chloride 107 Carbon Dioxide 22 Anion Gap 8 BUN 16 Creatinine 0.71 Est Cr Clr Drug Dosing 106.1 eGFR 108.35 BUN/Creatinine Ratio 22.5 H Glucose 89 Lactate 1.0 Calcium 8.8 Magnesium 1.7 Total Bilirubin AST ALT Alkaline Phosphatase Total Protein Albumin Globulin Albumin/Globulin Ratio Urine Color Urine Appearance Urine pH Ur Specific [place] Urine Protein Urine Glucose (UA) Urine Ketones Urine Blood Urine Nitrite Urine Bilirubin Urine Urobilinogen Ur Leukocyte Esterase Urine WBC (Auto) Urine RBC (Auto) U Hyaline Cast (Auto) U Epithel Cells (Auto) Urine Bacteria (Auto) Adenovirus (PCR) B. pertussis DNA (PCR) B.parapertussis DNA PCR C. pneumoniae DNA (PCR) Coronavirus OC43 (PCR) Coronavirus HKU1 (PCR) Coronavirus 229E (PCR) SARS-CoV-2 (PCR) Coronavirus NL63 (PCR) Human Metapneumovir PCR Influenza Type A (PCR) Influenza Type B (PCR) M. pneumoniae (PCR) Parainfluenza 1 (PCR) Parainfluenza 2 (PCR) Parainfluenza 3 (PCR) Parainfluenza 4 (PCR) RSV (PCR) Entero/Rhino (PCR) Diagnostic Findings Urine culture on 02/22/2024 Urine Culture Final 02/25/24-0702 Organism 1 Pseudomonas aeruginosa [place] Count >100,000 CFU/ml Sens Sensitivities to Follow P aerugino RX M.I.C. --- --------- Amikacin S <=16 Aztreonam S <=4 Cefepime S <=2 Ceftazidime S <=1 Ciprofloxacin S <=0.25 Gentamicin S <=2 Levofloxacin S <=0.5 Meropenem S 2 Tobramycin S <=2 Pip/Tazo S <=8 S = SENSITIVE I = INTERMEDIATE R = RESISTANT Medications Administered Home Medications Medication Instructions Recorded Confirmed Last Taken tamsulosin 0.4 mg capsule 0.4 mg PO DAILY #60 caps 02/11/24 03/13/24 02/27/24 14:00 polyethylene glycol 3350 17 gram 17 g PO Q2D PRN Constipation 02/28/24 03/13/24 02/26/24 08:00 oral powder packet (Miralax) acetaminophen 500 mg tablet 500 mg PO Q6H PRN Pain 03/13/24 03/13/24 Unknown multivitamin 1 tab PO DAILY 03/13/24 03/13/24 Unknown Active Medications Generic Name Dose Route Start Last Admin Trade Name Omid PRN Reason Stop Dose Admin Acetaminophen 650 mg 03/13/24 21:58 03/13/24 22:24 Acetaminophen 325 Mg Tab PO 04/12/24 21:57 650 mg Q4H PRN Administration pain/fever Enoxaparin Sodium 40 mg 03/13/24 22:30 03/13/24 22:25 Enoxaparin Inj 40 Mg/0.4 Ml Syr SQ 04/12/24 22:29 40 mg Q24H LUIS Administration Cefepime HCl 2,000 mg in 20 mls @ 5 mls/min 03/14/24 02:00 03/14/24 10:01 Maxipime 2000mg IV 03/24/24 01:59 5 mls/min Q8H LUIS Administration Protocol Multivitamins 1 tab 03/14/24 09:00 03/14/24 09:14 Multivitamin Tab PO 04/13/24 08:59 1 tab DAILY LUIS Administration Tamsulosin HCl 0.4 mg 03/14/24 09:00 03/14/24 09:14 Tamsulosin Hcl 0.4 Mg Cap PO 04/13/24 08:59 0.4 mg DAILY LUIS Administration
--- NOTE | 2024-03-15 08:51 | Urology Progress Note ---
Date of Service March 15, 2024 Assessment & Plan (1) Prostate abscess: (2) History of prostate surgery: Plan 54yo male who is s/p TURP (02/28/24) admitted with acute UTI Hx Pseudomonas in his urine and evidence of prostatic abscess prior to his original surgery Subjectively feeling well and improving clinically No fevers overnight (Tmax 37.7C yesterday afternoon) Labs today reviewed - WBC 8.39, Creatinine 0.80 He is voiding spontaneously without issue. Continue to monitor. Can bladder scan as needed. Infectious disease consulted, note reviewed. Recommended an additional 3 weeks of antibiotics from this admission date Continue antibiotics and tailor per culture sensitivities and ID recommendations Continue supportive care. Urology will follow along. Admission and Anticipated Discharge Date Admission Date: March 13, 2024 Subjective Pt seen at bedside today Awake and sitting up in bed on arrival No acute distress Subjectively feeling well No fevers overnight Reports he is voiding without issue, has some mild hematuria Denies any significant pain Review of Systems Constitutional: as per Subjective / HPI Genitourinary: + as per Subjective / HPI Physical Exam Constitutional: no acute distress Respiratory: no respiratory distress and no labored breathing Neurologic: moves all extremities and awake Psychiatric: A+Ox3, euthymic affect Results & Data Vital Signs (Past 12 Hours) Vital Signs Temp Pulse Resp BP Pulse Ox O2 Del Method 03/15/24 07:20 37.4 C 86 18 95/61 L 94 Room Air PG Care Time/CCT Total # of Minutes Spent Total Time Spent with Patient: Total time spent is greater than 50% in coordination of care (as documented) at patient's floor/unit and/or counseling patient: Coding Level of Care Code 85533 SUB INP/OBS CARE 2/35MIN Diagnoses Prostate abscess N41.2 History of prostate surgery Z98.890
[2024-03-15 09:20] LABS: BUN Creatinine Ratio 21.3 (10-20); Calcium 8.8 mg/dl (8.6-10.3); Creatinine Clr Calc Pharmacy 94.1 ml/min; Potassium 3.7 mmol/L (3.5-5.1)
[2024-03-15 09:23] LABS: Basophils # (auto) 0.04 K/uL (0.00-0.20); Basophils % (auto) 0.5 %; Eosinophils # (auto) 0.07 K/uL (0.00-0.50); Eosinophils % (auto) 0.8 %; Hematocrit (blood only) 30.1 % (42.0-52.0); Hemoglobin 10.1 g/dl (14.0-18.0); Immature Granulocytes # (auto) 0.04 K/uL (0.01-0.20); Immature Granulocytes % (auto) 0.5 %; Lymphocytes # (auto) 1.26 K/uL (1.20-3.40); Mean Corpuscular Hgb Conc 33.6 g/dL (32.0-36.0); Mean Corpuscular Volume 89.3 fL (80.0-100.0); Mean Platelet Volume 10.1 fL (9.4-12.4); Monocytes # (auto) 0.65 K/uL (0.11-0.59); Monocytes % (auto) 7.7 %; Neutrophils # (auto) 6.33 K/uL (1.40-6.50); Neutrophils % (auto) 75.5 %; Platelet Count 362 K/uL (130-400); RDW Standard Deviation 42.5 fL (36.4-46.3); Red Blood Count 3.37 M/uL (4.70-6.10); White Blood Count 8.39 K/ul (4.8-10.8)
--- NOTE | 2024-03-15 10:04 | Hospitalist Progress Note ---
Date of Service March 15, 2024 Assessment & Plan (1) Urinary tract infection: Plan 54-year-old male with past medical history significant for primary hyperparathyroidism, parathyroid adenoma, GERD, osteoporosis, tobacco use disorder, IgG gliadin antibody positive who recently had TURP procedure comes with fever and found to have UTI. Patient was admitted on 02/09/2024 for pyelonephritis and constipation and proctitis. Treated with antibiotics and at the time he was found to have urinary retention and enlarged prostate and was status post Mann placement. Patient on 02/28/2024 had TURP procedure. He also had urine culture on 02/21 which showed Pseudomonas and treated with Cipro. His Mann was removed 5 days [employer]. Patient presented with fever and burning micturition for last few days Acute UTI Acute prostatitis with focal abscess on biopsy Pt with leukocytosis Status post TURP procedure on 02/28/2024 for enlarged prostate and urinary retention Biopsy of prostate showing acute prostatitis with focal abscess. No tumor seen Urine Culture from 02/20 grew Pseudomonas Urine Culture on admission 03/13 growing ESBL E. coli resistant to multiple antibiotics Blood Cultures NGTD ID consulted and case was once more discussed with infectious disease physician Dr. Andre on March 15, 2024 who recommended the following: -IV Ertapenem for 3-4 weeks -no ciprofloxacin as Pseudomonas is not currently growing in current culture PICC line ordered for placement Urology was consulted, appreciate recs Improving, stable for discharge once abx set up for discharge History of primary hyperparathyroidism Status post parathyroidectomy Biopsy showed parathyroid adenoma Follow-up with endocrinology Diet: HH DVT prophylaxis: Lovenox Dispo: Home once medically stable Admission and Anticipated Discharge Date Admission Date: March 13, 2024 Subjective patient was seen multiple times during the day Initially in the a.m. denied any fevers, chills or night sweats Stated that he was feeling great and was anxious for discharge Later seen once more after discussion with infectious disease and patient's current culture growing ESBL E. coli with multiple p.o. drug resistances Agreeable to PICC line and further antibiotics as well as seeing case management Review of Systems Review of Systems: All systems reviewed & are unremarkable except as noted in Subjective Physical Exam Physical Exam: General: Alert, oriented. No acute distress Psych: Appropriate mood and affect Neuro: No gross deficits HEENT: NC/AT Chest: Nontender to palpation. CV: RRR Resp: Breath sounds clear bilaterally, no increased effort of breathing Abdomen:Soft, nontender Extremities: No edema in lower extremities bilaterally. Results & Data Results & Data Vital Signs (Past 12 Hours) Vital Signs Temp Pulse Resp BP Pulse Ox O2 Del Method 03/15/24 07:20 37.4 C 86 18 95/61 L 94 Room Air
[2024-03-15] MEDS ORDERED: CIPROFLOXACIN 500 MG TAB PO SCH (10:15)
[2024-03-15] MEDS: ERTAPENEM 1000MG 1,000 MG/10 ML SYR IV SCH (11:52)
[2024-03-16 06:58] VITALS: BP 99/62; PULSE 70; RESP 16; TEMP 98.6; O2SAT 97
--- NOTE | 2024-03-16 07:56 | Discharge Summary ---
Discharge Summary Date of Service March 16, 2024 Principal Dx & Hospital Course #1 = Principal Diagnosis (1) Urinary tract infection: Plan 54-year-old male with past medical history significant for primary hyperparathyroidism, parathyroid adenoma, GERD, osteoporosis, tobacco use disorder, IgG gliadin antibody positive who recently had TURP procedure comes with fever and found to have UTI. Patient was admitted on 02/09/2024 for pyelonephritis and constipation and proctitis. Treated with antibiotics and at the time he was found to have urinary retention and enlarged prostate and was status post Mann placement. Patient on 02/28/2024 had TURP procedure. He also had urine culture on 02/21 which showed Pseudomonas and treated with Cipro. His Mann was removed 5 days [employer]. Patient presented with fever and burning micturition for last few days Acute UTI Acute prostatitis with focal abscess on biopsy Pt with leukocytosis Status post TURP procedure on 02/28/2024 for enlarged prostate and urinary retention Biopsy of prostate showing acute prostatitis with focal abscess. No tumor seen Urine Culture from 02/20 grew Pseudomonas Urine Culture on admission 03/13 growing ESBL E. coli resistant to multiple antibiotics Blood Cultures NGTD x 48 hours on discharge, WBC normal ID consulted and case was once more discussed with infectious disease physician Dr. Andre on March 15, 2024 who recommended the following: -IV Ertapenem for 3-4 weeks -no ciprofloxacin as Pseudomonas is not currently growing in current culture PICC line ordered for placement, pt had midline placed on 03/16. Discharged with 4 weeks of IV Ertapenem daily with weekly CBC and CMP, results to go to PCP. Remove line after completion. Case management assisted with ensuring pt's ability to get IV abx as prescribed after discharge. Urology was consulted, appreciate recs. Recommended/stated the following on discharge: "...Continue antibiotics per ID recommendations - Plan is for IV Ertapenem for 3-4 weeks per notes Continue Flomax Will arrange outpatient follow-up with our service..." On the day of discharge pt stated he felt great. WBC was wnl, Blood cx x 2 sets NGTD. Pt noting an episode of night sweats overnight, no documented fevers. Discharged on IV ertapenem as noted above. Close PCP and Urology followup after discharge. History of primary hyperparathyroidism Status post parathyroidectomy Biopsy showed parathyroid adenoma Follow-up with endocrinology Notes For Next Care Provider Please continue to monitor while on IV abx Please ensure close followup with Urology after discharge Medication Changes From Visit Per ID, Dr Andre: IV ertapenem 1g q24h x 4 weeks Admission HPI Per Admitting Provider 54-year-old male with past medical history significant for primary hyperparathyroidism, parathyroid adenoma, GERD, osteoporosis, tobacco use disorder, IgG gliadin antibody positive who recently had TURP procedure comes with fever and found to have UTI. Patient was admitted on 02/09/2024 for pyelonephritis and constipation and proctitis. Treated with antibiotics and at the time he was found to have urinary retention and enlarged prostate and was status post Mann placement. Patient on 02/28/2024 had TURP procedure. He also had urine culture on 02/21 which showed Pseudomonas and treated with Cipro. After procedure he also received Cipro. His Mann was removed 5 days ago. Last Wednesday he had some chills. Wednesday was doing okay. He has some mild burning micturition and attributes it to recent surgery. Sometimes has blood in the urine. Today he had developed temperature of 102.9 and came to the ER. Denies any abdominal pain. No nausea or vomiting. His bowels are moving okay now. Denies chest pain or shortness of breath. Last couple of days he has some stuffy nose and cough. No sore throat. Appetite is okay. No headache. Vision is okay. Currently resting comfortably and hemodynamically stable. Past medical history. As mentioned above Past surgical history. Colonoscopy. EGD. Parathyroidectomy bilateral. Recent TURP procedure. Social history. Smokes 0.5 packs a day. Smoked for 26 years. Quit alcohol 2017 per records. No drug use. Family history. Father has diabetes. Admission Exam Per Admitting Provider General- Not in acute distress Head- atraumatic Eyes- PERRL. ENT- oropharynx clear Neck- supple, no JVD. Lungs- clear to auscultation no wheezing or crackles Heart- regular rate and rhythm; no murmur, no gallop. Abdomen- normal bowel sounds, soft, nontender, no distension Extremities- no pretibial edema, no erythema seen Neuro- alert, oriented PERRL, no facial palsy; no dysarthria; moves extremities Discharge Exam General: Alert, oriented. No acute distress Psych: Appropriate mood and affect Neuro: No gross deficits HEENT: NC/AT Chest: Nontender to palpation. CV: RRR Resp: Breath sounds clear bilaterally, no increased effort of breathing Abdomen:Soft, nontender Extremities: No edema in lower extremities bilaterally. Updated Medication List Medication Instructions Recorded Confirmed Type tamsulosin 0.4 mg capsule 0.4 mg PO DAILY #60 caps 02/11/24 03/13/24 Rx polyethylene glycol 3350 17 gram 17 g PO Q2D PRN Constipation 02/28/24 03/13/24 History oral powder packet (Miralax) acetaminophen 500 mg tablet 500 mg PO Q6H PRN Pain 03/13/24 03/13/24 History multivitamin 1 tab PO DAILY 03/13/24 03/13/24 History Hospital Stay Data Consultations 03/13/24 19:16 ED Decision to Admit Stat 03/13/24 21:58 Consult Urology Routine 03/14/24 09:28 Consult Infectious Diseases Routine Discharge Instructions Given to Patient (Per Discharging Provider) Beau, You were admitted and treated for a prostate abscess and urinary tract infection that grew a very resistant bacterium. You were seen by the infectious disease specialist who recommends that you continue with IV antibiotics for another 4 weeks. Case management has worked with you to have that set up so that you can complete that as an outpatient. Please keep close follow up with your primary care provider after discharge. Please also keep close follow up with Urology after discharge. Please do not hesitate to come back to the emergency room if your symptoms worsen or return. It was a pleasure taking care of you while you were here. Total Time Total Time Spent Total Time Spent (In Minutes): 60
[2024-03-16 08:58] LABS: Basophils # (auto) 0.03 K/uL (0.00-0.20); Basophils % (auto) 0.4 %; Eosinophils # (auto) 0.17 K/uL (0.00-0.50); Eosinophils % (auto) 2.4 %; Hematocrit (blood only) 32.7 % (42.0-52.0); Immature Granulocytes # (auto) 0.01 K/uL (0.01-0.20); Immature Granulocytes % (auto) 0.1 %; Lymphocytes # (auto) 1.67 K/uL (1.20-3.40); Lymphocytes % (auto) 23.2 %; Mean Corpuscular Hemoglobin 30.5 pg (25.0-34.0); Mean Corpuscular Hgb Conc 33.6 g/dL (32.0-36.0); Mean Corpuscular Volume 90.6 fL (80.0-100.0); Mean Platelet Volume 9.9 fL (9.4-12.4); Monocytes # (auto) 0.88 K/uL (0.11-0.59); Monocytes % (auto) 12.2 %; Neutrophils # (auto) 4.45 K/uL (1.40-6.50); Neutrophils % (auto) 61.7 %; Platelet Count 364 K/uL (130-400); RDW Coefficient of Variation 12.9 % (11.5-14.5); RDW Standard Deviation 42.5 fL (36.4-46.3); Red Blood Count 3.61 M/uL (4.70-6.10); White Blood Count 7.21 K/ul (4.8-10.8)
--- NOTE | 2024-03-16 09:15 | Urology Progress Note ---
Date of Service March 16, 2024 Assessment & Plan (1) Prostate abscess: (2) History of prostate surgery: Plan 54yo male who is s/p TURP (02/28/24) admitted with acute UTI Hx Pseudomonas in his urine and evidence of prostatic abscess prior to his original surgery Subjectively feeling well and improving clinically Afebrile with stable vitals Labs today reviewed - No leukocytosis and normal renal function He is voiding spontaneously without issue Urine culture grew E. coli ESBL Blood cultures are preliminary no growth x 24 hours He continues on Ertapenem Continue antibiotics per ID recommendations - Plan is for IV Ertapenem for 3-4 weeks per notes Continue Flomax Will arrange outpatient follow-up with our service Urology will sign-off, please contact us with any questions/concerns Admission and Anticipated Discharge Date Admission Date: March 13, 2024 Subjective Pt seen at bedside today Awake and sitting up in bed on arrival No acute distress Subjectively feeling well No fevers Reports he is voiding without issue Denies any significant pain Review of Systems Constitutional: as per Subjective / HPI Genitourinary: + as per Subjective / HPI Physical Exam Constitutional: no acute distress Respiratory: no respiratory distress and no labored breathing Neurologic: moves all extremities and awake Psychiatric: A+Ox3, euthymic affect Results & Data Vital Signs (Past 12 Hours) Vital Signs Temp Pulse Resp BP Pulse Ox O2 Del Method 03/16/24 06:58 37 C 70 16 99/62 L 97 Room Air PG Care Time/CCT Total # of Minutes Spent Total Time Spent with Patient: Total time spent is greater than 50% in coordination of care (as documented) at patient's floor/unit and/or counseling patient: Coding Level of Care Code 57500 SUB INP/OBS CARE 2/35MIN Diagnoses Prostate abscess N41.2 History of prostate surgery Z98.890
[2024-03-16 09:25] LABS: Albumin Globulin Ratio 1.2 (0.9-2); Albumin Level 3.6 gm/dl (3.4-5.0); BUN Creatinine Ratio 20.8 (10-20); Bilirubin,Total 0.3 mg/dl (0.2-1.0); Calcium 9.1 mg/dl (8.6-10.3); Creatinine Clr Calc Pharmacy 97.8 ml/min; Magnesium 2.1 mg/dl (1.7-2.4); Phosphorus 3.2 mg/dl (2.5-4.9); Potassium 4.5 mmol/L (3.5-5.1); Total Protein 6.6 gm/dl (6.0-8.3)
== END 2024-03-16 13:04 | disposition home health service (06) | DRG 690 ==
LOC: ED 15:15 → 3N 20:17 → SUATTDRO 20:17 → 3N 20:44